=== PATIENT | male | born 1965 | race Caucasian/White ===

== ENCOUNTER 2018-01-08 02:26 | Emergency (ER) | payer BC, MEDICARE, MEDICAID, SELFPAY ==
[2018-01-08 02:27] VITALS: BP 124/69; PULSE 98; RESP 20; TEMP 36.4; O2SAT 95; BMI 31.3
--- NOTE | 2018-01-08 02:41 | NURSING ---
CALLED FOR EKG PER RN REQUEST, PULLED OLD EKG'S FOR
--- NOTE | 2018-01-08 02:45 | RAD_ITS ---
STUDY: X-RAY CHEST REASON FOR EXAM: Male, 52 years old. Chest pain. History of colon cancer with liver metastases. TECHNIQUE: AP portable chest. COMPARISON: January 21, 2017. FINDINGS: Left subclavian port with the tip in the lower superior vena cava unchanged. No pneumothorax. The lungs are clear and expanded. There is no demonstrated pleural abnormality. Normal size heart. Normal mediastinum and ruby. Normal visualized pulmonary arteries. Normal visualized aortic arch and descending thoracic aorta. Normal visualized thoracic spine. Normal visualized ribs, clavicles, and shoulders. There is no demonstrated abnormality of the visualized soft tissue structures of the upper abdomen. RAD/Chest 1 View (Portable) IMPRESSION: Stable chest, no acute cardiopulmonary disease. Electronically Signed: Jose Garay MD at 3:15 EST , Service support ,
--- NOTE | 2018-01-08 02:45 | EKG12_ITS ---
Test Reason : Blood Pressure : / mmHG Vent. Rate : 095 BPM Atrial Rate : 095 BPM P-R Int : 172 ms QRS Dur : 090 ms QT Int : 366 ms P-R-T Axes : 035 042 044 degrees QTc Int : 459 ms Normal sinus rhythm Normal ECG Confirmed by JAZMINE AGUILAR MD ([id number]), assistant production editor EVELYN DILL ([id number]) on 01/08/2018 1:47:28 PM Referred By: ENEDINA Confirmed By:JAZMINE AGUILAR MD
--- NOTE | 2018-01-08 02:49 | CT_ITS ---
STUDY: CTA CHEST REASON FOR EXAM: Male, 52 years old. Back, chest and right neck pain. History of colon cancer with metastases to the liver. RADIATION DOSAGE (If Supplied By Facility): CTDIvol = ( 13.53 ) mGy, DLP = ( 1372.58 ) mGycm TECHNIQUE: The examination was performed with the intravenous administration of 100ml ml of Isovue 370 contrast material. Post-processing of the angiographic images was performed, with multiplanar reformation and 3D reconstruction. Individualized dose optimization techniques were used for this CT. COMPARISON: None. FINDINGS: Left subclavian port with the tip in superior vena cava. Normal enhancement of the main pulmonary artery and right and left pulmonary arteries. Normal enhancement of the bilateral peripheral pulmonary arteries. There is no demonstrated pulmonary embolism. Normal thoracic aorta and visualized great vessels. There is no demonstrated aortic dissection. The heart is not enlarged. Coronary artery calcifications. No pericardial effusion. Normal mediastinum. Normal hilar regions. Normal visualized trachea and bronchi. The lungs are well expanded. Normal pulmonary parenchyma. Normal pleura. Normal chest wall structures. Mild multilevel degenerative changes of the thoracic spine. Postsurgical changes suggestive of biopsy right lobe of the liver. CT/CTA Chest W/WO Contrast IMPRESSION: No pulmonary embolus or thoracic aortic dissection. Coronary artery calcifications. Postsurgical changes of the liver. Electronically Signed: Jose Garay MD at 4:15 EST , Service support ,
--- NOTE | 2018-01-08 02:49 | CT_ITS ---
STUDY: CTA NECK WITH CONTRAST BILATERAL REASON FOR EXAM: Male, 52 years old. Chest, right back and neck pain. History of colon cancer with metastases to the liver. RADIATION DOSAGE (If Supplied By Facility): CTDIvol = ( 13.53 ) mGy, DLP = ( 1372.58 ) mGycm. Individualized dose optimization techniques were used for this CT.? FLUOROSCOPY TIME (if supplied): ( ) minutes/seconds TECHNIQUE: Axial images through the neck after administration of 100 mL Isovue-370 intravenous contrast with sagittal coronal reconstructions. COMPARISON: CT cervical spine December 28, 2016. FINDINGS: Normal aortic arch. Normal takeoff of the great vessels. Normal right common carotid, internal carotid and external carotid arteries. Normal left carotid bulb. Normal left common carotid, internal carotid and external carotid arteries. Very minimal atherosclerotic calcification left carotid bulb. Normal vertebral arteries. Vertebral arteries are codominant. Multilevel degenerative changes of the cervical spine along with prominent anterior osteophytes C4-5 and C5-6 unchanged since December 2016. C4-5 broad-based central disc bulge produces mild spinal stenosis. C5-6 posterior osteophyte and broad-based central disc bulge produces mild spinal stenosis. C6-7 posterior osteophyte broad-based central disc bulge produces mild spinal stenosis. CT/CTA Neck W/WO Contrast IMPRESSION: Normal carotid and vertebral arteries. Multilevel degenerative changes of the mid and lower cervical spine which have remained stable. Electronically Signed: Jose Garay MD at 4:35 EST , Service support ,
--- NOTE | 2018-01-08 02:54 | ED.VISSUMM ---
- ER Visit Summary Date of Service: 01/08/18 Chief Complaint: Near syncope History of Present Illness: The patient is a 52 M who presents about 1 hour after getting up in the middle of the night, he blew his nose and sneezed; he has felt runny nose and congestion just today. He suddenly felt near syncopal, with left-sided chest discomfort, mid back discomfort, right lateral/posterior neck discomfort, and discomfort down his left upper extremity. He has chronic pain in his upper extremities because of neuropathy but states this is significantly worse and more prominent. Chest discomfort is nonpleuritic. He states he does not feel as bad as he did when it occurred, but all the symptoms are still persistent. He denies losing consciousness. No headache. No trauma or falls/injury. His neck on the right hurts worse when he turns his head to the left. States he felt a little short of breath. He says that the nitroglycerin and aspirin a paramedics gave him seem to help his discomfort. He has a history of stage IV colon cancer, last year they found recurrence in his liver, he spent hours in the operating room at [facility] and about a week in the hospital afterwards, and he states he was just given a 6 month cancer-free notice by them. He is also a diet-controlled type II diabetic. Physical Examination: Vital signs are stable with no fever, pulse ox 95 on room air, blood pressure 150/72, heart rate 91, respirations 20. Heart is regular with no murmur. Lungs are clear to auscultation throughout with equal breath sounds present bilaterally. His right sternocleidomastoid is tender to palpation, and he has no carotid bruits bilaterally. He is tender in his back in the right rhomboid area, right thoracic paraspinal, without midline tenderness or signs of trauma or any rash. He states this tenderness is reproducing his pain. He has equal bilateral 2+/4 radial pulses. No calf tenderness or pedal edema. Test Results: EKG is normal, with a rate of 95, sinus rhythm, no acute injury pattern, normal axis, unchanged compared with prior. Other than a glucose of 250, his labs are unremarkable including a negative troponin. Portable chest x-ray unremarkable with no pneumothorax or significantly widened mediastinum/cardiomegaly. CT angiography of the neck and chest were obtained to rule out dissection, they are negative and also show no presence of pulmonary emboli. Emergency Department Course and Treatment: Initially nitroglycerin paste was placed on his chest, on reevaluation he is feeling much better. Paste was removed and he remained feeling well with no further chest discomfort. A 3 hour repeat troponin was obtained, it returned negative. I think this is enough to discharge him home safely. I suspect he had neck and back muscle strain and possibly a vasovagal near syncopal episode. He has chronic peripheral neuropathy in his arms, and with possibly straining his neck, it could have temporarily exacerbated his neuropathy. Treatment Plan: Supportive with close outpatient follow-up as needed or returning to the ER if worse Disposition: Discharge home Impression: Chest pain, unspecified Vasovagal near syncope Cervical and thoracic myofascial strain Upper extremity peripheral neuropathy This note was generated with [employer] dictation software. It may contain incorrect words, spelling, and punctuation that were not noted in review of the chart prior to signing ED Disposition - Plan for ED Patient: Disposition: Home or Assisted Living Chief Complaint: Chest Pain Instructions: ED Chest Pain NonCardiac, ED Sprain Thoracic Spine Referrals: Elizabeth Rodriguez MD [Primary Care Provider] - 3-5 Days if not improving
[2018-01-08 02:55] VITALS: BP 150/72; PULSE 91
[2018-01-08] MEDS: Nitroglycerin Oint 1 INCH PACKET TRANSDERM. (02:55)
[2018-01-08 02:56] LABS: Absolute Lymphocyte Count 1.16 X10^3/ul (0.83-4.51); Absolute Neutrophil Count 1.8 X10^3/uL (2.0-7.7); Basophil# 0.01 X10^3/uL; Basophil% 0.3 % (0-1); Eosinophil# 0.03 X10^3/uL; Eosinophils% 0.9 % (0-5); Hematocrit 37.1 % (40-54); Hemoglobin 13.1 g/dl (13.0-16.5); Lymphocyte # 1.16 X10^3/ul (4.0); Lymphocyte % 33.1 % (19-41); Mean Corp Hgb Conc 35.3 g/gl (32-36); Mean Corpuscular Hgb 30.4 pg (27.0-32.0); Mean Corpuscular Volume 86.1 fL (80-94); Mean Platelet Vol. 9.9 fl (6.2-12.0); Monocyte# 0.48 X10^3/uL; Monocyte% 13.7 % (0-10); Neutrophil # 1.81 X10^3/uL (2.7-7.7); Neutrophil % 51.7 % (47-70); Platelet Count 137 K/mm3 (150-450); RBC Distribution Width CV 11.7 % (11.6-14.6); RBC Distribution Width SD 35.7 fl (35.1-43.9); Red Blood Count 4.31 M/mm3 (4.6-6.2); White Blood Count 3.5 K/mm3 (4.4-11.0)
[2018-01-08 02:57] LABS: POSITIVE COUNT NO; POSITIVE DIFFERENTIAL NO; POSITIVE MORPHOLOGY NO
[2018-01-08 03:10] LABS: Anion Gap 8 (5-15); BUN 17 mg/dL (7-18); BUN/Creat Ratio 22.4 RATIO (10-20); Calcium,Total 8.1 mg/dL (8.5-10.1); Chloride 105 mmol/L (98-107); Creatinine, Serum 0.76 mg/dL (0.70-1.30); EST Glomerular Filtration Rate 113 mL/min (>60); Est Glom Filt Rate - Afr Amer 137 mL/min (>60); Estimated Creatinine Clearance 100.27 ml/min; Glucose 250 mg/dL (74-106); Potassium 3.9 mmol/L (3.5-5.1); Sodium Level 139 mmol/L (136-145)
[2018-01-08 04:26] VITALS: BP 122/72; PULSE 85; RESP 15; O2SAT 98
[2018-01-08 06:00] VITALS: BP 111/55; PULSE 89; RESP 19; O2SAT 99
[2018-01-08 06:23] VITALS: BP 110/52; PULSE 88; RESP 17; O2SAT 98
== END 2018-01-08 06:23 | disposition home or self-care (01) ==
PROVIDERS: Emergency Provider Emergency Medicine; Family Provider Internal Medicine; PCP Internal Medicine
DX: R55 Syncope and collapse (principal); R07.9 Chest pain, unspecified; S16.1XXA Strain of muscle, fascia and tendon at neck level, initial encounter; S29.012A Strain of muscle and tendon of back wall of thorax, initial encounter; X50.1XXA Overexertion from prolonged static or awkward postures, initial encounter; Y93.89 Activity, other specified; Y92.9 Unspecified place or not applicable; E11.42 Type 2 diabetes mellitus with diabetic polyneuropathy; Z79.4 Long term (current) use of insulin; Z85.038 Personal history of other malignant neoplasm of large intestine; Z85.05 Personal history of malignant neoplasm of liver; K21.9 Gastro-esophageal reflux disease without esophagitis; F31.9 Bipolar disorder, unspecified; Z79.82 Long term (current) use of aspirin; Z79.899 Other long term (current) drug therapy; Z87.891 Personal history of nicotine dependence
CPT/HCPCS: 70498; 71045; 71275; 80048; 84484; 85025; 93005; 96360; 96361; 99285; J7030; J7040; Q9967; A4216

== ENCOUNTER 2019-04-03 14:23 | Emergency (ER) | payer BC, MEDICARE, SELFPAY ==
[2019-04-03 14:24] VITALS: BP 111/87; PULSE 104; RESP 15; TEMP 36.6; O2SAT 97; BMI 28.9
--- NOTE | 2019-04-03 15:28 | ED.DCSUM_ITS ---
- ER Visit Summary Date of Service: 04/03/19 Chief Complaint: [Abdominal pain] History of Present Illness: The patient is a 54 M [presents the emergency department complaint of abdominal pain that started 5 days ago. Patient states that he started with vomiting and diarrhea that was frequent. Patient has not vomited since last evening. Patient has not had any watery stools today. Patient continues to describe diffuse abdominal discomfort and cramping. He denies any fevers. Patient states that he is noted some blood on the toilet paper when he wipes from all the irritation. There is no blood in the toilet bowl itself. Patient denies urinary symptoms. Patient denies any recent travel or recent antibiotic usage. Patient states that he has a history of colon cancer that was remote. Patient's had prior appendectomy, cholecystectomy, partial colectomy, and liver resection. Is a diabetic and has history of high cholesterol as well as bipolar disorder.] Physical Examination: [HEENT-PERRLA, EOMI. Cranial nerves II through XII grossly intact. TMs clear. Mucous membranes moist. No adenopathy. Cardiovascular-regular rate and rhythm without murmur or ectopy Lungs-clear to auscultation, chest wall stable without crepitus or subcu emphysema Abdomen-normoactive bowel sounds, soft. Patient has diffuse tenderness to palpation. There is no rebound, rigidity, or perineal signs. Extremities-intact ?4, normal range of motion, normal pulses, atraumatic] Test Results: [CBC with differential showing a 5.6, hemoglobin 14, hematocrit 41, placed 150. Chemistries unremarkable other than a slightly depressed potassium at 3.4. Lactate was 1.3. Patient was unable to produce a stool sample to send for enteric pathogens.] Emergency Department Course and Treatment: [Patient received a liter normal same fluid bolus. Patient received potassium chloride 40 mg once p.o. Patient initially given Bentyl. Patient continued complaint of pain and received 1 Madison for pain.] Treatment Plan: Patient given a prescription for Bentyl and a few Madison for severe pain. Patient advised to push fluids and follow-up with primary care physician in 3 to 5 days. Patient advised to return if persistent vomiting, diarrhea, dehydration, worsening abdominal pain, or conditions worsen anyway. [] Disposition: [Discharged home in stable condition] Impression: [Viral gastroenteritis] This note was generated with [employer] software. It may contain incorrect words, spelling, and punctuation that were not noted in review of the chart prio r to signing ED Disposition - Plan for ED Patient: Referrals: Elizabeth Rodriguez MD [Primary Care Provider] -
[2019-04-03 15:46] LABS: Absolute Lymphocyte Count 1.49 X10^3/ul (0.83-4.51); Absolute Neutrophil Count 3.4 X10^3/uL (2.0-7.7); Basophil# 0.01 X10^3/uL; Basophil% 0.2 % (0-1); Eosinophil# 0.06 X10^3/uL; Eosinophils% 1.1 % (0-5); Hematocrit 41.5 % (40-54); Hemoglobin 14.3 g/dl (13.0-16.5); Lymphocyte # 1.49 X10^3/ul (4.0); Lymphocyte % 26.8 % (19-41); Mean Corp Hgb Conc 34.5 g/gl (32-36); Mean Corpuscular Hgb 29.3 pg (27.0-32.0); Mean Platelet Vol. 9.6 fl (6.2-12.0); Monocyte% 10.8 % (0-10); Neutrophil % 60.9 % (47-70); Platelet Count 157 K/mm3 (150-450); RBC Distribution Width CV 12.5 % (11.6-14.6); RBC Distribution Width SD 38.2 fl (35.1-43.9); Red Blood Count 4.88 M/mm3 (4.6-6.2); White Blood Count 5.6 K/mm3 (4.4-11.0)
[2019-04-03 15:49] LABS: POSITIVE COUNT NO; POSITIVE DIFFERENTIAL NO; POSITIVE MORPHOLOGY NO
[2019-04-03] MEDS: 0.9% Normal Saline 1,000 ML 1000 ML IV (15:50)
[2019-04-03] MEDS: Dicyclomine 20 MG/2 ML Vial IM (15:51)
[2019-04-03 16:19] LABS: Lactic Acid 1.3 mmol/L (0.4-2.0)
[2019-04-03 16:20] LABS: ALB/GLOB Ratio 0.9 RATIO (0.9-2.4); AST(SGOT) 24 U/L (15-37); Alanine Aminotransfer ALT/SGPT 49 U/L (16-61); Albumin, Serum 3.6 g/dL (3.2-5.0); Alkaline Phosphatase 81 U/L (45-117); Anion Gap 8 (5-15); BUN 18 mg/dL (7-18); BUN/Creat Ratio 22.4 RATIO (10-20); Calcium,Total 8.7 mg/dL (8.5-10.1); Chloride 103 mmol/L (98-107); EST Glomerular Filtration Rate 106 mL/min (>60); Est Glom Filt Rate - Afr Amer 128 mL/min (>60); Estimated Creatinine Clearance 93.04 ml/min; Globulin 3.8 g/dL (2.2-4.2); Glucose 188 mg/dL (74-106); Potassium 3.4 mmol/L (3.5-5.1); Protein, Total 7.4 g/dL (6.4-8.2); Sodium Level 138 mmol/L (136-145)
[2019-04-03 16:23] VITALS: BP 131/79; PULSE 77; RESP 15; O2SAT 97
--- NOTE | 2019-04-03 17:02 | ED.DEP ---
ED Disposition - Plan for ED Patient: Instructions: ED Gastroenteritis Viral Prescriptions: Hydrocodone Bitart/Apap 5-325 [[place] 5MG-325MG] 1 tab PO Q4H PRN PRN 2 Days #10 tab PRN Reason: Pain Ondansetron [Zofran Odt] 4 mg PO Q8H PRN PRN #10 tab PRN Reason: Nausea Dicyclomine HCl [Bentyl] 20 mg PO TIDAC #20 cap Referrals: Elizabeth Rodriguez MD [Primary Care Provider] - 3-5 Days
[2019-04-03 17:11] VITALS: BP 124/70; PULSE 84; RESP 19; O2SAT 98
[2019-04-03] MEDS: HYDROcodone Bitartrate/Apap 5/325 Tablet PO (17:13)
== END 2019-04-03 17:21 | disposition home or self-care (01) ==
LOC: ED 15:20
PROVIDERS: Emergency Provider Emergency Medicine; Family Provider Internal Medicine; PCP Internal Medicine
DX: A08.4 Viral intestinal infection, unspecified (principal); E78.00 Pure hypercholesterolemia, unspecified; E11.9 Type 2 diabetes mellitus without complications; F31.9 Bipolar disorder, unspecified; Z79.82 Long term (current) use of aspirin; Z79.4 Long term (current) use of insulin; Z79.899 Other long term (current) drug therapy
CPT/HCPCS: 36591; 80053; 83605; 85025; 96372; 99283; J7030; A4216

== ENCOUNTER → 2019-06-18 07:48 | Outpatient (CLI) | payer BC, MEDICARE, SELFPAY ==
--- NOTE | 2019-06-18 07:58 | VDUE_ITS ---
Reason For Study: Occlusion of right jugular vein Right Proximal Right jugular vein is spontaneous, widely patent, phasic, with no intraluminal echogenicity noted. Right subclavian vein is spontaneous, widely patent, phasic, with no intraluminal echogenicity noted. Right Lower Arm Right radial vein is compressible. Right ulnar vein is compressible. Right Arm Right axillary vein is spontaneous, patent, phasic, competent, compressible and demonstrates augmentation. Right brachial vein is compressible. Right cephalic vein is compressible. Right basilic vein is compressible. Patient Safety Prelim to Laura. Interpretation Summary No evidence for acute deep venous thrombosis[right] upper extremity with patent and compressible cephalic and basilic veins. Ordering Physician: Farhan Sanchez Referring Physician: Elizabeth Rodriguez M.D. Performed By: Martha Craft RVT ?
== END ==
PROVIDERS: Family Provider Internal Medicine; PCP Internal Medicine; Referring Provider Internal Medicine Hematology & Oncology; Visit Provider Internal Medicine Hematology & Oncology
DX: I82.C11 Acute embolism and thrombosis of right internal jugular vein (principal); M79.89 Other specified soft tissue disorders
CPT/HCPCS: 93971

== ENCOUNTER 2020-01-17 17:56 | Emergency (ER) | payer BC, MEDICARE, SELFPAY ==
[2020-01-17 17:58] VITALS: BP 142/71; PULSE 108; RESP 15; TEMP 38.1; O2SAT 95; BMI 30.3
--- NOTE | 2020-01-17 18:36 | RAD_ITS ---
STUDY: X-RAY CHEST REASON FOR EXAM: Male, 54 years old. PT ARRIVES TO ED WITH FEVER, CONGESTION, AND COUGH. RECENTLY FINISH ORAL CHEMO FOR COLON CA THAT HAS TRAVELED TO HIS LIVER TECHNIQUE: AP COMPARISON: 02/19/2017 FINDINGS: Left subclavian chest port is stable. A Reveal insertable front desk monitor projects over the left chest. The lungs are clear and expanded. There is no demonstrated pleural abnormality. Normal size heart. Normal mediastinum and ruby. Normal visualized pulmonary arteries. Normal visualized aortic arch and descending thoracic aorta. Normal visualized thoracic spine. Normal visualized ribs, clavicles, and shoulders. There is no demonstrated abnormality of the visualized soft tissue structures of the upper abdomen. RAD/Chest 1 View (Portable) IMPRESSION: Stable, nonacute portable x-ray examination of the chest. Electronically Signed: Jean Will MD (Brooks) at 18:56 EST , Service support ,
--- NOTE | 2020-01-17 18:37 | ED.DCSUM_ITS ---
History of Present Illness Chief Complaint: Fever Detail of Chief Complaint: Cough and congestion Informant: Patient Onset: Days - 2 days Current Severity: Moderate Maximum Severity: Moderate - Past Medical History (1) Bipolar disorder Status: Chronic (2) Colon cancer Status: Chronic (3) DM type 2 (diabetes mellitus, type 2) Status: Chronic (4) Hyperlipidemia Status: Chronic (5) Neurogenic syncope Status: Chronic Past Medical History - Allergies and Home Meds Allergies/Adverse Reactions: Allergies amoxicillin trihydrate [From Augmentin] Allergy (Intermediate, Verified 04/03/19 14:27) Swelling eszopiclone [From Lunesta] Allergy (Mild, Verified 04/03/19 14:27) Rash tetracycline [Tetracycline] Allergy (Unknown, Verified 04/03/19 14:27) Unknown aspirin [From Fiorinal] Allergy (Verified 04/03/19 14:27) Unknown butalbital [From Fiorinal] Allergy (Verified 04/03/19 14:27) Unknown caffeine [From Fiorinal] Allergy (Verified 04/03/19 14:27) Unknown coconut Allergy (Verified 04/03/19 14:27) Anaphylaxis coconut oil Allergy (Verified 04/03/19 14:27) Anaphylaxis divalproex sodium [From Depakote] Allergy (Verified 04/03/19 14:27) Unknown fludrocortisone acetate [From Florinef] Allergy (Verified 04/03/19 14:27) Unknown ketorolac tromethamine [From Toradol] Allergy (Verified 04/03/19 14:27) Unknown meperidine HCl [From Demerol] Allergy (Verified 04/03/19 14:27) Swelling Penicillins Allergy (Verified 04/03/19 14:27) Swelling potassium clavulanate [From Augmentin] Allergy (Verified 04/03/19 14:27) Swelling sitagliptin phosphate [From Januvia] Allergy (Verified 04/03/19 14:27) Other zolpidem tartrate [From Ambien] Allergy (Verified 04/03/19 14:27) Unknown metformin Adverse Reaction (Mild, Verified 04/03/19 14:27) Nausea doxycycline Adverse Reaction (Verified 04/03/19 14:27) Unknown morphine Allergy (Severe, Uncoded 04/03/19 14:27) Swelling Primary Care Physician: Elizabeth Rodriguez MD [Primary Care Provider] - Surgical History: - - Bowel resection, appendectomy, port placement, right shoulder surgery ?3, right knee surgery ?1. Lives: Spouse/ Significant Other Smoking Status: Former smoker - Family History Paternal Family History: Reports: No pertinent history, - - No family history of colonic cancer in first-degree family relative. Maternal Family History: Reports: No pertinent history Review of Systems General: Reports: Fever Eyes: Denies: Visual changes - bilaterally ENT: Denies: Bilateral ear pain, Sore throat Cardiovascular: Denies: Chest pain Respiratory: Reports: Cough, Sputum Gastrointestinal: Denies: Nausea, Vomiting Genitourinary: Denies: Dysuria Musculoskeletal: Reports: Myalgias. Denies: Extremity Pain Skin: Denies: Rash Neurological: Denies: Headache Allergy: Denies: Uticaria Physical Exam Vital Signs/Narrative: Vital Signs Temp Pulse Resp BP Pulse Ox 01/17/20 17:58 100.6 F H 108 H 15 142/71 H 95 Inital Vital Signs reviewed: Yes General: Well nourished, Well developed Head: Normocephalic ENT: Moist mucous membranes Neck: Supple Cardiovascular: Regular rate, Regular rhythm Respiratory: No distress, CTA bilaterally Abdomen: Soft, Nontender Skin: Normal color Neurological: Alert, Oriented x3 Psychological: Normal affect Diagnostic/Tx/Re-eval Impressions Chest X-Ray 01/17/20 18:36 IMPRESSION: Stable, nonacute portable x-ray examination of the chest. Electronically Signed: Jean Will MD (Brooks) at 18:56 EST , Service support , 01/17/20 18:36 Chest 1 View (Portable) [RAD] Stat 01/17/20 18:55 Mucosa - Nose Influenza Types A,B Direct FA (SUNDAR) - Final Influenzae A Laboratory Results 01/17/20 01/17/20 18:56 18:56 WBC 4.7 RBC 4.35 L Hgb 13.3 Hct 39.6 L MCV 91.0 MCH 30.6 MCHC 33.6 RDW Std Deviation 44.9 H RDW Coeff of Roland 13.5 Plt Count 89 L MPV 9.5 Immature Gran % (Auto) 0.200 Neut % (Auto) 75.3 H Lymph % (Auto) 13.8 L Starr % (Auto) 10.3 H Eos % (Auto) 0.2 Baso % (Auto) 0.2 Absolute Neuts (auto) 3.5 Absolute Lymphs (auto) 0.64 L Nucleated RBC % 0 Differential Comment SCANNED Platelet Estimate MOD DEC RBC Morphology NORM C+C Sodium 138 Potassium 3.9 Chloride 106 Carbon Dioxide 28.0 Anion Gap 4 L BUN 12 Creatinine 0.87 Estim Creat Clear Calc 85.56 Est GFR (MDRD) Af Amer 116 Est GFR (MDRD) Non-Af 96 BUN/Creatinine Ratio 13.7 Glucose 173 H Calcium 8.2 L Total Bilirubin 0.40 Direct Bilirubin 0.21 AST 41 H ALT 60 Alkaline Phosphatase 74 Total Protein 7.3 Albumin 3.4 Globulin 3.9 - Medical Decision Making Patient's oral temperature here was 100.3. He was given Tylenol. Blood work does not reveal evidence of neutropenia. His influenza test is positive for flu A. He will be treated with a course of Tamiflu, first dose given here. He is given return instructions. ED Disposition - Plan for ED Patient: Disposition: Home or Assisted Living Diagnosis: Influenza Instructions: INFLUENZA (Adult) Prescriptions: Oseltamivir Phosphate [Tamiflu] 75 mg PO BID #10 cap Transmission Status: Pending to [id number] [place] Referrals: Elizabeth Rodriguez MD [Primary Care Provider] - Farhan Sanchez DO [STAFF PHYSICIAN] - 3-5 Days
[2020-01-17 19:02] VITALS: TEMP 38
[2020-01-17] MEDS: 0.9% Normal Saline 1,000 ML 150 ML IV (19:03)
[2020-01-17] MEDS: Acetaminophen 325 MG Tablet 650 MG PO (19:03)
[2020-01-17 19:08] VITALS: BP 133/68; PULSE 98; RESP 16; O2SAT 95
[2020-01-17 19:08] LABS: Absolute Lymphocyte Count 0.64 X10^3/uL (0.83-4.51); Absolute Neutrophil Count 3.5 X10^3/uL (2.0-7.7); Basophil# 0.01 X10^3/uL; Basophil% 0.2 % (0-1); Eosinophil# 0.01 X10^3/uL; Eosinophils% 0.2 % (0-5); Hematocrit 39.6 % (40-54); Hemoglobin 13.3 g/dL (13.0-16.5); Lymphocyte # 0.64 X10^3/ul (4.0); Lymphocyte % 13.8 % (19-41); Mean Corp Hgb Conc 33.6 g/dL (32-36); Mean Corpuscular Hgb 30.6 pg (27.0-32.0); Mean Platelet Vol. 9.5 fl (6.2-12.0); Monocyte# 0.48 X10^3/uL; Monocyte% 10.3 % (0-10); NRBC Flagged by Analyzer 0 % (0-5); Neutrophil % 75.3 % (47-70); POSITIVE COUNT YES; Platelet Count 89 K/mm3 (150-450); RBC Distribution Width CV 13.5 % (11.6-14.6); RBC Distribution Width SD 44.9 fl (35.1-43.9); Red Blood Count 4.35 M/mm3 (4.6-6.2); White Blood Count 4.7 K/mm3 (4.4-11.0)
[2020-01-17 19:15] LABS: Differential Indicated SCAN CRITERIA MET
[2020-01-17 19:30] LABS: Differential Comment SCANNED; Platelet Estimate MOD DEC (ADEQ); Red Cell Morphology NORM C+C NORMAL (NORM C&C)
[2020-01-17 19:32] LABS: AST(SGOT) 41 U/L (15-37); Alanine Aminotransfer ALT/SGPT 60 U/L (16-61); Albumin, Serum 3.4 g/dL (3.2-5.0); Alkaline Phosphatase 74 U/L (45-117); Anion Gap 4 (5-15); BUN 12 mg/dL (7-18); BUN/Creat Ratio 13.7 RATIO (10-20); Bilirubin, Direct 0.21 mg/dL (0.00-0.30); Calcium,Total 8.2 mg/dL (8.5-10.1); Chloride 106 mmol/L (98-107); Creatinine, Serum 0.87 mg/dL (0.70-1.30); EST Glomerular Filtration Rate 96 mL/min (>60); Est Glom Filt Rate - Afr Amer 116 mL/min (>60); Estimated Creatinine Clearance 85.56 ml/min; Globulin 3.9 g/dL (2.2-4.2); Glucose 173 mg/dL (74-106); Potassium 3.9 mmol/L (3.5-5.1); Protein, Total 7.3 g/dL (6.4-8.2); Sodium Level 138 mmol/L (136-145)
[2020-01-17] MEDS: Oseltamivir Phosphate 75 MG Capsule PO (20:23)
[2020-01-17 20:27] VITALS: BP 127/66; PULSE 96; RESP 18; TEMP 37.5; O2SAT 94
== END 2020-01-17 20:28 | disposition home or self-care (01) ==
PROVIDERS: Emergency Provider Emergency Medicine; PCP Internal Medicine
DX: J11.1 Influenza due to unidentified influenza virus with other respiratory manifestations (principal); F31.9 Bipolar disorder, unspecified; E11.9 Type 2 diabetes mellitus without complications; E78.5 Hyperlipidemia, unspecified; Z79.82 Long term (current) use of aspirin; Z79.4 Long term (current) use of insulin; Z87.891 Personal history of nicotine dependence
CPT/HCPCS: 36591; 71045; 80048; 80076; 85025; 87040; 87804; 96360; 99285; J7030; A4216

== ENCOUNTER 2020-07-28 18:08 | Emergency (ER) | payer BC, MEDICARE, SELFPAY ==
[2020-07-28 18:09] VITALS: BP 127/73; PULSE 89; RESP 16; TEMP 36.3; O2SAT 99; BMI 29.4
--- NOTE | 2020-07-28 18:38 | CT_ITS ---
STUDY: CT BRAIN WITHOUT CONTRAST REASON FOR EXAM: Male, 55 years old. Fall. RADIATION DOSAGE (If Supplied By Facility): CTDIvol = ( 44.99 ) mGy, DLP = ( 762.36 ) mGycm TECHNIQUE: Transaxial CT imaging of the brain was performed without administration of intravenous contrast material. Individualized dose optimization techniques were used for this CT. COMPARISON: 12/28/2016. FINDINGS: Normal soft tissue structures. Normal calvarium. Normal size ventricles and extra-axial spaces for the patient''s age. Normal white matter tracts of the cerebral hemispheres. Normal basal ganglia and thalami. Normal brainstem. Normal cerebellum. There is no intracranial hemorrhage. There are no findings of an acute ischemic infarction. Normal visualized paranasal sinuses. CT/Brain/Head without Contrast IMPRESSION: No acute intracranial or calvarial abnormality. There is no major interval change. Electronically Signed: Elijah Read DO at 20:12 EDT Tel [phone], Service support ,
[2020-07-28 18:59] VITALS: BP 129/71; PULSE 87; RESP 18
[2020-07-28 19:16] LABS: Absolute Lymphocyte Count 0.33 X10^3/uL (0.83-4.51); Absolute Neutrophil Count 1.2 X10^3/uL (2.0-7.7); Eosinophil# 0.03 X10^3/uL; Eosinophils% 1.7 % (0-5); Hematocrit 30.1 % (40-54); Lymphocyte # 0.33 X10^3/ul (4.0); Lymphocyte % 19.2 % (19-41); Mean Corp Hgb Conc 33.2 g/dL (32-36); Mean Corpuscular Hgb 30.7 pg (27.0-32.0); Mean Corpuscular Volume 92.3 fL (80-94); Mean Platelet Vol. 10.5 fl (6.2-12.0); Monocyte# 0.18 X10^3/uL; Monocyte% 10.5 % (0-10); NRBC Flagged by Analyzer 0 % (0-5); Neutrophil # 1.17 X10^3/uL (2.7-7.7); POSITIVE COUNT YES; POSITIVE DIFFERENTIAL YES; Platelet Count 63 K/mm3 (150-450); RBC Distribution Width CV 13.6 % (11.6-14.6); RBC Distribution Width SD 45.1 fl (35.1-43.9); Red Blood Count 3.26 M/mm3 (4.6-6.2); White Blood Count 1.7 K/mm3 (4.4-11.0)
[2020-07-28 19:19] LABS: Differential Indicated SCAN CRITERIA MET
[2020-07-28 19:23] LABS: International Normalized Ratio 1.2; Prothrombin Time (Protime)PT. 14.4 SECONDS (11.7-14.9)
[2020-07-28 19:24] LABS: Anion Gap 2 (5-15); BUN 9 mg/dL (7-18); BUN/Creat Ratio 12.7 RATIO (10-20); Calcium,Total 7.7 mg/dL (8.5-10.1); Chloride 109 mmol/L (98-107); Creatinine, Serum 0.71 mg/dL (0.70-1.30); EST Glomerular Filtration Rate 121 mL/min (>60); Est Glom Filt Rate - Afr Amer 147 mL/min (>60); Estimated Creatinine Clearance 103.59 ml/min; Glucose 292 mg/dL (74-106); Potassium 3.8 mmol/L (3.5-5.1); Sodium Level 141 mmol/L (136-145)
--- NOTE | 2020-07-28 19:45 | CT_ITS ---
STUDY: CT CERVICAL SPINE WITHOUT CONTRAST REASON FOR EXAM: Male, 55 years old. PT STATED FALL/acute traumatic neck injury RADIATION DOSAGE (If Supplied By Facility): CTDIvol = ( 25.84 ) mGy, DLP = ( 611.57 ) mGycm TECHNIQUE: High resolution transaxial imaging was performed without contrast material. Sagittal and coronal images were reconstructed. Individualized dose optimization techniques were used for this CT. COMPARISON: Prior cervical CT exam of 12/28/2016 FINDINGS: Normal craniovertebral junction. Normal anterior atlantoaxial articulation. Normal odontoid process. Straightening and slight reversal of cervical lordosis. Negative for acute fracture of the cervical spine. C2-3: Disc narrowing and posterior ligament calcification advanced facet set arthrosis with effusion on the left. Negative for central or foraminal narrowing. C3-4: Advanced disc narrowing and uncovertebral arthrosis. Advanced facet arthrosis on the left. Posterior disc osteophyte without central stenosis. Moderate foraminal narrowing on the left. C4-5: Disc narrowing and uncovertebral arthrosis with marked anterior spondylitic endplate changes. Anterior osteophyte of C4 now appears to be discontinuous since prior examination. Posterior disc osteophyte with moderate to severe central stenosis and bilateral mild foraminal narrowing. C5-6: Degenerative disc narrowing and uncovertebral arthrosis. Substantial anterior spondylitic endplate changes. Posterior disc osteophyte with severe central stenosis and mild bilateral foraminal narrowing. C6-7: Disc narrowing and uncovertebral arthrosis. Posterior disc osteophyte with moderate to severe spinal stenosis and mild bilateral foraminal narrowing. C7-T1: Degenerative disc narrowing and uncovertebral arthrosis. Posterior disc osteophyte with moderate central stenosis and bilateral moderate foraminal narrowing. Normal visualized soft tissue structures. CT/Spine Cervical without Contras IMPRESSION: Straightening with slight reversal of cervical lordosis with otherwise normal alignment. Negative for acute fracture of the cervical spine. Newly visualized discontinuous osteophyte at the base of C3 and discontinuous osteophyte of C4 with posterior ligament calcifications at C2-3 and C3-4 suggest an injury that has occurred since 2017. However, this does not appear to be an acute injury. Advanced degenerative disc and joint changes as stated above. Electronically Signed: Holly Anne MD at 20:20 EDT , Service support ,
--- NOTE | 2020-07-28 19:51 | ED.DCSUM_ITS ---
- ER Visit Summary Date of Service: 07/28/20 Chief Complaint: Fell backwards down a flight of steps History of Present Illness: The patient is a 55 M history of colon CA with liver mets on chemotherapy also diabetes and kidney stones. Patient states that the steps missed a step fell backwards and rolled down a flight of steps. He is had neck pain. Also complaining of right lower leg pain. This was unwitnessed fall no one else was around. He is unsure if he lost consciousness. He denies any nausea or vomiting. He does have a mild headache. He is on no blood thinners. Physical Examination: Middle-aged male vital signs stable afebrile. Accompanied by family. H EENT exam give dry reactive eyes motions are intact. No signs of trauma to his face or scalp. C-spine nontender. Trachea midline. Lungs clear to auscultation bilaterally. Heart regular rhythm no murmur rate about 90. Chest wall nontender. Abdomen soft nondistended normal bowel sounds no peritoneal signs. He has chronic discomfort in his right liver secondary to metastases. There is no bruising of his abdomen. There are no peritoneal signs. Pelvic girdle intact. Patient is moving all 4 extremities. Neurovascular intact. There is no bony deformities. He does have mild tenderness to his right lower tib-fib region. Dorsi plantarflexion intact bilaterally. Normal heater tender strength and range of motion both upper and lower extremities. Back nontender. No bruising. No spine tenderness. Neur ologically is awake and alert. He knows day, month and year. He is answering questions and following commands. His GCS is 15. Test Results: Nurses obtain screening labs white count 1.7 hemoglobin 10 hematocrit 30 platelets are 63,000 all consistent with him undergoing chemotherapy as his blood counts have been low. Electrolytes unremarkable normal creatinine and gap. Glucose 292 is diabetic his INR is 1.2 he is not on any blood thinners. Right tib-fib x-ray 2 views read by myself and the radiologist shows no acute injury. No fracture. CT brain shows no acute injury. No acute bleed read by the radiologist and myself. CT C-spine shows chronic arthritis with chronic changes but no acute fracture read by the radiologist and reviewed by me. Emergency Department Course and Treatment: Patient will require imaging due to his history of cancer chemotherapy screening labs are being obtained. Repeat exam patient is doing well at 21:45 PM. I went over all test results with both he and his family members are comfortable with him being discharged to home. I will have the nurses attempt to ambulate him as long as he is doing well he will be discharged to home. Treatment Plan: Follow-up with his primary care physician. Patient lives with family. Return if worse. Disposition: Discharge Impression: Acute fall down a flight of steps Closed head injury History of colon cancer with liver mets on chemotherapy Acute on chronic pancytopenia secondary to chemotherapy This note was generated with [employer] dictation software. It may contain incorrect words, spelling, and punctuation that were not noted in review of the chart prior to signing ED Disposition - Plan for ED Patient: Referrals: Elizabeth Rodriguez MD [Primary Care Provider] -
--- NOTE | 2020-07-28 19:55 | RAD_ITS ---
STUDY: X-RAY - RIGHT TIBIA AND FIBULA REASON FOR EXAM: Male, 55 years old. 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 UNSURE OF LOC, C/O WEAKNESS, OF CONSFUSION AND DIZZINESS.. PAIN IN LEG TECHNIQUE: 2 view(s) of the tibia and fibula were obtained. COMPARISON: None. FINDINGS: Normal visualized tibia. Normal visualized fibula. There is no demonstrated acute fracture. The soft tissue structures are unremarkable. RAD/Tibia & Fibula 2 Views IMPRESSION: Normal x-ray examination of the tibia and fibula. Electronically Signed: Holly Anne MD at 20:09 EDT , Service support ,
[2020-07-28 20:00] LABS: Differential Comment SCANNED
[2020-07-28 20:01] LABS: Platelet Estimate MOD DEC (ADEQ)
[2020-07-28 20:19] VITALS: BP 131/76; PULSE 82; RESP 16; O2SAT 96
--- NOTE | 2020-07-28 21:49 | ED.DEP ---
ED Disposition - Plan for ED Patient: Disposition: Home or Assisted Living Instructions: ED Mechanical Fall, ED Head Injury Adult Referrals: Elizabeth Rodriguez MD [Primary Care Provider] - 3-5 Days if not improving Additional Instructions: Ice all sore areas. Tylenol for pain. Follow-up with your doctor if not improving. Return to the emergency department if intractable vomiting or acting confused or not acting himself.
[2020-07-28 22:07] VITALS: BP 132/80; PULSE 80; RESP 16
[2020-07-29 12:11] LABS: Pathologist Review Reviewed
== END 2020-07-28 22:28 | disposition home or self-care (01) ==
PROVIDERS: Emergency Provider Emergency Medicine; PCP Internal Medicine
DX: S09.90XA Unspecified injury of head, initial encounter (principal); W10.9XXA Fall (on) (from) unspecified stairs and steps, initial encounter; Y93.9 Activity, unspecified; Y92.9 Unspecified place or not applicable; C18.9 Malignant neoplasm of colon, unspecified; C78.7 Secondary malignant neoplasm of liver and intrahepatic bile duct; D61.810 Antineoplastic chemotherapy induced pancytopenia; E11.9 Type 2 diabetes mellitus without complications; Z79.4 Long term (current) use of insulin; Z79.82 Long term (current) use of aspirin; Z79.899 Other long term (current) drug therapy
CPT/HCPCS: 70450; 72125; 73590; 80048; 85025; 85610; 99282; A4216

== ENCOUNTER 2020-10-12 08:58 | Inpatient (IN) | payer BC, MEDICARE, SELFPAY ==
[2020-10-12] VITALS (10 sets, daily range): BP systolic 120–141; BP diastolic 62–75; PULSE 89–103; RESP 16–18; TEMP 36.4–36.9; O2SAT 93–100; BMI 28.5; BMI 28.6; BMI 28.9
--- NOTE | 2020-10-12 09:14 | CT_ITS ---
STUDY: CT ABDOMEN AND PELVIS WITH CONTRAST REASON FOR EXAM: Male, 55 years old. DISTENDED ABDOMEN. HISTORY OF COLON CANCER , CURRENTLY ON CHEMO . PRIOR BOWEL RESECTION, RADIATION, METS TO LIVER AND LUNGS. 6 REOCCURRENCES. APPY RADIATION DOSAGE (If Supplied By Facility): CTDIvol = ( 11.81 ) mGy, DLP = ( 871.53 ) mGycm TECHNIQUE: Transaxial images were obtained from the dome of the diaphragm to the symphysis pubis without oral contrast. Oral and amp; IV GASTROGRAFIN and amp; 100ML ISOVUE 300 was administered. Sagittal and coronal images were reconstructed. Individualized dose optimization techniques were used for this CT. COMPARISON: CT abdomen and pelvis with intravenous contrast 02/20/2017. FINDINGS: Partial atelectases with air bronchograms in the right posterior lung base and small right pleural fluid. Superimposed pneumonia is worrisome. The visualized portions of the heart are within normal limits. Surgical defect with postop fluid in the right hepatic lobe with surgical clips. Suspicious hypodense area in the right lower hepatic lobe behind the surgical clips. Mass in this area is difficult to exclude. Postsurgical absence of the gallbladder. Normal spleen. Normal pancreas. Normal bilateral adrenal glands. Normal right kidney. Normal left kidney. Suspicious intramural thickening of the antropyloric region and the descending portion of the duodenum. Moderate dilatation of the small bowel loops worrisome for partial distal small bowel obstruction. Opinion, the zone of transition is in the right upper quadrant of the abdomen. There is a small ascites below the right hepatic lobe and along the right paracolic gutter. Small ascites along the left paracolic gutter. Postsurgical absence of the right colon. There are surgical clips in the residual left transverse colon. Postsurgical absence of the appendix. Normal abdominal aorta. Normal inferior vena cava. Normal retroperitoneum. Normal urinary bladder. The prostate gland is normal in size and configuration. Normal abdominal wall. Normal osseous structures. CT/Abdomen/Pelvis WITH Contrast IMPRESSION: 1. Suspicious partial distal small bowel obstruction with a zone of transition located in the right upper quadrant of the abdomen. This may be due to post operative adhesion. 2. Postoperative fluid in the right hepatic lobe surgical site and abnormal hypodense area behind the surgical clips in the right lower hepatic lobe. This hypodense area is uncertain for mass. 3. Small ascites along the paracolic gutters. 4. Partial atelectases with air bronchograms in the right posterior lung base and small right posterior pleural fluid. Superimposed pneumonia is worrisome. 5. No other additional findings or changes when compared to 02/12/2017. Electronically Signed: Rome Willson MD at 12:28 EST , Service support ,
--- NOTE | 2020-10-12 09:16 | ED.DCSUM_ITS ---
History of Present Illness Informant: Patient, Family Narrative: 55-year-old male presents with his for the evaluation of abdominal distention and vomiting. Symptoms began during the night. He has a history of colon cancer with metastasis to liver and lung. He states that he had a partial colectomy in about 2013 here at [facility]. He does not believe he is ever had a bowel obstruction. He states he had a normal bowel movement yesterday. He did not feel distended yesterday. No fevers. No urinary s ymptoms. Last chemotherapy treatment was 3 weeks ago. He is supposed to have chemo every 2 weeks but last week was canceled due to thrombocytopenia. On 14 September 2014 patient underwent a laparoscopic extended right hemicolectomy. He was found to have a near obstructing mid transverse colon cancer with inflammatory adhesions to the posterior aspect of the stomach and the mid transverse colon mesentery. 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 Patient ended up being readmitted to the hospital and 20 September 2014 for small bowel obstruction ve rsus ileus. On 12 June 2017 he underwent surgery for liver metastasis. On 23 May 2019 he underwent diagnostic laparoscopy and laparoscopic partial central hepatectomy. <Og Cardenas - Last Filed: 10/12/20 14:18> <Holden Navarro - Last Filed: 10/12/20 16:18> Chief Complaint: Abd Pain - Past Medical History (1) Neurogenic syncope Status: Chronic (2) DM type 2 (diabetes mellitus, type 2) Status: Chronic (3) Colon cancer Status: Chronic (4) Bipolar disorder Status: Chronic (5) Hyperlipidemia Status: Chronic <Og Cardenas - Last Filed: 10/12/20 14:18> Past Medical History Prior records reviewed: Yes Surgical History: - - Bowel resection, appendectomy, port placement, right shoulder surgery ?3, right knee surgery ?1. Lives: Spouse/ Significant Other Smoking Status: Current some day smoker Drugs: None - Family History Paternal Family History: Reports: No pertinent history, - - No family history of colonic cancer in first-degree family relative. Maternal Family History: Reports: No pertinent history <Og Cardenas - Last Filed: 10/12/20 14:18> <Holden Navarro - Last Filed: 10/12/20 16:18> - Allergies and Home Meds Allergies/Adverse Reactions: Allergies amoxicillin trihydrate [From Augmentin] Allergy (Intermediate, Verified 10/12/20 09:) Swelling eszopiclone [From Lunesta] Allergy (Mild, Verified 10/12/20 09:) Rash tetracycline [Tetracycline] Allergy (Unknown, Verified 10/12/20 09:) Unknown aspirin [From Fiorinal] Allergy (Verified 10/12/20 09:) Unknown butalbital [From Fiorinal] Allergy (Verified 10/12/20 09:) Unknown caffeine [From Fiorinal] Allergy (Verified 10/12/20 09:) Unknown coconut Allergy (Verified 10/12/20 09:) Anaphylaxis coconut oil Allergy (Verified 10/12/20:) Anaphylaxis divalproex sodium [From Depakote] Allergy (Verified 10/12/20 09:) Unknown fludrocortisone acetate [From Florinef] Allergy (Verified 10/12/20 09:) Unknown ketorolac tromethamine [From Toradol] Allergy (Verified 10/12/20 09:) Unknown meperidine HCl [From Demerol] Allergy (Verified 10/12/20 09:) Swelling Penicillins Allergy (Verified 10/12/20 09:) Swelling potassium clavulanate [From Augmentin] Allergy (Verified 10/12/20 09:) Swelling sitagliptin phosphate [From Januvia] Allergy (Verified 10/12/20 09:) Other zolpidem tartrate [From Ambien] Allergy (Verified 10/12/20 09:) Unknown metformin Adverse Reaction (Mild, Verified 10/12/20 09:) Nausea doxycycline Adverse Reaction (Verified 10/12/20 09:) Unknown morphine Allergy (Severe, Uncoded 10/12/20 09:01) Swelling Review of Systems General: Denies: Chills, Fever, Sweats Eyes: Denies: Visual changes - bilaterally, Diplopia ENT: Denies: Rhinorrhea, Sore throat Cardiovascular: Denies: Chest pain, Palpitations Respiratory: Denies: Dyspnea, Cough, Dyspnea on exertion Gastrointestinal: Reports: Abdominal pain, Nausea, Vomiting. Denies: Diarrhea, Constipation, Melena, Hematochezia Genitourinary: Denies: Dysuria, Hematuria, Frequency Musculoskeletal: Denies: Back pain, Extremity Pain Skin: Denies: Rash, Wounds Neurological: Denies: Headache, Weakness, Numbness <Og Cardenas - Last Filed: 10/12/20 14:18> Physical Exam Vital Signs/Narrative: Vital Signs Temp Pulse Resp BP Pulse Ox 10/12/20 08:59 97.6 F L 89 18 120/62 100 Inital Vital Signs reviewed: Yes General: Well nourished, Well developed, No Acute Distress Head: Normocephalic, Atraumatic Eyes: Perrl, EOMI ENT: Moist mucous membranes, No rhinorrhea Neck: Supple, Nontender Cardiovascular: Regular rate, Regular rhythm, No murmurs Respiratory: No distress, CTA bilaterally, Chest nontender Abdomen: Normal bowel sounds, Hypoactive bowel sounds, - - Abdominal distention with tympany. Back: Nontender, Normal Inspection Extremities: Nontender, No edema Skin: Normal color, No rash Neurological: Alert, Oriented x3, Cranial nerves II-XII grossly intact, Normal Strength, Normal Sensation Psychological: Normal affect, Normal Mood <Og Cardenas - Last Filed: 10/12/20 14:18> Vital Signs/Narrative: Vital Signs Temp Pulse Resp BP Pulse Ox 10/12/20 14:31 98.4 F 96 16 140/74 H 96 10/12/20 13:20 103 H 16 99 <Holden Navarro - Last Filed: 10/12/20 16:18> Diagnostic/Tx/Re-eval Clinical Impression(s) from Imaging Studies Abdomen/Pelvis CT 10/12/20 09:14 IMPRESSION: 1. Suspicious partial distal small bowel obstruction with a zone of transition located in the right upper quadrant of the abdomen. This may be due to post operative adhesion. 2. Postoperative fluid in the right hepatic lobe surgical site and abnormal hypodense area behind the surgical clips in the right lower hepatic lobe. This hypodense area is uncertain for mass. 3. Small ascites along the paracolic gutters. 4. Partial atelectases with air bronchograms in the right posterior lung base and small right posterior pleural fluid. Superimposed pneumonia is worrisome. 5. No other additional findings or changes when compared to 02/12/2017. Electronically Signed: Rome Willson MD at 12:28 EST , Service support , Chest X-Ray 10/12/20 12:37 IMPRESSION: The tip of the nasogastric tube is in the body of the stomach. Increased markings are seen at the right lung base and lingular segment of the left upper lobe suggestive of early infiltrates. Electronically Signed: Owen Mark, at 14:06 EST , Service support , Laboratory Last Values WBC 4.3 K/mm3 (4.4-11.0) L 10/12/20 09:35 RBC 3.67 M/mm3 (4.6-6.2) L 10/12/20 09:35 Hgb 10.8 g/dL (13.0-16.5) L 10/12/20 09:35 Hct 34.3 % (40-54) L 10/12/20 09:35 MCV 93.5 fL (80-94) 10/12/20 09:35 MCH 29.4 pg (27.0-32.0) 10/12/20 09:35 MCHC 31.5 g/dL (32-36) L 10/12/20 09:35 RDW Std Deviation 48.4 fl (35.1-43.9) H 10/12/20 09:35 RDW Coeff of Roland 14.4 % (11.6-14.6) 10/12/20 09:35 Plt Count 72 K/mm3 (150-450) L 10/12/20 09:35 MPV 11.8 fl (6.2-12.0) 10/12/20 09:35 Immature Gran % (Auto) 0.000 % (0.0-0.9) 10/12/20 09:35 Neut % (Auto) 84.9 % (47-70) H 10/12/20 09:35 Lymph % (Auto) 6.7 % (19-41) L 10/12/20 09:35 Stewart % (Auto) 7.0 % (0-10) 10/12/20 09:35 Eos % (Auto) 1.2 % (0-5) 10/12/20 09:35 Baso % (Auto) 0.2 % (0-1) 10/12/20 09:35 Absolute Neuts (auto) 3.7 X10^3/uL (2.0-7.7) 10/12/20 09:35 Absolute Lymphs (auto) 0.29 X10^3/uL (0.83-4.51) L 10/12/20 09:35 Nucleated RBC % 0 % (0-5) 10/12/20 09:35 Diff Path Review Reviewed 10/12/20 09:35 Sodium 140 mmol/L (136-145) 10/12/20 09:35 Potassium 3.8 mmol/L (3.5-5.1) 10/12/20 09:35 Chloride 106 mmol/L (98-107) 10/12/20 09:35 Carbon Dioxide 29.0 mmol/L (21.0-32.0) 10/12/20 09:35 Anion Gap 5 (5-15) 10/12/20 09:35 BUN 10 mg/dL (7-18) 10/12/20 09:35 Creatinine 0.62 mg/dL (0.70-1.30) L 10/12/20 09:35 Estim Creat Clear Calc 118.62 ml/min 10/12/20 09:35 Est GFR (MDRD) Af Amer 172 mL/min (>60) 10/12/20 09:35 Est GFR (MDRD) Non-Af 142 mL/min (>60) 10/12/20 09:35 BUN/Creatinine Ratio 16.2 RATIO (10-20) 10/12/20 09:35 Glucose 183 mg/dL (74-106) H 10/12/20 09:35 Lactic Acid 1.4 mmol/L (0.4-1.9) 10/12/20 09:35 Lactic Acid Cancelled 10/12/20 09:35 Calcium 8.4 mg/dL (8.5-10.1) L 10/12/20 09:35 Total Bilirubin 0.70 mg/dL (0.20-1.00) 10/12/20 09:35 AST 40 U/L (15-37) H 10/12/20 09:35 ALT 42 U/L (16-61) 10/12/20 09:35 Alkaline Phosphatase 116 U/L (45-117) 10/12/20 09:35 Total Protein 7.1 g/dL (6.4-8.2) 10/12/20 09:35 Albumin 3.1 g/dL (3.2-5.0) L 10/12/20 09:35 Globulin 4.0 g/dL (2.2-4.2) 10/12/20 09:35 Albumin/Globulin Ratio 0.8 RATIO (0.9-2.4) L 10/12/20 09:35 Lipase 67 U/L (73-393) L 10/12/20 09:35 Carbamazepine 11.7 ug/mL (4.0-12.0) 10/12/20 09:35 - Medical Decision Making An IV was established and the patient received pain and nausea medication. He also received supplemental IV fluids. Basic labs were obtained and a CT of the abdomen pelvis with oral and IV contrast ordered. This is worrisome for acute small bowel obstruction due to adhesions near the liver. CT was concerning for possible pneumonia at the base. Ever he does not have any shortness of breath or chest pain or cough or fever or hypoxia. Rapid Covid is negative. Patient received lidocaine aerosol NG tube was placed. I am awaiting surgery's call back. <Og Cardenas - Last Filed: 10/12/20 14:18> - Medical Decision Making Patient signed out to me at 1500 hrs. for follow-up on consult from general surgery (Dr. Harper). She did evaluate the patient in the ED and felt that the patient was comfortable with NG tube and did not require emergent surgery. Commended that patient be into internal medicine. She did have concern is could possibly be new cancer given the previous diagnosis. She will be on consult. Impression: 1. Small bowel obstruction 2. History of colon cancer <Holden Navarro - Last Filed: 10/12/20 16:18> ED Disposition <Og Cardenas - Last Filed: 10/12/20 14:18> <Holden Navarro - Last Filed: 10/12/20 16:18> - Plan for ED Patient: Diagnosis: Colon cancer, Small bowel obstruction
[2020-10-12] MEDS: 0.9% Normal Saline 1,000 ML 125 ML IV ×2 (09:42→17:03)
[2020-10-12] MEDS: HYDROmorphone 0.5 MG/0.5 ML SYRINGE IV ×2 (09:43→12:37)
[2020-10-12] MEDS: Ondansetron 4 MG/2 ML Vial IV ×2 (09:43→22:09)
[2020-10-12 09:51] LABS: Absolute Lymphocyte Count 0.29 X10^3/uL (0.83-4.51); Absolute Neutrophil Count 3.7 X10^3/uL (2.0-7.7); Basophil# 0.01 X10^3/uL; Basophil% 0.2 % (0-1); Eosinophil# 0.05 X10^3/uL; Eosinophils% 1.2 % (0-5); Hematocrit 34.3 % (40-54); Hemoglobin 10.8 g/dL (13.0-16.5); Lymphocyte # 0.29 X10^3/ul (4.0); Lymphocyte % 6.7 % (19-41); Mean Corp Hgb Conc 31.5 g/dL (32-36); Mean Corpuscular Hgb 29.4 pg (27.0-32.0); Mean Corpuscular Volume 93.5 fL (80-94); Mean Platelet Vol. 11.8 fl (6.2-12.0); NRBC Flagged by Analyzer 0 % (0-5); Neutrophil # 3.66 X10^3/uL (2.7-7.7); Neutrophil % 84.9 % (47-70); POSITIVE COUNT YES; POSITIVE DIFFERENTIAL YES; Platelet Count 72 K/mm3 (150-450); RBC Distribution Width CV 14.4 % (11.6-14.6); RBC Distribution Width SD 48.4 fl (35.1-43.9); Red Blood Count 3.67 M/mm3 (4.6-6.2); White Blood Count 4.3 K/mm3 (4.4-11.0)
[2020-10-12 09:52] LABS: Differential Indicated SCAN CRITERIA MET
[2020-10-12 09:59] LABS: ALB/GLOB Ratio 0.8 RATIO (0.9-2.4); AST(SGOT) 40 U/L (15-37); Alanine Aminotransfer ALT/SGPT 42 U/L (16-61); Albumin, Serum 3.1 g/dL (3.2-5.0); Alkaline Phosphatase 116 U/L (45-117); Anion Gap 5 (5-15); BUN 10 mg/dL (7-18); BUN/Creat Ratio 16.2 RATIO (10-20); Calcium,Total 8.4 mg/dL (8.5-10.1); Chloride 106 mmol/L (98-107); Creatinine, Serum 0.62 mg/dL (0.70-1.30); EST Glomerular Filtration Rate 142 mL/min (>60); Est Glom Filt Rate - Afr Amer 172 mL/min (>60); Estimated Creatinine Clearance 118.62 ml/min; Glucose 183 mg/dL (74-106); Lipase 67 U/L (73-393); Potassium 3.8 mmol/L (3.5-5.1); Protein, Total 7.1 g/dL (6.4-8.2); Sodium Level 140 mmol/L (136-145)
[2020-10-12 10:19] LABS: Carbamazepine (Tegretol) 11.7 ug/mL (4.0-12.0)
[2020-10-12 10:29] LABS: Lactic Acid 1.4 mmol/L (0.4-1.9)
--- NOTE | 2020-10-12 12:37 | RAD_ITS ---
STUDY: X-RAY CHEST REASON FOR EXAM: Male, 55 years old. COUGH, NG PLACEMENT TECHNIQUE: Single AP portable view of the chest. COMPARISON: Comparison is made with prior study dated 01/17/2020. FINDINGS: A nasogastric tube has been placed. The tip is in the midportion of the body of the stomach. A left-sided Port-A-Cath is seen with the tip at the junction of the superior vena cava and right atrium. There is evidence of a patchy atelectasis and/or infiltrate in the medial aspect of the right lung base as well as in the lingular segment of the left upper lobe. There is no demonstrated pleural abnormality. Normal size heart. Normal mediastinum and ruby. Normal visualized pulmonary arteries. There is atherosclerotic tortuosity of the aortic arch and descending thoracic aorta. There are diffuse degenerative changes of the visualized thoracic spine. Normal visualized ribs, clavicles, and shoulders. Surgical clips are seen in the right upper quadrant. RAD/Chest 1 View (Portable) IMPRESSION: The tip of the nasogastric tube is in the body of the stomach. Increased markings are seen at the right lung base and lingular segment of the left upper lobe suggestive of early infiltrates. Electronically Signed: Owen Mark, at 14:06 EST , Service support ,
[2020-10-12 13:07] LABS: Pathologist Review Reviewed
[2020-10-12] MEDS: Lidocaine 4% 5 ML Ampul 2 ML INHALATION (13:15)
[2020-10-12] MEDS: Oxymetazoline 0.05% 1 SPRAY SPRAY.BTL 2 SPRAY NASAL (13:19)
[2020-10-12] MEDS: HYDROmorphone 1 MG/ML Syringe IV ×3 (15:10→22:09)
--- NOTE | 2020-10-12 15:38 | HP.PCM_ITS ---
History of Present Illness Date of Admission: 10/12/20 Chief Complaint: nausea and vomiting The patient is a 55 year old M with a past medical history which includes metastatic colon cancer with mets to the liver and lung. This was diagnosed back in 2013 and he has had laparoscopic right hemicolectomy. He has been having chemotherapy every 2 weeks and his last session was 3 weeks ago but was canceled last week on account of thrombocytopenia. He was admitted with a complaint of abdominal distention and nausea as well as vomiting symptoms which began during the night prior to admission. He had a bowel movement on the day prior to admission. Review of symptoms otherwise negative. The ED, vitals show temperature of 98.4 Fahrenheit with blood pressure 140/74, pulse rate of 96 and respiratory of 16. Pulse ox was 96% on room air. Chemistry showed creatinine of 0.62 but was otherwise unremarkable. Lipase was 67. CBC showed WBC of 4.3 with hemoglobin of 10.8 and platelets of 72. Of the abdomen and pelvis show suspicious partial distal small bowel obstruction with zone of transition located in the right upper quadrant of the abdomen as well as partial atelectasis with air bronchograms in the right posterior lung base and small right posterior pleural fluid which was worrisome for superimposed pneumonia. He is being admitted to be managed for small bowel obstruction [] Past Medical History Past Medical History (Chronic Problems): Chronic Problems Neurogenic syncope (Chronic) DM type 2 (diabetes mellitus, type 2) (Chronic) Colon cancer (Chronic) Bipolar disorder (Chronic) Hyperlipidemia (Chronic) Allergies amoxicillin trihydrate [From Augmentin] Allergy (Intermediate, Verified 10/12/20 09:01) Swelling eszopiclone [From Lunesta] Allergy (Mild, Verified 10/12/20 09:01) Rash tetracycline [Tetracycline] Allergy (Unknown, Verified 10/12/20 09:01) Unknown aspirin [From Fiorinal] Allergy (Verified 10/12/20 09:01) Unknown butalbital [From Fiorinal] Allergy (Verified 10/12/20 09:) Unknown caffeine [From Fiorinal] Allergy (Verified 10/12/20 09:01) Unknown coconut Allergy (Verified 10/12/20 09:01) Anaphylaxis coconut oil Allergy (Verified 10/12/20 09:01) Anaphylaxis divalproex sodium [From Depakote] Allergy (Verified 10/12/20 09:01) Unknown fludrocortisone acetate [From Florinef] Allergy (Verified 10/12/20 09:01) Unknown ketorolac tromethamine [From Toradol] Allergy (Verified 10/12/20 09:) Unknown meperidine HCl [From Demerol] Allergy (Verified 10/12/20 09:01) Swelling Penicillins Allergy (Verified 10/12/20 09:01) Swelling potassium clavulanate [From Augmentin] Allergy (Verified 10/12/20 09:01) Swelling sitagliptin phosphate [From Januvia] Allergy (Verified 10/12/20 09:01) Other zolpidem tartrate [From Ambien] Allergy (Verified 10/12/20 09:) Unknown metformin Adverse Reaction (Mild, Verified 10/12/20 09:) Nausea doxycycline Adverse Reaction (Verified 10/12/20 09:) Unknown morphine Allergy (Severe, Uncoded 10/12/20 09:) Swelling Home Medications: Ambulatory Orders Medication Instructions Recorded Carbamazepine [Tegretol] 600 mg PO QHS 10/29/13 Carbamazepine [Tegretol] 400 mg PO BREAKFAST 09/10/14 Pregabalin [Lyrica] 150 mg PO BID 09/11/14 Insulin Aspart [Novolog Flexpen] 18 units SC TIDCM 01/27/15 Lorazepam [Ativan] 2 mg PO Q8H PRN PRN 05/08/15 Aspirin [Aspirin, Baby] 81 mg PO DAILY@0800 #30 tab.chew 05/09/15 Omeprazole [Prilosec] 40 mg PO DAILY 12/05/16 Ondansetron HCl [Zofran] 8 mg PO Q8H PRN PRN 12/05/16 Tamsulosin HCl [Flomax] 0.4 mg PO DAILY 12/05/16 Acetaminophen [Tylenol] 650 mg PO TID PRN 02/20/17 Cyclobenzaprine HCl 10 mg PO PRN PRN 01/08/18 Insulin Degludec [Tresiba 80 unit SQ QHS 01/08/18 Flextouch U-100] Metoclopramide [Reglan] 10 mg PO PRN PRN 01/08/18 Multivitamins,Therapeutic 1 tablet PO DAILY 01/08/18 [Multivitamin] Pyridoxine HCl (Vitamin B6) [B-6] 200 mg PO DAILY 01/08/18 Dicyclomine HCl [Bentyl] 20 mg PO TIDAC #20 cap 04/03/19 Ondansetron [Zofran Odt] 4 mg PO Q8H PRN PRN #10 tab 04/03/19 Surgical History: - - Bowel resection, appendectomy, port placement, right shoulder surgery ?3, right knee surgery ?1. Psychiatric History: Bipolar, Depression, Prior suicide attempt - 1 year ago suicide attempt, EtOH. Lives: Spouse/ Significant Other Smoking Status: Former smoker Drugs: None - *Family History Paternal History Items: No pertinent history, - - No family history of colonic cancer in first-degree family relative. Maternal History Items: No pertinent history Review of Systems Constitutional: Denies: Chills, Fever, Malaise, Weakness, Weight Change Eyes: Denies: Blurred vision HEENT: Denies: Head Aches, Sinus Congestion, Sinus Drainage Cardiovascular: Denies: Chest Pain, Palpitations Respiratory: Denies: Cough, Shortness of Breath, Shortness of breath at rest, Shortness of breath upon exertion, Sputum production Gastrointestinal: Reports: Abdominal Pain, Nausea, Vomiting Genitourinary: Denies: Dysuria Musculoskeletal: Denies: Joint Pain, Joint Tenderness Skin: Denies: Rash, Wounds Neurological: Denies: Numbness, Tingling, Focal weakness Psychiatric: Denies: Anxiety, Depression, Homicidal Ideations, Suicidal Ideations Hematologic/ Lymphatic: Denies: Easy Bruising, Easy Bleeding VTE Information - Inpt Only VTE Present on Admission: No VTE Pharm Prophylaxis ordered?: Yes Patient Problems: Active and Suspected Problems Small bowel obstruction (Acute) - Physical Exam Vitals/I&O's: Vital Signs Temp Pulse Resp BP Pulse Ox 98.4 F 96 16 140/74 H 96 10/12/20 14:31 10/12/20 14:31 10/12/20 14:31 10/12/20 14:31 10/12/20 14:31 Oxygen Delivery Method Room Air Weight: 177 lb Body Mass Index (BMI) 28.5 Finger Stick Blood Glucose 338 Intake and Output for Last 24 Hours 10/10/20 10/11/20 10/12/20 23:59 23:59 23:59 Intake Total 1000 / 1000 Balance 1000 / 1000 General: Alert, Oriented x3, Cooperative, No apparent distress HEENT: Atraumatic, PERRLA, EOMI, Normocephalic Oral: Moist Mucosa Neck: Supple, No JVD, Negative Carotid Bruits Lungs: Clear to auscultation, Normal air movement, No rhonchi, No wheeze, No rales Cardiovascular: Regular rate, Regular Rhythm, Normal S1, Normal S2, No murmurs Abdomen: Hypoactive Bowel Sounds, - - abdomen distended, tympanitic to percussion Extremities: No clubbing, No cyanosis, No edema, Capillary Refill Less than 3 Seconds Skin: No rashes, No breakdown Musculoskeletal: No Tenderness to Palpation of Joints or Extremities Lymphatic: No Cervical, Supraclavicular, or Inguinal Adenopathy Neurological: Cranial nerves II-XII grossly intact, Neuro grossly intact, Motor Exam 5/5 strength throughout Psych/Mental Status: Normal Affect, Appropriate, Alert and oriented to time, place, person, mood and affect Microbiology Past 72 Hours 10/12/20 13:15 Mucosa - Nose SARS-CoV-2 Antigen (Rapid) - Final Laboratory Results 10/12/20 09:35: WBC 4.3 L, RBC 3.67 L, Hgb 10.8 L, Hct 34.3 L, MCV 93.5, MCH 29.4, MCHC 31.5 L, RDW Std Deviation 48.4 H, RDW Coeff of Roland 14.4, Plt Count 72 L, MPV 11.8, Immature Gran % (Auto) 0.000, Neut % (Auto) 84.9 H, Lymph % (Auto) 6.7 L, Isabella % (Auto) 7.0, Eos % (Auto) 1.2, Baso % (Auto) 0.2, Absolute Neuts (auto) 3.7, Absolute Lymphs (auto) 0.29 L, Nucleated RBC % 0, Diff Path Review Reviewed 10/12/20 09:35: Sodium 140, Potassium 3.8, Chloride 106, Carbon Dioxide 29.0, Anion Gap 5, BUN 10, Creatinine 0.62 L, Estim Creat Clear Calc 118.62, Est GFR (MDRD) Af Amer 172, Est GFR (MDRD) Non-Af 142, BUN/Creatinine Ratio 16.2, Glucose 183 H, Calcium 8.4 L, Total Bilirubin 0.70, AST 40 H, ALT 42, Alkaline Phosphatase 116, Total Protein 7.1, Albumin 3.1 L, Globulin 4.0, Albumin/Globulin Ratio 0.8 L, Lipase 67 L 10/12/20 09:35: Lactic Acid Cancelled 10/12/20 09:35: Carbamazepine 11.7 10/12/20 09:35: Lactic Acid 1.4 Diagnostic Data Abdomen/Pelvis CT 10/12/20 09:14 IMPRESSION: 1. Suspicious partial distal small bowel obstruction with a zone of transition located in the right upper quadrant of the abdomen. This may be due to post operative adhesion. 2. Postoperative fluid in the right hepatic lobe surgical site and abnormal hypodense area behind the surgical clips in the right lower hepatic lobe. This hypodense area is uncertain for mass. 3. Small ascites along the paracolic gutters. 4. Partial atelectases with air bronchograms in the right posterior lung base and small right posterior pleural fluid. Superimposed pneumonia is worrisome. 5. No other additional findings or changes when compared to 02/12/2017. Electronically Signed: Rome Willson MD at 12:28 EST , Service support , Chest X-Ray 10/12/20 12:37 IMPRESSION: The tip of the nasogastric tube is in the body of the stomach. Increased markings are seen at the right lung base and lingular segment of the left upper lobe suggestive of early infiltrates. Electronically Signed: Owen Mark, at 14:06 EST , Service support , Current Medications Sodium Chloride () 1,000 mls @ 125 mls/hr IV .Q8H ROSA Last Infusion: 10/12/20 12:16 Dose: Infused Documented by: Assessment/Plan All Active Problems Small bowel obstruction (Acute) 68-year-old male admitted with a complaint of abdominal distention and nausea and vomiting. #Small bowel obstruction * Mid to MedSurg * CT of the abdomen showed suspicious partial small bowel bowel distal obstruction with area of transition occurring in the upper right quadrant which could be due to postoperative adhesions. * He does have a history of colon cancer s/p hemicolectomy. * consult general surgery * keep NPO * hydrate with IVF * NG tube inserted in ED * * #history of metastatic colon cancer * Metastasis to the liver and lung. Undergoing chemotherapy every 2 weeks but last chemotherapy was canceled last week on account of thrombocytopenia. * To follow-up with oncology on outpatient basis. * #Type 2 diabetes mellitus: Hold Tresiba. Insulin Sliding scale. Accuchecks q6hrly #Tach history of bipolar disorder: On Tegretol. #BPH: On Flomax Due to prophylaxis: Lovenox CODE STATUS: Full code Inpatient E&M: 27673 Init Hosp L3 Procedures: 93192 Advncd Care Plan 30 Min
--- NOTE | 2020-10-12 15:45 | PCM.CONS.GEN ---
Reason for Consult Date of Consultation: 10/12/20 History of Present Illness: The patient is a 55 year old M presented to the ER due to diffuse abdominal pain which started yesterday. Patient states he was having some abdominal pain on and off for last couple weeks. Patient complains of bloating since yesterday which has been worse patient states he has been having bowel movements as well as flatus even today. Patient did have some nausea and vomiting. NG was placed in the ER which got 400 cc out. Patient currently denies any nausea or vomiting with the NG placed, still has abdominal bloating and abdominal pain mostly on the right side. CT of the abdomen pelvis does show small bowel obstruction with a transition area in the right upper quadrant is also small amount of ascites in the pericolic gutters. Patient last had chemotherapy due to metastatic colon cancer to the liver, lungs, and enlarging retroperitoneal lymph nodes [address] Sanchez. 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 Patient also underwent liver resections due to liver mets. Patient's last abdominal surgery was in April 2019 at [facility] for recurrent liver metastasis and colorectal cancer. Patient had a laparoscopic central hepatectomy laparoscopic liver ultrasound and an extensive lap for scopic lysis of adhesions which per the patient and his took 3 hours. Patient's more recent CAT scans from July as well as September in [facility] does state that there is some enlarging retroperitoneal nodes and one actually questions carcinomatosis. Patient has been having an elevated CEA most recently is 24 but has ranged from 14-24 since July 2020. Patient would prefer to stay here not be transferred up to [facility]. Past Medical History Past Medical History (Chronic Problems): Chronic Problems Neurogenic syncope (Chronic) DM type 2 (diabetes mellitus, type 2) (Chronic) Colon cancer (Chronic) Bipolar disorder (Chronic) Hyperlipidemia (Chronic) Allergies amoxicillin trihydrate [From Augmentin] Allergy (Intermediate, Verified 10/12/20 09:01) Swelling eszopiclone [From Lunesta] Allergy (Mild, Verified 10/12/20 09:01) Rash tetracycline [Tetracycline] Allergy (Unknown, Verified 10/12/20 09:01) Unknown aspirin [From Fiorinal] Allergy (Verified 10/12/20 09:01) Unknown butalbital [From Fiorinal] Allergy (Verified 10/12/20 09:01) Unknown caffeine [From Fiorinal] Allergy (Verified 10/12/20 09:01) Unknown coconut Allergy (Verified 10/12/20 09:) Anaphylaxis coconut oil Allergy (Verified 10/12/20 09:) Anaphylaxis divalproex sodium [From Depakote] Allergy (Verified 10/12/20 09:01) Unknown fludrocortisone acetate [From Florinef] Allergy (Verified 10/12/20 09:) Unknown ketorolac tromethamine [From Toradol] Allergy (Verified 10/12/20 09:) Unknown meperidine HCl [From Demerol] Allergy (Verified 10/12/20 09:) Swelling Penicillins Allergy (Verified 10/12/20 09:) Swelling potassium clavulanate [From Augmentin] Allergy (Verified 10/12/20 09:) Swelling sitagliptin phosphate [From Januvia] Allergy (Verified 10/12/20 09:) Other zolpidem tartrate [From Ambien] Allergy (Verified 10/12/20 09:) Unknown metformin Adverse Reaction (Mild, Verified 10/12/20 09:) Nausea doxycycline Adverse Reaction (Verified 10/12/20 09:) Unknown morphine Allergy (Severe, Uncoded 10/12/20 09:) Swelling Home Medications: Ambulatory Orders Medication Instructions Recorded Carbamazepine [Tegretol] 600 mg PO QHS 10/29/13 Carbamazepine [Tegretol] 400 mg PO BREAKFAST 09/10/14 Pregabalin [Lyrica] 150 mg PO BID 09/11/14 Insulin Aspart [Novolog Flexpen] 18 units SC TIDCM 01/27/15 Lorazepam [Ativan] 2 mg PO Q8H PRN PRN 05/08/15 Omeprazole [Prilosec] 40 mg PO DAILY 12/05/16 Ondansetron HCl [Zofran] 8 mg PO Q8H PRN PRN 12/05/16 Tamsulosin HCl [Flomax] 0.4 mg PO QHS 12/05/16 Acetaminophen [Tylenol] 650 mg PO TID PRN 02/20/17 Cyclobenzaprine HCl 10 mg PO PRN PRN 01/08/18 Insulin Degludec [Tresiba 80 unit SQ QHS 01/08/18 Flextouch U-100] Metoclopramide [Reglan] 10 mg PO PRN PRN 01/08/18 Multivitamins,Therapeutic 1 tablet PO DAILY 01/08/18 [Multivitamin] Pyridoxine HCl (Vitamin B6) [B-6] 200 mg PO DAILY 01/08/18 Aspirin [Aspirin, Baby] 81 mg PO DAILY@0800 10/12/20 Dicyclomine HCl [Bentyl] 20 mg PO TIDAC 10/12/20 Furosemide 10 mg PO DAILY PRN PRN 10/12/20 Hydrocodone/Acetaminophen [[place] 1 - 2 ea PO Q6H PRN PRN 10/12/20 10-325 Tablet] Hydromorphone HCl [Dilaudid] 2 mg PO Q4H PRN PRN 10/12/20 Potassium Chloride 10 meq PO DAILY 10/12/20 Surgical History: - - right hemicolectomy for transverse colon cancer, Liver resections, appendectomy, port placement, right shoulder surgery ?3, right knee surgery ?1. Psychiatric History: Bipolar, Depression, Prior suicide attempt - 1 year ago suicide attempt, EtOH. Lives: Spouse/ Significant Other Smoking Status: Former smoker Drugs: None - *Family History Paternal History Items: No pertinent history, - - No family history of colonic cancer in first-degree family relative. Maternal History Items: No pertinent history Review of Systems Constitutional: Reports: Anorexia. Denies: Fever Eyes: Denies: Blurred vision HEENT: Denies: Difficulty Swallowing Cardiovascular: Denies: Chest Pain Respiratory: Denies: Cough Gastrointestinal: Reports: Abdominal Pain, Nausea, Vomiting. Denies: Constipation Genitourinary: Denies: Dysuria Neurological: Denies: Balance problems Psychiatric: Denies: Depression Hematologic/ Lymphatic: Reports: Easy Bleeding Patient Problems: Active and Suspected Problems Small bowel obstruction (Acute) - Physical Exam Vitals/I&O's: Vital Signs Temp Pulse Resp BP Pulse Ox 98.4 F 96 16 140/74 H 96 10/12/20 14:31 10/12/20 14:31 10/12/20 14:31 10/12/20 14:31 10/12/20 14:31 Oxygen Delivery Method Room Air Weight: 177 lb Body Mass Index (BMI) 28.5 Finger Stick Blood Glucose 338 Intake and Output for Last 24 Hours 10/10/20 10/11/20 10/12/20 23:59 23:59 23:59 Intake Total 1000 / 1000 Balance 1000 / 1000 General: Alert, Oriented x3, Cooperative, No apparent distress HEENT: - - NG in place Lungs: Normal air movement Cardiovascular: Regular rate Abdomen: Soft, Distended, Tender - Right upper abdomen, right lower abdomen, left lower abdomen?no guarding, rebound. Extremities: No clubbing, No cyanosis, No edema Neurological: Cranial nerves II-XII grossly intact Psych/Mental Status: Normal Affect Microbiology Past 72 Hours 10/12/20 13:15 Mucosa - Nose SARS-CoV-2 Antigen (Rapid) - Final Laboratory Results 10/12/20 09:35: WBC 4.3 L, RBC 3.67 L, Hgb 10.8 L, Hct 34.3 L, MCV 93.5, MCH 29.4, MCHC 31.5 L, RDW Std Deviation 48.4 H, RDW Coeff of Roland 14.4, Plt Count 72 L, MPV 11.8, Immature Gran % (Auto) 0.000, Neut % (Auto) 84.9 H, Lymph % (Auto) 6.7 L, [place] % (Auto) 7.0, Eos % (Auto) 1.2, Baso % (Auto) 0.2, Absolute Neuts (auto) 3.7, Absolute Lymphs (auto) 0.29 L, Nucleated RBC % 0, Diff Path Review Reviewed 10/12/20 09:35: Sodium 140, Potassium 3.8, Chloride 106, Carbon Dioxide 29.0, Anion Gap 5, BUN 10, Creatinine 0.62 L, Estim Creat Clear Calc 118.62, Est GFR (MDRD) Af Amer 172, Est GFR (MDRD) Non-Af 142, BUN/Creatinine Ratio 16.2, Glucose 183 H, Calcium 8.4 L, Total Bilirubin 0.70, AST 40 H, ALT 42, Alkaline Phosphatase 116, Total Protein 7.1, Albumin 3.1 L, Globulin 4.0, Albumin/Globulin Ratio 0.8 L, Lipase 67 L 10/12/20 09:35: Lactic Acid Cancelled 10/12/20 09:35: Carbamazepine 11.7 10/12/20 09:35: Lactic Acid 1.4 Current Medications Sodium Chloride () 1,000 mls @ 125 mls/hr IV .Q8H ROSA Last Infusion: 11/17/20 12:16 Dose: Infused Documented by: Assessment/Plan All Active Problems Small bowel obstruction (Acute) 55-year-old male with metastatic colon cancer to the liver, lungs, retroperitoneal lymph nodes status post colon resection and liver resections, history of thrombocytopenia current platelets are 72 Discussed with patient would not plan to do surgery here however patient did not want to be transferred to [facility] we will try to treat conservatively with NG and small bowel follow-through to see if the Gastrografin help resolve the small bowel obstruction. If the bowel obstruction does not resolve patient understands that if he would want possible surgery he would need to be transferred. Patient does state he is still passing gas and having bowel function. NG was placed in the ER we will continue and keep n.p.o. with IV fluids okay for meds. It could possibly be due to adhesions or there is a possibility of new disease causing this as well as CAT scans have mentioned enlarging nodes and patient has had an elevated/rising CEA. Patient states that his last surgery they had 3 hours of lysis of adhesions prior to doing the surgery and that was in April 2019 at [facility] for the liver resection. Razia Harper M.D. Pager: [phone] [facility] [address] [place] [address], Outpatient [place], [address] [place] [address] Office: [phone] Inpatient E&M: 93084 Init Hosp L2
--- NOTE | 2020-10-12 16:22 | ED.RN ---
approx 500 ml in NG canister
[2020-10-12] MEDS: 0.9% Saline Lock 10 ML Syringe IV (17:04)
[2020-10-12] MEDS: carBAMazepine 200 MG Tablet 600 MG PO (22:13)
[2020-10-13] VITALS (13 sets, daily range): BP systolic 121–146; BP diastolic 67–82; PULSE 85–95; RESP 16–18; TEMP 36.6–37; O2SAT 93–95
[2020-10-13] MEDS: 0.9% Normal Saline 1,000 ML 125 ML IV ×2 (01:03→08:50)
[2020-10-13] MEDS: HYDROmorphone 1 MG/ML Syringe IV ×5 (03:46→23:17)
[2020-10-13 06:05] LABS: Bedside Glucose 131 mg/dL (70-110)
[2020-10-13 06:40] LABS: Bedside Glucose 126 mg/dL (70-110)
--- NOTE | 2020-10-13 06:56 | PN.SURG_ITS ---
Patient Problems: Active and Suspected Problems Small bowel obstruction (Acute) Subjective: Patient still admits to a small amount of flatus, did have some nausea and vomiting x3 per patient with only a small amount of emesis, NG tube has about 400 in a container, patient states his abdominal pain is about the same. - Physical Exam Vitals/I&O's: Vital Signs Temp Pulse Resp BP Pulse Ox 98.6 F 95 16 137/74 H 94 10/13/20 03:20 10/13/20 05:57 10/13/20 03:20 10/13/20 03:20 10/13/20 03:20 Oxygen Delivery Method Room Air Weight: 179 lb 4.8 oz Body Mass Index (BMI) 28.9 Finger Stick Blood Glucose 338 Intake and Output for Last 24 Hours 10/11/20 10/12/20 10/13/20 23:59 23:59 23:59 Intake Total 1060 / 1060 1210 / 1210 Output Total 450 / 450 Balance 1060 / 1060 760 / 760 General: Alert, Oriented x3, Cooperative HEENT: Atraumatic Lungs: Normal air movement Cardiovascular: Regular rate Abdomen: Soft, Distended, Tender - Mostly on the right side, no peritoneal signs Extremities: No clubbing, No cyanosis, No edema Microbiology Past 72 Hours 10/12/20 13:15 Mucosa - Nose SARS-CoV-2 Antigen (Rapid) - Final Laboratory Results 10/12/20 09:35: WBC 4.3 L, RBC 3.67 L, Hgb 10.8 L, Hct 34.3 L, MCV 93.5, MCH 29.4, MCHC 31.5 L, RDW Std Deviation 48.4 H, RDW Coeff of Roland 14.4, Plt Count 72 L, MPV 11.8, Immature Gran % (Auto) 0.000, Neut % (Auto) 84.9 H, Lymph % (Auto) 6.7 L, [place] % (Auto) 7.0, Eos % (Auto) 1.2, Baso % (Auto) 0.2, Absolute Neuts (auto) 3.7, Absolute Lymphs (auto) 0.29 L, Nucleated RBC % 0, Diff Path Review Reviewed 10/12/20 09:35: Sodium 140, Potassium 3.8, Chloride 106, Carbon Dioxide 29.0, Anion Gap 5, BUN 10, Creatinine 0.62 L, Estim Creat Clear Calc 118.62, Est GFR (MDRD) Af Amer 172, Est GFR (MDRD) Non-Af 142, BUN/Creatinine Ratio 16.2, Glucose 183 H, Calcium 8.4 L, Total Bilirubin 0.70, AST 40 H, ALT 42, Alkaline Phosphatase 116, Total Protein 7.1, Albumin 3.1 L, Globulin 4.0, Albumin/Globulin Ratio 0.8 L, Lipase 67 L 10/12/20 09:35: Lactic Acid Cancelled 10/12/20 09:35: Carbamazepine 11.7 10/12/20 09:35: Lactic Acid 1.4 10/13/20 00:48: POC Glucose 126 H 10/13/20 05:49: POC Glucose 131 H Current Medications Carbamazepine (Carbamazepine 200 Mg Tablet) 400 mg PO BREAKFAST ROSA Carbamazepine (Carbamazepine 200 Mg Tablet) 600 mg PO QHS ROSA Last Admin: 10/12/20 22:13 Dose: 600 mg Documented by: Enoxaparin Sodium (Enoxaparin 40 Mg/0.4 Ml Syringe) 40 mg SC DAILY ROSA Hydromorphone HCl (Hydromorphone 1 Mg/Ml Syringe) 1 mg IV Q4H PRN PRN PRN Reason: Pain Score 6-10 Last Admin: 10/13/20 03:46 Dose: 1 mg Documented by: Sodium Chloride () 1,000 mls @ 125 mls/hr IV .Q8H ROSA Last Admin: 10/13/20 01:03 Dose: 125 mls/hr Documented by: Ondansetron HCl (Ondansetron 4 Mg/2 Ml Vial) 4 mg IV Q8H PRN PRN PRN Reason: NAUSEA/VOMITING Last Admin: 10/12/20 22:09 Dose: 4 mg Documented by: Sodium Chloride (0.9% Saline Lock 10 Ml Syringe) 10 - 40 ml IV UD PRN PRN Reason: SALINE FLUSH Last Admin: 10/12/20 17:04 Dose: 10 ml Documented by: Medical Necessity - Tobacco Use Smoking Status: Former smoker Tobacco Use: Cigarettes Assessment/Plan All Active Problems Small bowel obstruction (Acute) 55-year-old male with metastatic colon cancer to the liver, lungs, retroperitoneal lymph nodes status post colon resection and liver resections, history of thrombocytopenia KUB pending for this AM, may do a small bowel follow-through this morning w gastrograffin. Continue NG/IV fluids/n.p.o. Razia Harper M.D. Pager: [phone] [facility] [address] [place] [address], [facility], [address] [place] [address] Office: [phone] Inpatient E&M: 32250 Subs Hosp L1
[2020-10-13] MEDS: Ondansetron 4 MG/2 ML Vial IV ×2 (07:07→14:00)
[2020-10-13 07:48] LABS: Absolute Lymphocyte Count 0.29 X10^3/uL (0.83-4.51); Absolute Neutrophil Count 2.6 X10^3/uL (2.0-7.7); Basophil# 0.01 X10^3/uL; Basophil% 0.3 % (0-1); Differential Indicated SCAN CRITERIA MET; Eosinophil# 0.06 X10^3/uL; Eosinophils% 1.8 % (0-5); Hematocrit 35.7 % (40-54); Lymphocyte # 0.29 X10^3/ul (4.0); Lymphocyte % 8.8 % (19-41); Mean Corp Hgb Conc 30.8 g/dL (32-36); Mean Corpuscular Hgb 29.7 pg (27.0-32.0); Mean Corpuscular Volume 96.5 fL (80-94); Monocyte# 0.37 X10^3/uL; Monocyte% 11.2 % (0-10); NRBC Flagged by Analyzer 0 % (0-5); Neutrophil # 2.57 X10^3/uL (2.7-7.7); Neutrophil % 77.6 % (47-70); POSITIVE COUNT YES; POSITIVE DIFFERENTIAL YES; Platelet Count 67 K/mm3 (150-450); RBC Distribution Width CV 14.5 % (11.6-14.6); RBC Distribution Width SD 50.9 fl (35.1-43.9); White Blood Count 3.3 K/mm3 (4.4-11.0)
--- NOTE | 2020-10-13 08:11 | RAD_ITS ---
STUDY: X-RAY - ABDOMEN/PELVIS REASON FOR EXAM: Male, 55 years old. SBO TECHNIQUE: Single AP view of the abdomen / pelvis. COMPARISON: CT scan 10/12/2020. FINDINGS: Nasogastric tube terminates in the proximal stomach. Contrast is seen in the left upper quadrant bowel loops probably from previous CT scan. No definite dilated loops of bowel are seen. No specific evidence for obstruction. There is no demonstrated free abdominal air. The visualized liver, spleen and kidneys are grossly normal in size and morphology. Normal soft tissue structures. Normal visualized osseous structures. RAD/Abdomen Single View IMPRESSION: No definite acute abnormality. No definite evidence for obstruction. Electronically Signed: Ac Connor MD at 23:55 EST , Service support ,
[2020-10-13 08:23] LABS: Anion Gap 3 (5-15); BUN 13 mg/dL (7-18); BUN/Creat Ratio 25.9 RATIO (10-20); Calcium,Total 8.2 mg/dL (8.5-10.1); Chloride 111 mmol/L (98-107); EST Glomerular Filtration Rate 181 mL/min (>60); Est Glom Filt Rate - Afr Amer 219 mL/min (>60); Estimated Creatinine Clearance 147.09 ml/min; Glucose 124 mg/dL (74-106); Potassium 3.9 mmol/L (3.5-5.1); Sodium Level 141 mmol/L (136-145)
[2020-10-13 08:40] LABS: Differential Comment SCANNED
--- NOTE | 2020-10-13 09:45 | CASEMGMT ---
RN DANA Face to Face with patient for initial transition planning/care coordination assessment. RN CM introduced self and role at [facility]. Patient lying in bed, alert and oriented. Patient willing to participate in assessment and is able to answer all questions appropriately. Care providers, pharmacy, and demographics verified. Patient wishes to discharge home, denies need for home health at this time. Patient states he has no further needs or concerns at this time. CM to follow for discharge planning needs that may arise. PCP: Michael Specialists: Laura Guevara Pharmacy: [facility] Insurance: [employer] Prescription Benefit: yes Living Will/HPOA: yes, Jessika STEINBERG: Living Arrangements: Patient lives with in a 2 story home. Patient states he is independent and able to ambulate stairs. Transportation: self/ DME/HHC: patient states he has shower chair, raised toilet, cane, and walker at home. Disposition Plan: Patient to discharge home with family support and follow-up plans in place. Martha SEAMAN, RN, CM
[2020-10-13] MEDS: Enoxaparin 40 MG/0.4 ML Syringe SC (10:21)
[2020-10-13] MEDS: BENZOCAINE/MENTHOL 1 LOZENGE MUCOUS MEM (10:21)
--- NOTE | 2020-10-13 10:52 | CASEMGMT ---
Addendum entered by Martha Flannery 10/13/20 11:26: KIMBERLY faxed clinicals to Palliative Care Original Note: Social Work Note SW reviewed chart. Pt has history of colon cancer with mets to liver and lung. SW in to speak with pt. SW introduced self and role at [facility]. Pt is alert and orientated x3. Pt states that he is handling cancer diagnosis well. Pt states he was first diagnosed on July 13 2014. Pt then had surgery at [facility] the . Pt was cancer free for 15 months, was then diagnosed with liver mets and had liver surgery. Pt then states he was again cancer free for 15 months and then it came back. Pt states that he had to get a four hour surgery that turned into a ten hour surgery. Pt states that he feels he is handling things well but states it has been stressing out his big time. Pt states that he feels supportive by his family and friends. Pt states that he has a CM through his insurance that calls him about a once a week to check in with him. Pt states that he is also active with [facility]. SW provided support to pt. SW offered to provide pt with additional resources, support groups, information etc and pt denied. Pt denied additional needs or concerns at this time. KIBMERLY placed a call to [facility] and left message that pt has been admitted to [facility]. Martha Flannery FRONT OFFICE JAVA DEVELOPER, SOFTWARE APPLICATIONS SPECIALIST
--- NOTE | 2020-10-13 12:53 | PN_ITS ---
<Doyle Buchanan - Last Filed: 10/13/20 12:53> Patient Problems: Active and Suspected Problems Small bowel obstruction (Acute) Reason for Visit: SBO Subjective: no improvement in pain, distention. nausea improved with NG in place. no fever/chills. some flatus today. Last BM 6 am yesterday morning reported normal. Vitals/I&O's: Vital Signs Temp Pulse Resp BP Pulse Ox 97.8 F 85 18 121/75 H 95 10/13/20 08:10 10/13/20 08:19 10/13/20 08:10 10/13/20 08:10 10/13/20 08:10 Oxygen Delivery Method Room Air Weight: 179 lb 3.773 oz Body Mass Index (BMI) 28.9 Finger Stick Blood Glucose 338 Intake and Output for Last 24 Hours 10/11/20 10/12/20 10/13/20 23:59 23:59 23:59 Intake Total 1060 / 1060 2182.92 / 2182.92 Output Total 450 / 450 Balance 1060 / 1060 1732.92 / 1732.92 General: Alert, Oriented x3, Cooperative HEENT: Atraumatic, PERRLA, EOMI, Normocephalic Neck: Supple, No JVD, Negative Carotid Bruits Lungs: Clear to auscultation, Normal air movement Cardiovascular: Regular rate, No murmurs Abdomen: Soft, Hypoactive Bowel Sounds, Distended, Tender Extremities: No edema, Capillary Refill Less than 3 Seconds Skin: No rashes, No breakdown Musculoskeletal: No Tenderness to Palpation of Joints or Extremities Neurological: Cranial nerves II-XII grossly intact Psych/Mental Status: Normal Affect, Appropriate, Alert and oriented to time, place, person, mood and affect Microbiology Past 72 Hours 10/12/20 13:15 Mucosa - Nose SARS-CoV-2 Antigen (Rapid) - Final Laboratory Results 10/12/20 09:35: Diff Path Review Reviewed 10/13/20 00:48: POC Glucose 126 H 10/13/20 05:49: POC Glucose 131 H 10/13/20 07:34: WBC 3.3 L, RBC 3.70 L, Hgb 11.0 L, Hct 35.7 L, MCV 96.5 H, MCH 29.7, MCHC 30.8 L, RDW Std Deviation 50.9 H, RDW Coeff of Roland 14.5, Plt Count 67 L, MPV 11.0, Immature Gran % (Auto) 0.300, Neut % (Auto) 77.6 H, Lymph % (Auto) 8.8 L, [place] % (Auto) 11.2 H, Eos % (Auto) 1.8, Baso % (Auto) 0.3, Absolute Neuts (auto) 2.6, Absolute Lymphs (auto) 0.29 L, Nucleated RBC % 0, Differential Comment SCANNED, Diff Path Review [facility] 10/13/20 07:34: Sodium 141, Potassium 3.9, Chloride 111 H, Carbon Dioxide 27.0, Anion Gap 3 L, BUN 13, Creatinine 0.50 L, Estim Creat Clear Calc 147.09, Est GFR (MDRD) Af Amer 219, Est GFR (MDRD) Non-Af 181, BUN/Creatinine Ratio 25.9 H, Glucose 124 H, Calcium 8.2 L Current Medications Carbamazepine (Carbamazepine 200 Mg Tablet) 400 mg PO BREAKFAST [facility] Last Admin: 10/13/20 08:50 Dose: Not Given Documented by: Carbamazepine (Carbamazepine 200 Mg Tablet) 600 mg PO QHS [facility] Last Admin: 10/12/20 22:13 Dose: 600 mg Documented by: Enoxaparin Sodium (Enoxaparin 40 Mg/0.4 Ml Syringe) 40 mg SC DAILY [facility] Last Admin: 10/13/20 10:21 Dose: 40 mg Documented by: Hydromorphone HCl (Hydromorphone 1 Mg/Ml Syringe) 1 mg IV Q4H PRN PRN PRN Reason: Pain Score 6-10 Last Admin: 10/13/20 10:20 Dose: 1 mg Documented by: Sodium Chloride () 1,000 mls @ 125 mls/hr IV .Q8H ROSA Last Admin: 10/13/20 08:50 Dose: 125 mls/hr Documented by: Ondansetron HCl (Ondansetron 4 Mg/2 Ml Vial) 4 mg IV Q8H PRN PRN PRN Reason: NAUSEA/VOMITING Last Admin: 10/13/20 07:07 Dose: 4 mg Documented by: Sodium Chloride (0.9% Saline Lock 10 Ml Syringe) 10 - 40 ml IV UD PRN PRN Reason: SALINE FLUSH Last Admin: 10/12/20 17:04 Dose: 10 ml Documented by: Throat Lozenges (Benzocaine/Menthol 1 Lozenge) 1 - 2 lozenge MUCOUS MEM Q2H PRN PRN PRN Reason: SORE THROAT Last Admin: 10/13/20 10:21 Dose: 1 lozenge Documented by: Medical Necessity - Tobacco Use Smoking Status: Former smoker Tobacco Use: Cigarettes Assessment/Plan All Active Problems Small bowel obstruction (Acute) 1. SBO - hx colon cancer with resection, likely adhesions, recurrent cancer also a possibility. Continue NG tube. Dr. Harper following. Covid neg. 2. Colorectal cancer - hx hemicolectomy, also currently undergoing chemotherapy. Known mets to liver/lung. 3. Bipolar disorder - tegretol held. affect normal at this time. consider IM alternative if affect shifts. 4. HLD - orals held 5. DMt2 - Not requiring SSI at this point. NPO. 6. BPH - flomax held. 7. Pancytopenia 2/2 #2 - trend CBC. Avoid heparin products. DVT ppx: stop lovenox, start SCDs. This patient was seen by Doyle Buchanan PA-C under the supervision of Dr. Bernal. <Melo Bernal - Last Filed: 10/13/20 14:19> Reason for Visit: Follow-up for small bowel obstruction most probably from adhesions Objective: Patient has significant surgical history. He had right-sided hemicolectomy in 2013. Subsequently he had to liver tumor resection in 2018 and 2019 for metastatic deposits. Patient has elevated CEA most recently 24, range 14-24 since July 2020. Patient follows [facility] for this cancer colon and oncologist Dr. Sanchez. Patient is also on chemotherapy for metastatic colon cancer to liver, lungs and retroperitoneal lymph last one 3 weeks ago Patient admitted with diffuse abdominal pain for last few weeks but got more severe last 1 day prior to admission. NG was inserted and had about [address] scan shows no obstruction transition point in the right upper quadrant. Patient passed small amount of flatus. But no bowel movement. Feels his abdomen is softer than yesterday. Physical exam General: Alert, Oriented x3, Cooperative HEENT: Atraumatic, PERRLA, EOMI, Normocephalic Oral: No Gingival or Mucosal Lesions/ Ulcerations Neck: Supple, No JVD, Negative Carotid Bruits Lungs: Air entry diminished in bilateral lung bases. No crepitation/rhonchi Cardiovascular: Regular rate, Regular Rhythm, Normal S1, Normal S2, No murmurs Abdomen: Abdomen is slightly distended. Mild tenderness on the right side. Bowel sound very hypoactive, sounds gurgling liquid. NG aspirate dark bilious : No renal angle tenderness. No suprapubic tenderness. Extremities: No edema, Capillary Refill Less than 3 Seconds Skin: No rashes, No breakdown Musculoskeletal: No Tenderness to Palpation of Joints or Extremities Neurological: Cranial nerves II-XII grossly intact, Deep Tendon Reflexes 2+/4 and Symmetrical, Neuro grossly intact Psych/Mental Status: Normal Affect, Appropriate. Vitals/I&O's: Vital Signs Temp Pulse Resp BP Pulse Ox 97.8 F 85 18 121/75 H 95 10/13/20 08:10 10/13/20 08:19 10/13/20 08:10 10/13/20 08:10 10/13/20 08:10 Oxygen Delivery Method Room Air Weight: 179 lb 3.773 oz Body Mass Index (BMI) 28.9 Finger Stick Blood Glucose 338 Intake and Output for Last 24 Hours 10/11/20 10/12/20 10/13/20 23:59 23:59 23:59 Intake Total 1060 / 1060 2212.92 / 2212.92 Output Total 850 / 850 Balance 1060 / 1060 1362.92 / 1362.92 Microbiology Past 72 Hours 10/12/20 13:15 Mucosa - Nose SARS-CoV-2 Antigen (Rapid) - Final Laboratory Results 10/13/20 00:48: POC Glucose 126 H 10/13/20 05:49: POC Glucose 131 H 10/13/20 07:34: WBC 3.3 L, RBC 3.70 L, Hgb 11.0 L, Hct 35.7 L, MCV 96.5 H, MCH 29.7, MCHC 30.8 L, RDW Std Deviation 50.9 H, RDW Coeff of Roland 14.5, Plt Count 67 L, MPV 11.0, Immature Gran % (Auto) 0.300, Neut % (Auto) 77.6 H, Lymph % (Auto) 8.8 L, [place] % (Auto) 11.2 H, Eos % (Auto) 1.8, Baso % (Auto) 0.3, Absolute Neuts (auto) 2.6, Absolute Lymphs (auto) 0.29 L, Nucleated RBC % 0, Differential Comment SCANNED, Diff Path Review Reviewed 10/13/20 07:34: Sodium 141, Potassium 3.9, Chloride 111 H, Carbon Dioxide 27.0, Anion Gap 3 L, BUN 13, Creatinine 0.50 L, Estim Creat Clear Calc 147.09, Est GFR (MDRD) Af Amer 219, Est GFR (MDRD) Non-Af 181, BUN/Creatinine Ratio 25.9 H, Glu cose 124 H, Calcium 8.2 L Current Medications Carbamazepine (Carbamazepine 200 Mg Tablet) 400 mg PO BREAKFAST [facility] Last Admin: 10/13/20 08:50 Dose: Not Given Documented by: Carbamazepine (Carbamazepine 200 Mg Tablet) 600 mg PO QHS [facility] Last Admin: 10/12/20 22:13 Dose: 600 mg Documented by: Hydromorphone HCl (Hydromorphone 1 Mg/Ml Syringe) 1 mg IV Q4H PRN PRN PRN Reason: Pain Score 6-10 Last Admin: 10/13/20 10:20 Dose: 1 mg Documented by: Dextrose/Lactated Ringer's () 1,000 mls @ 125 mls/hr IV .Q8H ROSA Ondansetron HCl (Ondansetron 4 Mg/2 Ml Vial) 4 mg IV Q8H PRN PRN PRN Reason: NAUSEA/VOMITING Last Admin: 10/13/20 07:07 Dose: 4 mg Documented by: Sodium Chloride (0.9% Saline Lock 10 Ml Syringe) 10 - 40 ml IV UD PRN PRN Reason: SALINE FLUSH Last Admin: 10/12/20 17:04 Dose: 10 ml Documented by: Throat Lozenges (Benzocaine/Menthol 1 Lozenge) 1 - 2 lozenge MUCOUS MEM Q2H PRN PRN PRN Reason: SORE THROAT Last Admin: 10/13/20 10:21 Dose: 1 lozenge Documented by: Assessment/Plan This patient was seen in conjunction with Doyle SWANSON. I have independently interviewed and examined the patient and reviewed pertinent history, examination findings, laboratory and plan of management. I have reviewed the note and agree with the documented findings with the few additional points. In brief, patient is a 55-year-old gentleman with significant past surgical history of colon cancer status post right hemicolectomy with mets to liver status post 2 tumor resections, lungs and retroperitoneal lymph nodes is being admitted for small bowel obstruction with transition point in right upper quadrant. Currently on conservative management with NG tube aspirate, IV fluid. Small bowel obstruction seems adhesions from previous surgery. Discussed with the surgeon. If he needs surgery will need to be transferred to tertiary care center. Patient last surgery for liver tumor resection took more than 3 hours in [facility] and is high risk for bowel complication, perforation, fistula or repeat surgery. KUB was done since feces in the large bowel. CT abdomen done with IV contrast without oral contrast reported partial distal small bowel obstruction with zone of transition in the right upper quadrant. Postop fluid in the right hepatic lobe surgical site and small ascites along paracolic catheter. Partial atelectasis of right posterior lung. Patient had mild nausea and vomiting last night but it is controlled on Zofran and Compazine. Pancytopenia secondary to chemotherapy and colon cancer: WBC count 3.3 thousand. Mild anemia of chronic disease secondary to neoplastic disease and chemotherapy, H&H .7. Moderate thrombocytopenia, platelet count 67,000: Currently will follow CBC daily. Does not need any blood product transfusion He has other comorbidities bipolar disorder, diabetes mellitus type 2, dyslipidemia, BPH. Multiple comorbidities puts high risk for surgical intervention and complicates the present care and expect difficult and delay recovery I have discussed my assessment with Doyle SWANSON and orders have been reviewed. Total time of the visit including total time spent in counseling or coordination of care, (more than 50% of the total time, spent in obtaining medical information from nurses and other ancillary care providers), discussion with customer support consultant, review of labs and imaging is 30 minutes. Clinical Impression(s) from Imaging Studies Abdomen/Pelvis CT 10/12/20 09:14 IMPRESSION: 1. Suspicious partial distal small bowel obstruction with a zone of transition located in the right upper quadrant of the abdomen. This may be due to post operative adhesion. 2. Postoperative fluid in the right hepatic lobe surgical site and abnormal hypodense area behind the surgical clips in the right lower hepatic lobe. This hypodense area is uncertain for mass. 3. Small ascites along the paracolic gutters. 4. Partial atelectases with air bronchograms in the right posterior lung base and small right posterior pleural fluid. Superimposed pneumonia is worrisome. 5. No other additional findings or changes when compared to 02/12/2017. Chest X-Ray 10/12/20 12:37 IMPRESSION: The tip of the nasogastric tube is in the body of the stomach. Increased markings are seen at the right lung base and lingular segment of the left upper lobe suggestive of early infiltrates. Electronically Signed: Owen Mark, at 14:06 EST , Service support , Inpatient E&M: [id number] Subs Hosp L3
[2020-10-13 13:20] LABS: Pathologist Review Reviewed
[2020-10-13] MEDS: Dextrose 5%-Lactated Ringers 1,000 ML 125 ML IV ×2 (14:01→21:09)
[2020-10-13 15:45] LABS: Bedside Glucose 136 mg/dL (70-110)
[2020-10-13] MEDS: proMETHazine 25 MG/ML Syringe 12.5 MG IV (18:51)
[2020-10-13 19:01] LABS: Bedside Glucose 132 mg/dL (70-110)
--- NOTE | 2020-10-13 19:34 | NURSING ---
pt n/g has been irrigated w/ 30 ml sns, as ordered, it appears more red/dark brown flecks
[2020-10-13] MEDS: Famotidine 200 MG/20 ML MDV 20 MG in 0.9% Normal Saline (Pres. free 8 ML 300 MG IV (23:15)
[2020-10-13] MEDS: 0.9% Saline Lock 10 ML Syringe IV ×3 (23:17→23:21)
[2020-10-14] VITALS (8 sets, daily range): BP systolic 108–140; BP diastolic 57–70; PULSE 78–89; RESP 16–18; TEMP 36.8–37; O2SAT 95–96
[2020-10-14 00:55] LABS: Bedside Glucose 159 mg/dL (70-110)
[2020-10-14] MEDS: Dextrose 5%-Lactated Ringers 1,000 ML 125 ML IV ×3 (03:11→17:58)
[2020-10-14] MEDS: 0.9% Saline Lock 10 ML Syringe IV ×4 (03:18→21:33)
[2020-10-14] MEDS: HYDROmorphone 1 MG/ML Syringe IV ×5 (03:18→21:33)
--- NOTE | 2020-10-14 05:55 | RAD_ITS ---
HISTORY: SBO ADDITIONAL HISTORY: None. COMPARISON: 10/13/2020 EXAMINATION/TECHNIQUE: XR Abdomen W/ Decub and/or Erect Views Number of images including paperwork: 3 FINDINGS: FREE AIR: None detected. BOWEL GAS PATTERN: No dilated loops of bowel are apparent radiographically. Contrast noted in the mid to distal transverse and descending colon. CALCIFICATIONS: No definite urinary tract calculi. ORGANS: No evidence of organomegaly. Right upper quadrant surgical clips. SOFT TISSUES: Unremarkable. BONES: No acute skeletal findings. DEVICES: Gastric tube tip and side-port in the stomach. Loop recorder partially visible. RAD/Abd Decub and/or Erect(Portabl IMPRESSION: No acute abdominal abnormality is radiographically apparent. Gastric tube in place. at 0522 Reported and signed by: Rhonda Nascimento MD Electronically Signed: Rhonda Nascimento MD at 5:22 EST Tel , Service support ,
[2020-10-14 06:06] LABS: Absolute Lymphocyte Count 0.42 X10^3/uL (0.83-4.51); Absolute Neutrophil Count 2.2 X10^3/uL (2.0-7.7); Eosinophil# 0.08 X10^3/uL; Eosinophils% 2.6 % (0-5); Hematocrit 32.2 % (40-54); Lymphocyte # 0.42 X10^3/ul (4.0); Lymphocyte % 13.5 % (19-41); Mean Corp Hgb Conc 31.1 g/dL (32-36); Mean Corpuscular Hgb 29.4 pg (27.0-32.0); Mean Corpuscular Volume 94.7 fL (80-94); Mean Platelet Vol. 10.2 fl (6.2-12.0); Monocyte# 0.37 X10^3/uL; Monocyte% 11.9 % (0-10); NRBC Flagged by Analyzer 0 % (0-5); Neutrophil # 2.24 X10^3/uL (2.7-7.7); POSITIVE COUNT YES; POSITIVE DIFFERENTIAL YES; Platelet Count 66 K/mm3 (150-450); RBC Distribution Width CV 14.2 % (11.6-14.6); RBC Distribution Width SD 49.2 fl (35.1-43.9); White Blood Count 3.1 K/mm3 (4.4-11.0)
[2020-10-14 06:24] LABS: Differential Indicated SCAN CRITERIA MET
[2020-10-14 06:28] LABS: ALB/GLOB Ratio 0.8 RATIO (0.9-2.4); AST(SGOT) 35 U/L (15-37); Alanine Aminotransfer ALT/SGPT 34 U/L (16-61); Albumin, Serum 2.6 g/dL (3.2-5.0); Alkaline Phosphatase 99 U/L (45-117); Anion Gap 5 (5-15); BUN 12 mg/dL (7-18); BUN/Creat Ratio 23.9 RATIO (10-20); Calcium,Total 7.9 mg/dL (8.5-10.1); Chloride 109 mmol/L (98-107); EST Glomerular Filtration Rate 181 mL/min (>60); Est Glom Filt Rate - Afr Amer 218 mL/min (>60); Estimated Creatinine Clearance 147.09 ml/min; Globulin 3.2 g/dL (2.2-4.2); Glucose 159 mg/dL (74-106); Potassium 3.6 mmol/L (3.5-5.1); Protein, Total 5.8 g/dL (6.4-8.2); Sodium Level 142 mmol/L (136-145)
[2020-10-14 06:50] LABS: Bedside Glucose 153 mg/dL (70-110)
[2020-10-14 06:58] LABS: Differential Comment SCANNED
--- NOTE | 2020-10-14 08:41 | PCM.PN.SRG ---
Patient Problems: Active and Suspected Problems Small bowel obstruction (Acute) Subjective: Patient states he had a lot of flatus this morning no bowel movement and NG output total of 850 yesterday, clearish in color.Patient states his pain and still about the same 06/04 but has abdomen feels softer. - Physical Exam Vitals/I&O's: Vital Signs Temp Pulse Resp BP Pulse Ox 98.6 F 78 18 139/67 H 95 10/14/20 08:14 10/14/20 08:14 10/14/20 08:14 10/14/20 08:14 10/14/20 08:14 Oxygen Delivery Method Room Air Weight: 179 lb 3.773 oz Body Mass Index (BMI) 28.9 Finger Stick Blood Glucose 338 Intake and Output for Last 24 Hours 10/12/20 10/13/20 10/14/20 23:59 23:59 23:59 Intake Total 1060 / 1060 4084.59 / 4084.59 844.17 / 844.17 Output Total 1950 / 1950 200 / 200 Balance 1060 / 1060 2134.59 / 2134.59 644.17 / 644.17 General: Alert, Cooperative, No apparent distress Lungs: Normal air movement Cardiovascular: Regular rate Abdomen: Soft, Distended - Mild, Tender - Periumbilical no guarding Microbiology Past 72 Hours 10/12/20 13:15 Mucosa - Nose SARS-CoV-2 Antigen (Rapid) - Final Laboratory Results 10/13/20 07:34: Diff Path Review Reviewed 10/13/20 15:38: POC Glucose 136 H 10/13/20 18:50: POC Glucose 132 H 10/14/20 00:51: POC Glucose 159 H 10/14/20 05:20: WBC 3.1 L, RBC 3.40 L, Hgb 10.0 L, Hct 32.2 L, MCV 94.7 H, MCH 29.4, MCHC 31.1 L, RDW Std Deviation 49.2 H, RDW Coeff of Roland 14.2, Plt Count 66 L, MPV 10.2, Immature Gran % (Auto) 0.000, Neut % (Auto) 72.0 H, Lymph % (Auto) 13.5 L, [place] % (Auto) 11.9 H, Eos % (Auto) 2.6, Baso % (Auto) 0.0, Absolute Neuts (auto) 2.2, Absolute Lymphs (auto) 0.42 L, Nucleated RBC % 0, Differential Comment SCANNED, Diff Path Review March10/14/20 05:20: Sodium 142, Potassium 3.6, Chloride 109 H, Carbon Dioxide 28.0, Anion Gap 5, BUN 12, Creatinine 0.50 L, Estim Creat Clear Calc 147.09, Est GFR (MDRD) Af Amer 218, Est GFR (MDRD) Non-Af 181, BUN/Creatinine Ratio 23.9 H, Glucose 159 H, Calcium 7.9 L, Total Bilirubin 0.80, AST 35, ALT 34, Alkaline Phosphatase 99, Total Protein 5.8 L, Albumin 2.6 L, Globulin 3.2, Albumin/Globulin Ratio 0.8 L 10/14/20 06:41: POC Glucose 153 H Current Medications Albuterol Sulfate (Albuterol 2.5 Mg/3 Ml Vial.Neb.) 2.5 mg INHALATION Q2H PRN PRN PRN Reason: Dyspnea, wheezing Carbamazepine (Carbamazepine 200 Mg Tablet) 400 mg PO BREAKFAST [facility] Last Admin: 10/14/20 08:13 Dose: Not Given Documented by: Carbamazepine (Carbamazepine 200 Mg Tablet) 600 mg PO QHS [facility] Last Admin: 10/13/20 21:33 Dose: Not Given Documented by: Hydralazine HCl (Hydralazine 20 Mg/Ml Vial) 10 mg IV Q4H PRN PRN PRN Reason: SBP > 160 Hydromorphone HCl (Hydromorphone 1 Mg/Ml Syringe) 1 mg IV Q3H PRN PRN PRN Reason: Pain Score 6-10 Last Admin: 10/14/20 06:51 Dose: 1 mg Documented by: Dextrose/Lactated Ringer's () 1,000 mls @ 125 mls/hr IV .Q8H [facility] Last Admin: 10/14/20 03:11 Dose: 125 mls/hr Documented by: Famotidine 20 mg/ Sodium (Chloride) 10 mls @ 300 mls/hr IV Q12 [facility] Last Infusion: 10/13/20 23:17 Dose: Infused Documented by: Ondansetron HCl (Ondansetron 4 Mg/2 Ml Vial) 4 mg IV Q8H PRN PRN PRN Reason: NAUSEA/VOMITING Last Admin: 10/13/20 14:00 Dose: 4 mg Documented by: Promethazine HCl (Promethazine 25 Mg/Ml Syringe) 12.5 mg IV Q6H PRN PRN PRN Reason: NAUSEA/VOMITING Last Admin: 10/13/20 18:51 Dose: 12.5 mg Documented by: Sodium Chloride (0.9% Saline Lock 10 Ml Syringe) 10 - 40 ml IV UD PRN PRN Reason: SALINE FLUSH Last Admin: 10/14/20 06:51 Dose: 10 ml Documented by: Throat Lozenges (Benzocaine/Menthol 1 Lozenge) 1 - 2 lozenge MUCOUS MEM Q2H PRN PRN PRN Reason: SORE THROAT Last Admin: 10/13/20 10:21 Dose: 1 lozenge Documented by: Medical Necessity - Tobacco Use Smoking Status: Former smoker Tobacco Use: Cigarettes Assessment/Plan All Active Problems Small bowel obstruction (Acute) 55-year-old male with metastatic colon cancer to the liver, lungs, retroperitoneal lymph nodes status post colon resection and liver resections, history of thrombocytopenia We will continue n.p.o./IV fluids/NG. Would not plan to do a small bowel follow-through today and I am concerned it could cause more of a setback than help as patient states he is having flatus and looks on like his KUB showed more stool in the colon. Did offer patient Dulcolax suppository however he did not want 1. Razia Harper M.D. Pager: [phone] [facility] [address] [place] [address], Outpatient [place], [address] [place] [address] Office: [phone] Inpatient E&M: [id number] [facility] L[facility]
[2020-10-14] MEDS: Famotidine 200 MG/20 ML MDV 20 MG in 0.9% Normal Saline (Pres. free 8 ML 300 MG IV ×2 (10:03→21:21)
--- NOTE | 2020-10-14 11:14 | PCM.PROGNOTE ---
<Farzana Carmona BUTCHER SCULLION - Last Filed: 10/14/20 11:23> Patient Problems: Active and Suspected Problems Small bowel obstruction (Acute) Subjective: Patient seen and examined. Continues to have abdominal tenderness. Reports passing flatus. No bowel movement. Denies nausea, vomiting. Refused Dulcolax suppository. Patient states he is hoping to ambulate in the hallway. - Physical Exam Vitals/I&O's: Vital Signs Temp Pulse Resp BP Pulse Ox 98.6 F 81 18 139/67 H 95 10/14/20 08:14 10/14/20 10:48 10/14/20 08:14 10/14/20 08:14 10/14/20 08:14 Oxygen Delivery Method Room Air Weight: 179 lb 3.773 oz Body Mass Index (BMI) 28.9 Finger Stick Blood Glucose 338 Intake and Output for Last 24 Hours 10/12/20 10/13/20 10/14/20 23:59 23:59 23:59 Intake Total 1060 / 1060 4084.59 / 4084.59 1764.59 / 1764.59 Output Total 1950 / 1950 200 / 200 Balance 1060 / 1060 2134.59 / 2134.59 1564.59 / 1564.59 General: Alert, Oriented x3, Cooperative HEENT: Atraumatic, PERRLA, EOMI, Normocephalic Oral: Dry Mucosa Neck: Supple, No JVD, Negative Carotid Bruits Lungs: Clear to auscultation, Normal air movement Cardiovascular: Regular rate, No murmurs Abdomen: Hypoactive Bowel Sounds, Distended, Tender Extremities: No clubbing, No cyanosis, No edema, Capillary Refill Less than 3 Seconds Skin: No rashes, No breakdown Musculoskeletal: No Tenderness to Palpation of Joints or Extremities Neurological: Cranial nerves II-XII grossly intact, Neuro grossly intact Psych/Mental Status: Normal Affect, Appropriate Microbiology Past 72 Hours 10/12/20 13:15 Mucosa - Nose SARS-CoV-2 Antigen (Rapid) - Final Laboratory Results 10/13/20 07:34: Diff Path Review Reviewed 10/13/20 15:38: POC Glucose 136 H 10/13/20 18:50: POC Glucose 132 H 10/14/20 00:51: POC Glucose 159 H 10/14/20 05:20: WBC 3.1 L, RBC 3.40 L, Hgb 10.0 L, Hct 32.2 L, MCV 94.7 H, MCH 29.4, MCHC 31.1 L, RDW Std Deviation 49.2 H, RDW Coeff of Roland 14.2, Plt Count 66 L, MPV 10.2, Immature Gran % (Auto) 0.000, Neut % (Auto) 72.0 H, Lymph % (Auto) 13.5 L, [place] % (Auto) 11.9 H, Eos % (Auto) 2.6, Baso % (Auto) 0.0, Absolute Neuts (auto) 2.2, Absolute Lymphs (auto) 0.42 L, Nucleated RBC % 0, Differential Comment SCANNED, Diff Path Review March10/14/20 05:20: Sodium 142, Potassium 3.6, Chloride 109 H, Carbon Dioxide 28.0, Anion Gap 5, BUN 12, Creatinine 0.50 L, Estim Creat Clear Calc 147.09, Est GFR (MDRD) Af Amer 218, Est GFR (MDRD) Non-Af 181, BUN/Creatinine Ratio 23.9 H, Glucose 159 H, Calcium 7.9 L, Total Bilirubin 0.80, AST 35, ALT 34, Alkaline Phosphatase 99, Total Protein 5.8 L, Albumin 2.6 L, Globulin 3.2, Albumin/Globulin Ratio 0.8 L 10/14/20 06:41: POC Glucose 153 H Current Medications Albuterol Sulfate (Albuterol 2.5 Mg/3 Ml Vial.Neb.) 2.5 mg INHALATION Q2H PRN PRN PRN Reason: Dyspnea, wheezing Carbamazepine (Carbamazepine 200 Mg Tablet) 400 mg PO BREAKFAST [facility] Last Admin: 10/14/20 08:13 Dose: Not Given Documented by: Carbamazepine (Carbamazepine 200 Mg Tablet) 600 mg PO QHS [facility] Last Admin: 10/13/20 21:33 Dose: Not Given Documented by: Hydralazine HCl (Hydralazine 20 Mg/Ml Vial) 10 mg IV Q4H PRN PRN PRN Reason: SBP > 160 Hydromorphone HCl (Hydromorphone 1 Mg/Ml Syringe) 1 mg IV Q3H PRN PRN PRN Reason: Pain Score 6-10 Last Admin: 10/14/20 06:51 Dose: 1 mg Documented by: Dextrose/Lactated Ringer's () 1,000 mls @ 125 mls/hr IV .Q8H [facility] Last Admin: 10/14/20 10:28 Dose: 125 mls/hr Documented by: Famotidine 20 mg/ Sodium (Chloride) 10 mls @ 300 mls/hr IV Q12 [facility] Last Infusion: 10/14/20 10:21 Dose: Infused Documented by: Ondansetron HCl (Ondansetron 4 Mg/2 Ml Vial) 4 mg IV Q8H PRN PRN PRN Reason: NAUSEA/VOMITING Last Admin: 10/13/20 14:00 Dose: 4 mg Documented by: Promethazine HCl (Promethazine 25 Mg/Ml Syringe) 12.5 mg IV Q6H PRN PRN PRN Reason: NAUSEA/VOMITING Last Admin: 10/13/20 18:51 Dose: 12.5 mg Documented by: Sodium Chloride (0.9% Saline Lock 10 Ml Syringe) 10 - 40 ml IV UD PRN PRN Reason: SALINE FLUSH Last Admin: 10/14/20 06:51 Dose: 10 ml Documented by: Throat Lozenges (Benzocaine/Menthol 1 Lozenge) 1 - 2 lozenge MUCOUS MEM Q2H PRN PRN PRN Reason: SORE THROAT Last Admin: 10/13/20 10:21 Dose: 1 lozenge Documented by: Medical Necessity - Tobacco Use Smoking Status: Former smoker Tobacco Use: Cigarettes Assessment/Plan All Active Problems Small bowel obstruction (Acute) 1. Small bowel obstruction, history of colon cancer status post resection- general surgery following. NG in place. N.p.o., IV fluids. Possible small bowel follow-through tomorrow if patient shows improvement. Encourage ambulation. Patient declines Dulcolax suppository. 2. Metastatic colon cancer-mets to liver, lungs, retroperitoneal lymph nodes status post colon resection and liver resection-following with oncology. 3. Type 2 diabetes [id number] with sliding scale insulin. 4. Hyperlipidemia- statin on hold. 5. BPH-on Flomax, resume when able to tolerate oral intake. 6. Pancytopenia-secondary to #2. 7. Bipolar disorder-resume home regimen when able to tolerate oral intake. DVT prophylaxis-SCDs This patient was seen by AMY Noland under the supervision of Dr. Beranl. <Melo Bernal - Last Filed: 10/14/20 15:49> Objective: Patient feels less distention. Is passing flatus but not bowel movement yet. Denies abdominal pain. No fever or chills. Blood pressure and heart rate are controlled. Physical exam General: Alert, Oriented x3, Cooperative HEENT: Atraumatic, PERRLA, EOMI, Normocephalic Oral: No Gingival or Mucosal Lesions/ Ulcerations Neck: Supple, No JVD, Negative Carotid Bruits Lungs: Air entry diminished in bilateral lung bases. No crepitation/rhonchi Cardiovascular: Regular rate, Regular Rhythm, Normal S1, Normal S2, No murmurs Abdomen: Distention is less. No tenderness. Bowel sound very hypoactive. NG aspirate dark bilious, 850 mL last 24 hours and 350 mils since morning. : No renal angle tenderness. No suprapubic tenderness. Extremities: No edema, Capillary Refill Less than 3 Seconds Skin: No rashes, No breakdown Musculoskeletal: No Tenderness to Palpation of Joints or Extremities Neurological: Cranial nerves II-XII grossly intact, Deep Tendon Reflexes 2+/4 and Symmetrical, Neuro grossly intact Psych/Mental Status: Normal Affect, Appropriate. - Physical Exam Vitals/I&O's: Vital Signs Temp Pulse Resp BP Pulse Ox 98.2 F 86 16 136/70 H 96 10/14/20 15:09 10/14/20 15:09 10/14/20 15:09 10/14/20 15:09 10/14/20 15:09 Oxygen Delivery Method Room Air Weight: 179 lb 3.773 oz Body Mass Index (BMI) 28.9 Finger Stick Blood Glucose 338 Intake and Output for Last 24 Hours 10/12/20 10/13/20 10/14/20 23:59 23:59 23:59 Intake Total 1060 / 1060 4084.59 / 4084.59 1854.59 / 1854.59 Output Total 1950 / 1950 950 / 950 Balance 1060 / 1060 2134.59 / 2134.59 904.59 / 904.59 Microbiology Past 72 Hours 10/12/20 13:15 Mucosa - Nose SARS-CoV-2 Antigen (Rapid) - Final Laboratory Results 10/13/20 15:38: POC Glucose 136 H 10/13/20 18:50: POC Glucose 132 H 10/14/20 00:51: POC Glucose 159 H 10/14/20 05:20: WBC 3.1 L, RBC 3.40 L, Hgb 10.0 L, Hct 32.2 L, MCV 94.7 H, MCH 29.4, MCHC 31.1 L, RDW Std Deviation 49.2 H, RDW Coeff of Roland 14.2, Plt Count 66 L, MPV 10.2, Immature Gran % (Auto) 0.000, Neut % (Auto) 72.0 H, Lymph % (Auto) 13.5 L, [place] % (Auto) 11.9 H, Eos % (Auto) 2.6, Baso % (Auto) 0.0, Absolute Neuts (auto) 2.2, Absolute Lymphs (auto) 0.42 L, Nucleated RBC % 0, Differential Comment SCANNED, Diff Path Review Reviewed 10/14/20 05:20: Sodium 142, Potassium 3.6, Chloride 109 H, Carbon Dioxide 28.0, Anion Gap 5, BUN 12, Creatinine 0.50 L, Estim Creat Clear Calc 147.09, Est GFR (MDRD) Af Amer 218, Est GFR (MDRD) Non-Af 181, BUN/Creatinine Ratio 23.9 H, Glucose 159 H, Calcium 7.9 L, Total Bilirubin 0.80, AST 35, ALT 34, Alkaline Phosphatase 99, Total Protein 5.8 L, Albumin 2.6 L, Globulin 3.2, Albumin/Globulin Ratio 0.8 L 10/14/20 06:41: POC Glucose 153 H 10/14/20 11:41: POC Glucose 141 H Current Medications Albuterol Sulfate (Albuterol 2.5 Mg/3 Ml Vial.Neb.) 2.5 mg INHALATION Q2H PRN PRN PRN Reason: Dyspnea, wheezing Carbamazepine (Carbamazepine 200 Mg Tablet) 400 mg PO BREAKFAST [facility] Last Admin: 10/14/20 08:13 Dose: Not Given Documented by: Carbamazepine (Carbamazepine 200 Mg Tablet) 600 mg PO QHS [facility] Last Admin: 10/13/20 21:33 Dose: Not Given Documented by: Hydralazine HCl (Hydralazine 20 Mg/Ml Vial) 10 mg IV Q4H PRN PRN PRN Reason: SBP > 160 Hydromorphone HCl (Hydromorphone 1 Mg/Ml Syringe) 1 mg IV Q3H PRN PRN PRN Reason: Pain Score 6-10 Last Admin: 10/14/20 11:49 Dose: 1 mg Documented by: Dextrose/Lactated Ringer's () 1,000 mls @ 125 mls/hr IV .Q8H [facility] Last Admin: 10/14/20 10:28 Dose: 125 mls/hr Documented by: Famotidine 20 mg/ Sodium (Chloride) 10 mls @ 300 mls/hr IV Q12 [facility] Last Infusion: 10/14/20 10:21 Dose: Infused Documented by: Insulin Human Lispro (Insulin Lispro 100 Unit/Ml Insuln.Pen) 0 unit SC Q6H [facility]; Protocol Last Admin: 10/14/20 11:46 Dose: Not Given Documented by: Ondansetron HCl (Ondansetron 4 Mg/2 Ml Vial) 4 mg IV Q8H PRN PRN PRN Reason: NAUSEA/VOMITING Last Admin: 10/13/20 14:00 Dose: 4 mg Documented by: Promethazine HCl (Promethazine 25 Mg/Ml Syringe) 12.5 mg IV Q6H PRN PRN PRN Reason: NAUSEA/VOMITING Last Admin: 10/13/20 18:51 Dose: 12.5 mg Documented by: Sodium Chloride (0.9% Saline Lock 10 Ml Syringe) 10 - 40 ml IV UD PRN PRN Reason: SALINE FLUSH Last Admin: 10/14/20 06:51 Dose: 10 ml Documented by: Throat Lozenges (Benzocaine/Menthol 1 Lozenge) 1 - 2 lozenge MUCOUS MEM Q2H PRN PRN PRN Reason: SORE THROAT Last Admin: 10/13/20 10:21 Dose: 1 lozenge Documented by: Assessment/Plan This patient was seen in conjunction with BUTCHER SCULLIONFarzana. I have independently interviewed and examined the patient and reviewed pertinent history, examination findings, laboratory and plan of management. I have reviewed the note and agree with the documented findings with the few additional points. In brief, patient is a 55-year-old gentleman with significant past surgical history of colon cancer status post right hemicolectomy with mets to liver status post 2 tumor resections, lungs and retroperitoneal lymph nodes is being admitted for small bowel obstruction with transition point in right upper quadrant. Currently on conservative management with NG tube aspirate, IV fluid. Small bowel obstruction seems adhesions from previous surgery. The patient is passing flatus although not good bowel movement. Abdominal distention is less. Repeat KUB shows colon Feces. CT abdomen done with IV contrast without oral contrast reported partial distal small bowel obstruction with zone of transition in the right upper quadrant. Postop fluid in the right hepatic lobe surgical site and small ascites along paracolic catheter. Partial atelectasis of right posterior lung. It seems patient is improving on conservative management. Discussed with the surgeon. Pancytopenia secondary to chemotherapy and colon cancer: Repeat labs did not show much change. Platelet count is stable in 60,000s. Does not need blood transfusion product. He has other comorbidities bipolar disorder, diabetes mellitus type 2, dyslipidemia, BPH. Multiple comorbidities puts high risk for surgical intervention and complicates the present care and expect difficult and delay recovery I have discussed my assessment with Farzana MONTAÑO and orders have been reviewed. Clinical Impression(s) from Imaging Studies Abdomen/Pelvis CT 10/12/20 09:14 IMPRESSION: 1. Suspicious partial distal small bowel obstruction with a zone of transition located in the right upper quadrant of the abdomen. This may be due to post operative adhesion. 2. Postoperative fluid in the right hepatic lobe surgical site and abnormal hypodense area behind the surgical clips in the right lower hepatic lobe. This hypodense area is uncertain for mass. 3. Small ascites along the paracolic gutters. 4. Partial atelectases with air bronchograms in the right posterior lung base and small right posterior pleural fluid. Superimposed pneumonia is worrisome. 5. No other additional findings or changes when compared to 02/12/2017. Electronically Signed: Rome Willson MD at 12:28 EST , Service support , Chest X-Ray 10/12/20 12:37 IMPRESSION: The tip of the nasogastric tube is in the body of the stomach. Increased markings are seen at the right lung base and lingular segment of the left upper lobe suggestive of early infiltrates. KUB X-Ray 10/13/20 08:11 IMPRESSION: No definite acute abnormality. No definite evidence for obstruction. Abdomen X-Ray 10/14/20 05:55 IMPRESSION: No acute abdominal abnormality is radiographically apparent. Gastric tube in place. Inpatient E&M: 55438 Subs Hosp L2
[2020-10-14 11:51] LABS: Bedside Glucose 141 mg/dL (70-110)
[2020-10-14 12:54] LABS: Pathologist Review Reviewed
[2020-10-14] MEDS: BENZOCAINE/MENTHOL 1 LOZENGE MUCOUS MEM ×2 (15:45→21:32)
[2020-10-14 16:55] LABS: Bedside Glucose 150 mg/dL (70-110)
[2020-10-14] MEDS: carBAMazepine 200 MG/10 ML UDC PO (21:25)
[2020-10-14] MEDS: carBAMazepine 200 MG/10 ML UDC 400 MG PO (21:26)
[2020-10-15] VITALS (8 sets, daily range): BP systolic 132–135; BP diastolic 68–73; PULSE 77–106; RESP 16–18; TEMP 36.7–37.2; O2SAT 95–98
[2020-10-15] MEDS: HYDROmorphone 1 MG/ML Syringe IV ×5 (00:34→21:20)
[2020-10-15] MEDS: 0.9% Saline Lock 10 ML Syringe IV ×4 (00:35→21:20)
[2020-10-15] MEDS: Insulin Lispro 100 UNIT/ML INSULN.PEN SC ×5 (00:35→23:29)
[2020-10-15 00:36] LABS: Bedside Glucose 193 mg/dL (70-110)
[2020-10-15] MEDS: Dextrose 5%-Lactated Ringers 1,000 ML 125 ML IV ×4 (00:40→23:31)
[2020-10-15] MEDS: carBAMazepine 200 MG/10 ML UDC PO ×2 (06:06→14:11)
[2020-10-15 06:16] LABS: Hematocrit 30.8 % (40-54); Mean Corp Hgb Conc 32.5 g/dL (32-36); Mean Corpuscular Hgb 30.4 pg (27.0-32.0); Mean Corpuscular Volume 93.6 fL (80-94); Mean Platelet Vol. 10.4 fl (6.2-12.0); POSITIVE COUNT YES; Platelet Count 62 K/mm3 (150-450); RBC Distribution Width CV 14.1 % (11.6-14.6); RBC Distribution Width SD 48.3 fl (35.1-43.9); Red Blood Count 3.29 M/mm3 (4.6-6.2); White Blood Count 3.1 K/mm3 (4.4-11.0)
[2020-10-15 06:20] LABS: Bedside Glucose 198 mg/dL (70-110)
[2020-10-15 06:37] LABS: Anion Gap 3 (5-15); BUN 8 mg/dL (7-18); BUN/Creat Ratio 15.6 RATIO (10-20); Calcium,Total 7.7 mg/dL (8.5-10.1); Chloride 110 mmol/L (98-107); Creatinine, Serum 0.51 mg/dL (0.70-1.30); EST Glomerular Filtration Rate 177 mL/min (>60); Est Glom Filt Rate - Afr Amer 214 mL/min (>60); Estimated Creatinine Clearance 144.21 ml/min; Glucose 193 mg/dL (74-106); Potassium 3.3 mmol/L (3.5-5.1); Sodium Level 140 mmol/L (136-145)
[2020-10-15] MEDS: BENZOCAINE/MENTHOL 1 LOZENGE MUCOUS MEM ×4 (07:17→23:46)
--- NOTE | 2020-10-15 08:31 | PCM.PN.SRG ---
Patient Problems: Active and Suspected Problems Small bowel obstruction (Acute) Subjective: abd pain improved, still +flatus, no BM, pt now agreeable to suppository - Physical Exam Vitals/I&O's: Vital Signs Temp Pulse Resp BP Pulse Ox 98.1 F 79 18 134/68 H 95 10/15/20 03:39 10/15/20 07:21 10/15/20 03:39 10/15/20 03:39 10/15/20 03:39 Oxygen Delivery Method Room Air Weight: 179 lb 3.773 oz Body Mass Index (BMI) 28.9 Finger Stick Blood Glucose 338 Intake and Output for Last 24 Hours 10/13/20 10/14/20 10/15/20 23:59 23:59 23:59 Intake Total 4084.59 / 4084.59 3092.09 / 3092.09 1843.33 / 1843.33 Output Total 1950 / 1950 2350 / 2350 800 / 800 Balance 2134.59 / 2134.59 742.09 / 742.09 1043.33 / 1043.33 General: Alert, Oriented x3, Cooperative, No apparent distress HEENT: Atraumatic Cardiovascular: Regular rate Abdomen: Soft, Non Tender, Non-Distended Extremities: No clubbing, No cyanosis, No edema Microbiology Past 72 Hours 10/12/20 13:15 Mucosa - Nose SARS-CoV-2 Antigen (Rapid) - Final Laboratory Results 10/14/20 05:20: Diff Path Review Reviewed 10/14/20 11:41: POC Glucose 141 H 10/14/20 16:51: POC Glucose 150 H 10/15/20 00:29: POC Glucose 193 H 10/15/20 05:44: WBC 3.1 L, RBC 3.29 L, Hgb 10.0 L, Hct 30.8 L, MCV 93.6, MCH 30.4, MCHC 32.5, RDW Std Deviation 48.3 H, RDW Coeff of Roland 14.1, Plt Count 62 L, MPV 10.4 10/15/20 05:44: Sodium 140, Potassium 3.3 L, Chloride 110 H, Carbon Dioxide 27.0, Anion Gap 3 L, BUN 8, Creatinine 0.51 L, Estim Creat Clear Calc 144.21, Est GFR (MDRD) Af Amer 214, Est GFR (MDRD) Non-Af 177, BUN/Creatinine Ratio 15.6, Glucose 193 H, Calcium 7.7 L 10/15/20 05:44: Phosphorus Pending, Magnesium Pending 10/15/20 06:03: POC Glucose 198 H Current Medications Albuterol Sulfate (Albuterol 2.5 Mg/3 Ml Vial.Neb.) 2.5 mg INHALATION Q2H PRN PRN PRN Reason: Dyspnea, wheezing Carbamazepine (Carbamazepine 200 Mg/10 Ml Udc) 200 mg PO TID [facility] Last Admin: 10/15/20 06:06 Dose: 200 mg Documented by: Carbamazepine (Carbamazepine 200 Mg/10 Ml Udc) 400 mg PO QHS [facility] Last Admin: 10/14/20 21:26 Dose: 400 mg Documented by: Hydralazine HCl (Hydralazine 20 Mg/Ml Vial) 10 mg IV Q4H PRN PRN PRN Reason: SBP > 160 Hydromorphone HCl (Hydromorphone 1 Mg/Ml Syringe) 1 mg IV Q4H PRN PRN PRN Reason: Pain Score 6-10 Dextrose/Lactated Ringer's () 1,000 mls @ 125 mls/hr IV .Q8H [facility] Last Admin: 10/15/20 07:26 Dose: 125 mls/hr Documented by: Famotidine 20 mg/ Sodium (Chloride) 10 mls @ 300 mls/hr IV Q12 [facility] Last Infusion: 10/14/20 21:23 Dose: Infused Documented by: Potassium Chloride () 10 meq in 100 mls @ 100 mls/hr IV BOLUS Q1H [facility] Stop: 10/15/20 12:14 Insulin Human Lispro (Insulin Lispro 100 Unit/Ml Insuln.Pen) 0 unit SC Q6H [facility]; Protocol Last Admin: 10/15/20 06:04 Dose: 1 u Documented by: Ondansetron HCl (Ondansetron 4 Mg/2 Ml Vial) 4 mg IV Q8H PRN PRN PRN Reason: NAUSEA/VOMITING Last Admin: 10/13/20 14:00 Dose: 4 mg Documented by: Promethazine HCl (Promethazine 25 Mg/Ml Syringe) 12.5 mg IV Q6H PRN PRN PRN Reason: NAUSEA/VOMITING Last Admin: 10/13/20 18:51 Dose: 12.5 mg Documented by: Sodium Chloride (0.9% Saline Lock 10 Ml Syringe) 10 - 40 ml IV UD PRN PRN Reason: SALINE FLUSH Last Admin: 10/15/20 07:17 Dose: 10 ml Documented by: Throat Lozenges (Benzocaine/Menthol 1 Lozenge) 1 - 2 lozenge MUCOUS MEM Q2H PRN PRN PRN Reason: SORE THROAT Last Admin: 10/15/20 07:17 Dose: 1 lozenge Documented by: Medical Necessity - Tobacco Use Smoking Status: Former smoker Tobacco Use: Cigarettes Assessment/Plan All Active Problems Small bowel obstruction (Acute) 55-year-old male with metastatic colon cancer to the liver, lungs, retroperitoneal lymph nodes status post colon resection and liver resections, history of thrombocytopenia We will continue n.p.o./IV fluids/NG. Pt now agreeable to suppository; hopefully that will help move the stool in the colon as pt abdomen is soft and not really tender on exam. KUB ordered. Dr. Navarrete will be covering this Weekend. Razia Harper M.D. Pager: [phone] [facility] [address] [place] [address], [facility], [address] [place] [address] Office: [phone] Inpatient E&M: 53958 [facility] Hosp L1
[2020-10-15 08:38] LABS: Magnesium 1.9 mg/dL (1.6-2.6); Phosphorus 2.6 mg/dL (2.5-4.9)
[2020-10-15] MEDS: Famotidine 200 MG/20 ML MDV 20 MG in 0.9% Normal Saline (Pres. free 8 ML 300 MG IV ×2 (08:57→21:29)
[2020-10-15] MEDS: Bisacodyl 10 MG Suppository RECTAL ×2 (10:24→15:30)
--- NOTE | 2020-10-15 10:47 | PN_ITS ---
<MathewFarzana DIRECTOR BUSINESS DEVELOPMENT - Last Filed: 10/15/20 10:52> Patient Problems: Active and Suspected Problems Small bowel obstruction (Acute) Subjective: Patient seen and examined. States his abdomen feels softer and less distended. Abdominal tenderness improved as well. Continues to pass flatus. No bowel movement. Agreeable to suppository. Encouraged continued ambulation. - Physical Exam Vitals/I&O's: Vital Signs Temp Pulse Resp BP Pulse Ox 98.3 F 83 18 132/73 H 98 10/15/20 08:50 10/15/20 08:50 10/15/20 08:50 10/15/20 08:50 10/15/20 08:50 Oxygen Delivery Method Room Air Weight: 179 lb 3.773 oz Body Mass Index (BMI) 28.9 Finger Stick Blood Glucose 338 Intake and Output for Last 24 Hours 10/13/20 10/14/20 10/15/20 23:59 23:59 23:59 Intake Total 4084.59 / 4084.59 3092.09 / 3092.09 1883.33 / 1883.33 Output Total 1950 / 1950 2350 / 2350 800 / 800 Balance 2134.59 / 2134.59 742.09 / 742.09 1083.33 / 1083.33 General: Alert, Oriented x3, Cooperative HEENT: Atraumatic, PERRLA, EOMI, Normocephalic Oral: Dry Mucosa Neck: Supple, No JVD, Negative Carotid Bruits Lungs: Clear to auscultation, Normal air movement Cardiovascular: Regular rate, No murmurs Abdomen: Soft, Hypoactive Bowel Sounds, Distended, Tender Extremities: No clubbing, No cyanosis, No edema, Capillary Refill Less than 3 Seconds Skin: No rashes, No breakdown Musculoskeletal: No Tenderness to Palpation of Joints or Extremities Neurological: Cranial nerves II-XII grossly intact, Neuro grossly intact Psych/Mental Status: Normal Affect, Appropriate Microbiology Past 72 Hours 10/12/20 13:15 Mucosa - Nose SARS-CoV-2 Antigen (Rapid) - Final Laboratory Results 10/14/20 05:20: Diff Path Review Reviewed 10/14/20 11:41: POC Glucose 141 H 10/14/20 16:51: POC Glucose 150 H 10/15/20 00:29: POC Glucose 193 H 10/15/20 05:44: WBC 3.1 L, RBC 3.29 L, Hgb 10.0 L, Hct 30.8 L, MCV 93.6, MCH 30.4, MCHC 32.5, RDW Std Deviation 48.3 H, RDW Coeff of Roland 14.1, Plt Count 62 L , MPV 10.4 10/15/20 05:44: Sodium 140, Potassium 3.3 L, Chloride 110 H, Carbon Dioxide 27.0, Anion Gap 3 L, BUN 8, Creatinine 0.51 L, Estim Creat Clear Calc 144.21, Est GFR (MDRD) Af Amer 214, Est GFR (MDRD) Non-Af 177, BUN/Creatinine Ratio 15.6, Glucose 193 H, Calcium 7.7 L 10/15/20 05:44: Phosphorus 2.6, Magnesium 1.9 10/15/20 06:03: POC Glucose 198 H Current Medications Albuterol Sulfate (Albuterol 2.5 Mg/3 Ml Vial.Neb.) 2.5 mg INHALATION Q2H PRN PRN PRN Reason: Dyspnea, wheezing Carbamazepine (Carbamazepine 200 Mg/10 Ml Udc) 200 mg PO TID [facility] Last Admin: 10/15/20 06:06 Dose: 200 mg Documented by: Carbamazepine (Carbamazepine 200 Mg/10 Ml Udc) 400 mg PO QHS [facility] Last Admin: 10/14/20 21:26 Dose: 400 mg Documented by: Hydralazine HCl (Hydralazine 20 Mg/Ml Vial) 10 mg IV Q4H PRN PRN PRN Reason: SBP > 160 Hydromorphone HCl (Hydromorphone 1 Mg/Ml Syringe) 1 mg IV Q4H PRN PRN PRN Reason: Pain Score 6-10 Dextrose/Lactated Ringer's () 1,000 mls @ 125 mls/hr IV .Q8H [facility] Last Admin: 10/15/20 07:26 Dose: 125 mls/hr Documented by: Famotidine 20 mg/ Sodium (Chloride) 10 mls @ 300 mls/hr IV Q12 [facility] Last Infusion: 10/15/20 09:04 Dose: Infused Documented by: Potassium Chloride 40 meq/ (Sodium Chloride) 120 mls @ 100 mls/hr IV BOLUS X1 ONE Stop: 10/15/20 11:11 Last Admin: 10/15/20 10:24 Dose: 100 mls/hr Documented by: Insulin Human Lispro (Insulin Lispro 100 Unit/Ml Insuln.Pen) 0 unit SC Q6H [facility]; Protocol Last Admin: 10/15/20 06:04 Dose: 1 u Documented by: Ondansetron HCl (Ondansetron 4 Mg/2 Ml Vial) 4 mg IV Q8H PRN PRN PRN Reason: NAUSEA/VOMITING Last Admin: 10/13/20 14:00 Dose: 4 mg Documented by: Promethazine HCl (Promethazine 25 Mg/Ml Syringe) 12.5 mg IV Q6H PRN PRN PRN Reason: NAUSEA/VOMITING Last Admin: 10/13/20 18:51 Dose: 12.5 mg Documented by: Sodium Chloride (0.9% Saline Lock 10 Ml Syringe) 10 - 40 ml IV UD PRN PRN Reason: SALINE FLUSH Last Admin: 10/15/20 07:17 Dose: 10 ml Documented by: Throat Lozenges (Benzocaine/Menthol 1 Lozenge) 1 - 2 lozenge MUCOUS MEM Q2H PRN PRN PRN Reason: SORE THROAT Last Admin: 10/15/20 07:17 Dose: 1 lozenge Documented by: Medical Necessity - Tobacco Use Smoking Status: Former smoker Tobacco Use: Cigarettes Assessment/Plan All Active Problems Small bowel obstruction (Acute) 1. Small bowel obstruction, history of colon cancer status post resection- general surgery following. NG in place. N.p.o., IV fluids. Possible small bowel follow-through if patient shows improvement. Encourage continued ambulation. Patient agreeable to Dulcolax suppository. 2. Metastatic colon cancer-mets to liver, lungs, retroperitoneal lymph nodes status post colon resection and liver resection-following with oncology. 3. Type 2 diabetes [id number]-[id number] with sliding scale insulin. 4. Hyperlipidemia- statin on hold. 5. BPH-on Flomax, resume when able to tolerate oral intake. 6. Pancytopenia-secondary to #2. 7. Bipolar disorder-resume home regimen when able to tolerate oral intake. DVT prophylaxis-SCDs This patient was seen by AMY Noland under the supervision of Dr. Bernal. <Melo Bernal - Last Filed: 10/15/20 15:09> Objective: Patient moved bowels after Dulcolax suppository. He had large bowel movement, formed. Patient passing flatus and voiding urine. Physical exam General: Alert, Oriented x3, Cooperative HEENT: Atraumatic, PERRLA, EOMI, Normocephalic Oral: No Gingival or Mucosal Lesions/ Ulcerations Neck: Supple, No JVD, Negative Carotid Bruits Lungs: Air entry diminished in bilateral lung bases. No crepitation/rhonchi Cardiovascular: Regular rate, Regular Rhythm, Normal S1, Normal S2, No murmurs Abdomen: Soft, bowel sounds hypoactive. Mild distention but no tenderness. : No renal angle tenderness. No suprapubic tenderness. Extremities: No edema, Capillary Refill Less than 3 Seconds Skin: No rashes, No breakdown Musculoskeletal: No Tenderness to Palpation of Joints or Extremities Neurological: Cranial nerves II-XII grossly intact, Deep Tendon Reflexes 2+/4 and Symmetrical, Neuro grossly intact Psych/Mental Status: Normal Affect, Appropriate. - Physical Exam Vitals/I&O's: Vital Signs Temp Pulse Resp BP Pulse Ox 98.4 F 80 16 135/69 H 98 10/15/20 14:14 10/15/20 14:14 10/15/20 14:14 10/15/20 14:14 10/15/20 14:14 Oxygen Delivery Method Room Air Weight: 179 lb 3.773 oz Body Mass Index (BMI) 28.9 Finger Stick Blood Glucose 338 Intake and Output for Last 24 Hours 10/13/20 10/14/20 10/15/20 23:59 23:59 23:59 Intake Total 4084.59 / 4084.59 3092.09 / 3092.09 2033.33 / 2033.33 Output Total 1950 / 1950 2350 / 2350 1400 / 1400 Balance 2134.59 / 2134.59 742.09 / 742.09 633.33 / 633.33 Microbiology Past 72 Hours 10/12/20 13:15 Mucosa - Nose SARS-CoV-2 Antigen (Rapid) - Final Laboratory Results 10/14/20 16:51: POC Glucose 150 H 10/15/20 00:29: POC Glucose 193 H 10/15/20 05:44: WBC 3.1 L, RBC 3.29 L, Hgb 10.0 L, Hct 30.8 L, MCV 93.6, MCH 30.4, MCHC 32.5, RDW Std Deviation 48.3 H, RDW Coeff of Roland 14.1, Plt Count 62 L , MPV 10.4 10/15/20 05:44: Sodium 140, Potassium 3.3 L, Chloride 110 H, Carbon Dioxide 27.0, Anion Gap 3 L, BUN 8, Creatinine 0.51 L, Estim Creat Clear Calc 144.21, Est GFR (MDRD) Af Amer 214, Est GFR (MDRD) Non-Af 177, BUN/Creatinine Ratio 15.6, Glucose 193 H, Calcium 7.7 L 10/15/20 05:44: Phosphorus 2.6, Magnesium 1.9 10/15/20 06:03: POC Glucose 198 H Current Medications Albuterol Sulfate (Albuterol 2.5 Mg/3 Ml Vial.Neb.) 2.5 mg INHALATION Q2H PRN PRN PRN Reason: Dyspnea, wheezing Carbamazepine (Carbamazepine 200 Mg/10 Ml Udc) 200 mg PO TID [facility] Last Admin: 10/15/20 14:11 Dose: 200 mg Documented by: Carbamazepine (Carbamazepine 200 Mg/10 Ml Udc) 400 mg PO QHS [facility] Last Admin: 10/14/20 21:26 Dose: 400 mg Documented by: Hydralazine HCl (Hydralazine 20 Mg/Ml Vial) 10 mg IV Q4H PRN PRN PRN Reason: SBP > 160 Hydromorphone HCl (Hydromorphone 1 Mg/Ml Syringe) 1 mg IV Q4H PRN PRN PRN Reason: Pain Score 6-10 Last Admin: 10/15/20 13:04 Dose: 1 mg Documented by: Dextrose/Lactated Ringer's () 1,000 mls @ 125 mls/hr IV .Q8H [facility] Last Admin: 10/15/20 07:26 Dose: 125 mls/hr Documented by: Famotidine 20 mg/ Sodium (Chloride) 10 mls @ 300 mls/hr IV Q12 [facility] Last Infusion: 10/15/20 09:04 Dose: Infused Documented by: Insulin Human Lispro (Insulin Lispro 100 Unit/Ml Insuln.Pen) 0 unit SC Q6H [facility]; Protocol Last Admin: 10/15/20 11:52 Dose: 1 u Documented by: Ondansetron HCl (Ondansetron 4 Mg/2 Ml Vial) 4 mg IV Q8H PRN PRN PRN Reason: NAUSEA/VOMITING Last Admin: 10/13/20 14:00 Dose: 4 mg Documented by: Promethazine HCl (Promethazine 25 Mg/Ml Syringe) 12.5 mg IV Q6H PRN PRN PRN Reason: NAUSEA/VOMITING Last Admin: 10/13/20 18:51 Dose: 12.5 mg Documented by: Sodium Chloride (0.9% Saline Lock 10 Ml Syringe) 10 - 40 ml IV UD PRN PRN Reason: SALINE FLUSH Last Admin: 10/15/20 07:17 Dose: 10 ml Documented by: Throat Lozenges (Benzocaine/Menthol 1 Lozenge) 1 - 2 lozenge MUCOUS MEM Q2H PRN PRN PRN Reason: SORE THROAT Last Admin: 10/15/20 13:09 Dose: 1 lozenge Documented by: Assessment/Plan This patient was seen in conjunction with DIRECTOR BUSINESS DEVELOPMENT, Farzana. I have independently interviewed and examined the patient and reviewed pertinent history, examination findings, laboratory and plan of management. I have reviewed the note and agree with the documented findings with the few additional points. In brief, patient is a 55-year-old gentleman with significant past surgical history of colon cancer status post right hemicolectomy with mets to liver status post 2 tumor resections, lungs and retroperitoneal lymph nodes is being admitted for small bowel obstruction with transition point in right upper quadrant. Currently on conservative management with NG tube aspirate, IV fluid. Small bowel obstruction seems adhesions from previous surgery.The patient is passing flatus although not good bowel movement. Abdominal distention is less. Repeat KUB shows colon Feces. CT abdomen done with IV contrast without oral contrast reported partial distal small bowel obstruction with zone of transition in the right upper quadrant. Postop fluid in the right hepatic lobe surgical site and small ascites along paracolic catheter. Partial atelectasis of right posterior lung. 10/15: Patient had bowel movement after abdominal suppository. Abdominal distention is less. KUB ordered. Discussed with the surgeon. K3.3. Potassium is getting replaced. Magnesium 1.9 Pancytopenia secondary to chemotherapy and colon cancer: Repeat labs did not show much change. Platelet count is stable in 60,000s. Does not need blood transfusion product. 10/15: WBC count, H&H and platelet count, all 3 cell lines are stable. He has other comorbidities bipolar disorder, diabetes mellitus type 2, dyslipidemia, BPH. Multiple comorbidities puts high risk for surgical intervention and complicates the present care and expect difficult and delay recovery I have discussed my assessment with Farzana MONTAÑO and orders have been reviewed. Clinical Impression(s) from Imaging Studies Abdomen/Pelvis CT 10/12/20 09:14 IMPRESSION: 1. Suspicious partial distal small bowel obstruction with a zone of transition located in the right upper quadrant of the abdomen. This may be due to post operative adhesion. 2. Postoperative fluid in the right hepatic lobe surgical site and abnormal hypodense area behind the surgical clips in the right lower hepatic lobe. This hypodense area is uncertain for mass. 3. Small ascites along the paracolic gutters. 4. Partial atelectases with air bronchograms in the right posterior lung base and small right posterior pleural fluid. Superimposed pneumonia is worrisome. 5. No other additional findings or changes when compared to 02/12/2017. Chest X-Ray 10/12/20 12:37 IMPRESSION: The tip of the nasogastric tube is in the body of the stomach. Increased markings are seen at the right lung base and lingular segment of the left upper lobe suggestive of early infiltrates. KUB X-Ray 10/13/20 08:11 IMPRESSION: No definite acute abnormality. No definite evidence for obstruction. Abdomen X-Ray 10/14/20 05:55 IMPRESSION: No acute abdominal abnormality is radiographically apparent. Gastric tube in place. Inpatient E&M: 48446 [facility] Hosp L2
--- NOTE | 2020-10-15 11:23 | RAD_ITS ---
STUDY: X-RAY - ABDOMEN/PELVIS REASON FOR EXAM: Male, 55 years old. Small bowel obstruction. TECHNIQUE: Two AP supine views of the abdomen and pelvis. COMPARISON: Abdomen, 10/14/2020. FINDINGS: The lung bases are suboptimally visualized. There is an NG tube extending downward into the body of the stomach. There is an unremarkable bowel gas pattern. Oral contrast is seen in the transverse and descending colon This has decreased from the previous study. There is no small bowel dilatation or evidence of obstruction. There is no demonstrated free abdominal air. The visualized liver, spleen and kidneys are grossly normal in size and morphology. Multiple surgical clips in the right upper quadrant. Normal soft tissue structures. Stable osseous findings. RAD/Abdomen Single View (Portable) IMPRESSION: No acute intra-abdominal process or major interval change. Electronically Signed: Elijah Read DO at 18:03 EST Tel [phone], Service support ,
--- NOTE | 2020-10-15 11:39 | CASEMGMT ---
Social Work Note SW placed green sheet on chart for Palliative Care in the event pt is able to discharge home over the weekend. [facility] will need to be called and faxed discharge paperwork once pt is discharged. Martha Flannery RAMP MANAGER, MANAGER INPATIENT
[2020-10-15 17:45] LABS: Bedside Glucose 164 mg/dL (70-110)
[2020-10-15] MEDS: carBAMazepine 200 MG/10 ML UDC 400 MG NG (21:29)
[2020-10-15] MEDS: carBAMazepine 200 MG/10 ML UDC NG (21:29)
[2020-10-15 22:21] LABS: Bedside Glucose 173 mg/dL (70-110)
[2020-10-15 23:45] LABS: Bedside Glucose 198 mg/dL (70-110)
[2020-10-16] VITALS (9 sets, daily range): BP systolic 129–153; BP diastolic 69–72; PULSE 68–104; RESP 16–18; TEMP 36.6–36.8; O2SAT 97–98
[2020-10-16] MEDS: Dextrose 5%-Lactated Ringers 1,000 ML 125 ML IV ×3 (05:15→19:23)
[2020-10-16] MEDS: carBAMazepine 200 MG/10 ML UDC NG ×3 (05:17→21:35)
[2020-10-16] MEDS: Insulin Lispro 100 UNIT/ML INSULN.PEN SC ×4 (06:10→21:38)
[2020-10-16 06:21] LABS: Bedside Glucose 199 mg/dL (70-110)
[2020-10-16 06:23] LABS: Basophil# 0.01 X10^3/uL; Basophil% 0.4 % (0-1); Eosinophil# 0.12 X10^3/uL; Eosinophils% 4.3 % (0-5); Hematocrit 32.3 % (40-54); Lymphocyte % 14.4 % (19-41); Mean Corpuscular Hgb 29.1 pg (27.0-32.0); Mean Corpuscular Volume 93.9 fL (80-94); Mean Platelet Vol. 10.1 fl (6.2-12.0); Monocyte# 0.27 X10^3/uL; Monocyte% 9.7 % (0-10); NRBC Flagged by Analyzer 0 % (0-5); Neutrophil # 1.95 X10^3/uL (2.7-7.7); Neutrophil % 70.1 % (47-70); POSITIVE COUNT YES; POSITIVE DIFFERENTIAL YES; Platelet Count 69 K/mm3 (150-450); RBC Distribution Width CV 14.1 % (11.6-14.6); RBC Distribution Width SD 47.4 fl (35.1-43.9); Red Blood Count 3.44 M/mm3 (4.6-6.2); White Blood Count 2.8 K/mm3 (4.4-11.0)
[2020-10-16 06:42] LABS: Differential Indicated SCAN CRITERIA MET
[2020-10-16 06:44] LABS: Anion Gap 3 (5-15); BUN 6 mg/dL (7-18); BUN/Creat Ratio 10.8 RATIO (10-20); Chloride 111 mmol/L (98-107); Creatinine, Serum 0.56 mg/dL (0.70-1.30); EST Glomerular Filtration Rate 160 mL/min (>60); Est Glom Filt Rate - Afr Amer 194 mL/min (>60); Estimated Creatinine Clearance 131.33 ml/min; Glucose 192 mg/dL (74-106); Potassium 3.7 mmol/L (3.5-5.1); Sodium Level 141 mmol/L (136-145)
--- NOTE | 2020-10-16 08:28 | PN.SURG_ITS ---
Patient Problems: Active and Suspected Problems Small bowel obstruction (Acute) Subjective: Patient sleeping comfortably. Patient reports no real flatus today or last night. Objective: Abdomen is soft no rebound guarding or peritoneal signs. - Physical Exam Vitals/I&O's: Vital Signs Temp Pulse Resp BP Pulse Ox 98.2 F 82 18 153/69 H 97 10/16/20 02:09 10/16/20 04:03 10/16/20 02:09 10/16/20 02:09 10/16/20 02:09 Oxygen Delivery Method Room Air Weight: 179 lb 3.773 oz Body Mass Index (BMI) 28.9 Finger Stick Blood Glucose 338 Intake and Output for Last 24 Hours 10/14/20 10/15/20 10/16/20 23:59 23:59 23:59 Intake Total 3092.09 / 3092.09 4103.33 / 4103.33 746.67 / 746.67 Output Total 2350 / 2350 2150 / 2150 750 / 750 Balance 742.09 / 742.09 1953.33 / 1953.33 -3.33 / -3.33 Laboratory Results 10/15/20 05:44: Phosphorus 2.6, Magnesium 1.9 10/15/20 11:51: POC Glucose 164 H 10/15/20 17:36: POC Glucose 173 H 10/15/20 23:28: POC Glucose 198 H 10/16/20 05:29: WBC 2.8 L, RBC 3.44 L, Hgb 10.0 L, Hct 32.3 L, MCV 93.9, MCH 29.1, MCHC 31.0 L, RDW Std Deviation 47.4 H, RDW Coeff of Roland 14.1, Plt Count 69 L, MPV 10.1, Immature Gran % (Auto) 1.100 H, Neut % (Auto) 70.1 H, Lymph % (Auto) 14.4 L, Daniels % (Auto) 9.7, Eos % (Auto) 4.3, Baso % (Auto) 0.4, Absolute Neuts (auto) 2.0, Absolute Lymphs (auto) 0.40 L, Nucleated RBC % 0 10/16/20 05:29: Sodium 141, Potassium 3.7, Chloride 111 H, Carbon Dioxide 27.0, Anion Gap 3 L, BUN 6 L, Creatinine 0.56 L, Estim Creat Clear Calc 131.33, Est GFR (MDRD) Af Amer 194, Est GFR (MDRD) Non-Af 160, BUN/Creatinine Ratio 10.8, Glucose 192 H, Calcium 8.0 L 10/16/20 06:09: POC Glucose 199 H Current Medications Albuterol Sulfate (Albuterol 2.5 Mg/3 Ml Vial.Neb.) 2.5 mg INHALATION Q2H PRN PRN PRN Reason: Dyspnea, wheezing Carbamazepine (Carbamazepine 200 Mg/10 Ml Udc) 200 mg NG TID [facility] Last Admin: 10/16/20 05:17 Dose: 200 mg Documented by: Carbamazepine (Carbamazepine 200 Mg/10 Ml Udc) 400 mg NG QHS [facility] Last Admin: 10/15/20 21:29 Dose: 400 mg Documented by: Hydralazine HCl (Hydralazine 20 Mg/Ml Vial) 10 mg IV Q4H PRN PRN PRN Reason: SBP > 160 Hydromorphone HCl (Hydromorphone 1 Mg/Ml Syringe) 1 mg IV Q4H PRN PRN PRN Reason: Pain Score 6-10 Last Admin: 10/15/20 21:20 Dose: 1 mg Documented by: Dextrose/Lactated Ringer's () 1,000 mls @ 125 mls/hr IV .Q8H [facility] Last Admin: 10/16/20 05:15 Dose: 125 mls/hr Documented by: Famotidine 20 mg/ Sodium (Chloride) 10 mls @ 300 mls/hr IV Q12 [facility] Last Infusion: 10/15/20 21:32 Dose: Infused Documented by: Insulin Human Lispro (Insulin Lispro 100 Unit/Ml Insuln.Pen) 0 unit SC Q6H [facility]; Protocol Last Admin: 10/16/20 06:10 Dose: 1 u Documented by: Ondansetron HCl (Ondansetron 4 Mg/2 Ml Vial) 4 mg IV Q8H PRN PRN PRN Reason: NAUSEA/VOMITING Last Admin: 10/13/20 14:00 Dose: 4 mg Documented by: Promethazine HCl (Promethazine 25 Mg/Ml Syringe) 12.5 mg IV Q6H PRN PRN PRN Reason: NAUSEA/VOMITING Last Admin: 10/13/20 18:51 Dose: 12.5 mg Documented by: Sodium Chloride (0.9% Saline Lock 10 Ml Syringe) 10 - 40 ml IV UD PRN PRN Reason: SALINE FLUSH Last Admin: 10/15/20 21:20 Dose: 10 ml Documented by: Throat Lozenges (Benzocaine/Menthol 1 Lozenge) 1 - 2 lozenge MUCOUS MEM Q2H PRN PRN PRN Reason: SORE THROAT Last Admin: 10/15/20 23:46 Dose: 1 lozenge Documented by: Medical Necessity - Tobacco Use Smoking Status: Former smoker Tobacco Use: Cigarettes Assessment/Plan All Active Problems Small bowel obstruction (Acute) Slowly resolving partial small bowel obstruction. NG tube output has decreased. Await real bowel function to return. Inpatient E&M: 65260 [facility] Hosp L2
[2020-10-16 09:12] LABS: Differential Comment SCANNED; Platelet Estimate MOD DEC (ADEQ)
--- NOTE | 2020-10-16 09:39 | PCM.PROGNOTE ---
<Farzana Carmona DEPARTMENT CLINICIAN - Last Filed: 10/16/20 09:58> Patient Problems: Active and Suspected Problems Small bowel obstruction (Acute) Subjective: Patient seen and examined. Reports he had bowel movement yesterday following suppository. Patient did not tolerate clamping of NG last night. No flatus today. Denies abdominal pain. - Physical Exam Vitals/I&O's: Vital Signs Temp Pulse Resp BP Pulse Ox 98.2 F 82 18 153/69 H 97 10/16/20 02:09 10/16/20 04:03 10/16/20 02:09 10/16/20 02:09 10/16/20 02:09 Oxygen Delivery Method Room Air Weight: 179 lb 3.773 oz Body Mass Index (BMI) 28.9 Finger Stick Blood Glucose 338 Intake and Output for Last 24 Hours 10/14/20 10/15/20 10/16/20 23:59 23:59 23:59 Intake Total 3092.09 / 3092.09 4103.33 / 4103.33 746.67 / 746.67 Output Total 2350 / 2350 2150 / 2150 750 / 750 Balance 742.09 / 742.09 1953.33 / 1953.33 -3.33 / -3.33 General: Alert, Oriented x3, Cooperative HEENT: Atraumatic, PERRLA, EOMI, Normocephalic Neck: Supple, No JVD, Negative Carotid Bruits Lungs: Clear to auscultation, Normal air movement Cardiovascular: Regular rate, No murmurs Abdomen: Bowel Sounds Present, Soft, Non Tender, Distended Extremities: No clubbing, No cyanosis, No edema, Capillary Refill Less than 3 Seconds Skin: No rashes, No breakdown Musculoskeletal: No Tenderness to Palpation of Joints or Extremities Neurological: Cranial nerves II-XII grossly intact, Neuro grossly intact Psych/Mental Status: Normal Affect, Appropriate Laboratory Results 10/15/20 11:51: POC Glucose 164 H 10/15/20 17:36: POC Glucose 173 H 10/15/20 23:28: POC Glucose 198 H 10/16/20 05:29: WBC 2.8 L, RBC 3.44 L, Hgb 10.0 L, Hct 32.3 L, MCV 93.9, MCH 29.1, MCHC 31.0 L, RDW Std Deviation 47.4 H, RDW Coeff of Roland 14.1, Plt Count 69 L, MPV 10.1, Immature Gran % (Auto) 1.100 H, Neut % (Auto) 70.1 H, Lymph % (Auto) 14.4 L, [place] % (Auto) 9.7, Eos % (Auto) 4.3, Baso % (Auto) 0.4, Absolute Neuts (auto) 2.0, Absolute Lymphs (auto) 0.40 L, Nucleated RBC % 0, Differential Comment SCANNED, Diff Path Review March foll, Platelet Estimate MOD 10/16/20 05:29: Sodium 141, Potassium 3.7, Chloride 111 H, Carbon Dioxide 27.0, Anion Gap 3 L, BUN 6 L, Creatinine 0.56 L, Estim Creat Clear Calc 131.33, Est GFR (MDRD) Af Amer 194, Est GFR (MDRD) Non-Af 160, BUN/Creatinine Ratio 10.8, Glucose 192 H, Calcium 8.0 L 10/16/20 06:09: POC Glucose 199 H Current Medications Albuterol Sulfate (Albuterol 2.5 Mg/3 Ml Vial.Neb.) 2.5 mg INHALATION Q2H PRN PRN PRN Reason: Dyspnea, wheezing Carbamazepine (Carbamazepine 200 Mg/10 Ml Udc) 200 mg NG TID [facility] Last Admin: 10/16/20 05:17 Dose: 200 mg Documented by: Carbamazepine (Carbamazepine 200 Mg/10 Ml Udc) 400 mg NG QHS [facility] Last Admin: 10/15/20 21:29 Dose: 400 mg Documented by: Hydralazine HCl (Hydralazine 20 Mg/Ml Vial) 10 mg IV Q4H PRN PRN PRN Reason: SBP > 160 Hydromorphone HCl (Hydromorphone 1 Mg/Ml Syringe) 1 mg IV Q4H PRN PRN PRN Reason: Pain Score 6-10 Last Admin: 10/15/20 21:20 Dose: 1 mg Documented by: Dextrose/Lactated Ringer's () 1,000 mls @ 125 mls/hr IV .Q8H [facility] Last Admin: 10/16/20 05:15 Dose: 125 mls/hr Documented by: Famotidine 20 mg/ Sodium (Chloride) 10 mls @ 300 mls/hr IV Q12 [facility] Last Infusion: 10/15/20 21:32 Dose: Infused Documented by: Insulin Human Lispro (Insulin Lispro 100 Unit/Ml Insuln.Pen) 0 unit SC Q6H [facility]; Protocol Last Admin: 10/16/20 06:10 Dose: 1 u Documented by: Ondansetron HCl (Ondansetron 4 Mg/2 Ml Vial) 4 mg IV Q8H PRN PRN PRN Reason: NAUSEA/VOMITING Last Admin: 10/13/20 14:00 Dose: 4 mg Documented by: Promethazine HCl (Promethazine 25 Mg/Ml Syringe) 12.5 mg IV Q6H PRN PRN PRN Reason: NAUSEA/VOMITING Last Admin: 10/13/20 18:51 Dose: 12.5 mg Documented by: Sodium Chloride (0.9% Saline Lock 10 Ml Syringe) 10 - 40 ml IV UD PRN PRN Reason: SALINE FLUSH Last Admin: 10/15/20 21:20 Dose: 10 ml Documented by: Throat Lozenges (Benzocaine/Menthol 1 Lozenge) 1 - 2 lozenge MUCOUS MEM Q2H PRN PRN PRN Reason: SORE THROAT Last Admin: 10/15/20 23:46 Dose: 1 lozenge Documented by: Medical Necessity - Tobacco Use Smoking Status: Former smoker Tobacco Use: Cigarettes Assessment/Plan All Active Problems Small bowel obstruction (Acute) 1. Small bowel obstruction, history of colon cancer status post resection- general surgery following. NG in place. N.p.o., IV fluids. Patient had bowel movement following Dulcolax suppository. However, he did not tolerate clamping of NG as he developed nausea/vomiting. Continue NG to intermittent suction. 2. Metastatic colon cancer-mets to liver, lungs, retroperitoneal lymph nodes status post colon resection and liver resection-following with oncology. 3. Type 2 diabetes [id number] with sliding scale insulin. 4. Hyperlipidemia- statin on hold. 5. BPH-on Flomax, resume when able to tolerate oral intake. 6. Pancytopenia-secondary to #2. 7. Bipolar disorder-resume home regimen when able to tolerate oral intake. DVT prophylaxis-SCDs This patient was seen by AMY Noland under the supervision of Dr. Bernal. <Melo Bernal - Last Filed: 10/16/20 15:02> Objective: Patient moved bowels after Dulcolax suppository yesterday. Patient had 4 times bowel movement today. Initial 2 were small and and then later 2 were large, adequate and well formed. No blood or brown stool. Yesterday, patient could not tolerate clamping of NG tube and felt then NG tube connected to suction. Nasogastric suction source about 500 mL bilious aspirate. Physical exam General: Alert, Oriented x3, Cooperative HEENT: Atraumatic, PERRLA, EOMI, Normocephalic Oral: No Gingival or Mucosal Lesions/ Ulcerations Neck: Supple, No JVD, Negative Carotid Bruits Lungs: Air entry diminished in bilateral lung bases. No crepitation/rhonchi Cardiovascular: Regular rate, Regular Rhythm, Normal S1, Normal S2, No murmurs Abdomen: Soft, bowel sounds present. No tenderness or distention. No palpable mass : No renal angle tenderness. No suprapubic tenderness. Extremities: No edema, Capillary Refill Less than 3 Seconds Skin: No rashes, No breakdown Musculoskeletal: No Tenderness to Palpation of Joints or Extremities Neurological: Cranial nerves II-XII grossly intact, Deep Tendon Reflexes 2+/4 and Symmetrical, Neuro grossly intact Psych/Mental Status: Normal Affect, Appropriate. - Physical Exam Vitals/I&O's: Vital Signs Temp Pulse Resp BP Pulse Ox 97.8 F 80 18 129/70 H 98 10/16/20 08:10 10/16/20 08:10 10/16/20 09:00 10/16/20 08:10 10/16/20 08:10 Oxygen Delivery Method Room Air Weight: 179 lb 3.773 oz Body Mass Index (BMI) 28.9 Finger Stick Blood Glucose 338 Intake and Output for Last 24 Hours 10/14/20 10/15/20 10/16/20 23:59 23:59 23:59 Intake Total 3092.09 / 3092.09 4103.33 / 4103.33 1778.34 / 1778.34 Output Total 2350 / 2350 2150 / 2150 750 / 750 Balance 742.09 / 742.09 1953.33 / 1953.33 1028.34 / 1028.34 Laboratory Results 10/15/20 11:51: POC Glucose 164 H 10/15/20 17:36: POC Glucose 173 H 10/15/20 23:28: POC Glucose 198 H 10/16/20 05:29: WBC 2.8 L, RBC 3.44 L, Hgb 10.0 L, Hct 32.3 L, MCV 93.9, MCH 29.1, MCHC 31.0 L, RDW Std Deviation 47.4 H, RDW Coeff of Roland 14.1, Plt Count 69 L, MPV 10.1, Immature Gran % (Auto) 1.100 H, Neut % (Auto) 70.1 H, Lymph % (Auto) 14.4 L, [place] % (Auto) 9.7, Eos % (Auto) 4.3, Baso % (Auto) 0.4, Absolute Neuts (auto) 2.0, Absolute Lymphs (auto) 0.40 L, Nucleated RBC % 0, Differential Comment SCANNED, Diff Path Review March, Platelet Estimate MOD 10/16/20 05:29: Sodium 141, Potassium 3.7, Chloride 111 H, Carbon Dioxide 27.0, Anion Gap 3 L, BUN 6 L, Creatinine 0.56 L, Estim Creat Clear Calc 131.33, Est GFR (MDRD) Af Amer 194, Est GFR (MDRD) Non-Af 160, BUN/Creatinine Ratio 10.8, Glucose 192 H, Calcium 8.0 L 10/16/20 06:09: POC Glucose 199 H Current Medications Albuterol Sulfate (Albuterol 2.5 Mg/3 Ml Vial.Neb.) 2.5 mg INHALATION Q2H PRN PRN PRN Reason: Dyspnea, wheezing Carbamazepine (Carbamazepine 200 Mg/10 Ml Udc) 200 mg NG TID [facility] Last Admin: 10/16/20 13:11 Dose: 200 mg Documented by: Carbamazepine (Carbamazepine 200 Mg/10 Ml Udc) 400 mg NG QHS [facility] Last Admin: 10/15/20 21:29 Dose: 400 mg Documented by: Hydralazine HCl (Hydralazine 20 Mg/Ml Vial) 10 mg IV Q4H PRN PRN PRN Reason: SBP > 160 Hydromorphone HCl (Hydromorphone 1 Mg/Ml Syringe) 1 mg IV Q4H PRN PRN PRN Reason: Pain Score 6-10 Last Admin: 10/15/20 21:20 Dose: 1 mg Documented by: Dextrose/Lactated Ringer's () 1,000 mls @ 125 mls/hr IV .Q8H [facility] Last Admin: 10/16/20 13:11 Dose: 125 mls/hr Documented by: Famotidine 20 mg/ Sodium (Chloride) 10 mls @ 300 mls/hr IV Q12 [facility] Last Infusion: 10/16/20 10:54 Dose: Infused Documented by: Insulin Human Lispro (Insulin Lispro 100 Unit/Ml Insuln.Pen) 0 unit SC Q6H [facility]; Protocol Last Admin: 10/16/20 12:03 Dose: 1 u Documented by: Ondansetron HCl (Ondansetron 4 Mg/2 Ml Vial) 4 mg IV Q8H PRN PRN PRN Reason: NAUSEA/VOMITING Last Admin: 10/13/20 14:00 Dose: 4 mg Documented by: Promethazine HCl (Promethazine 25 Mg/Ml Syringe) 12.5 mg IV Q6H PRN PRN PRN Reason: NAUSEA/VOMITING Last Admin: 10/13/20 18:51 Dose: 12.5 mg Documented by: Sodium Chloride (0.9% Saline Lock 10 Ml Syringe) 10 - 40 ml IV UD PRN PRN Reason: SALINE FLUSH Last Admin: 10/15/20 21:20 Dose: 10 ml Documented by: Throat Lozenges (Benzocaine/Menthol 1 Lozenge) 1 - 2 lozenge MUCOUS MEM Q2H PRN PRN PRN Reason: SORE THROAT Last Admin: 10/16/20 12:02 Dose: 2 lozenge Documented by: Assessment/Plan This patient was seen in conjunction with DEPARTMENT CLINICIANFarzana. I have independently interviewed and examined the patient and reviewed pertinent history, examination findings, laboratory and plan of management. I have reviewed the note and agree with the documented findings with the few additional points. In brief, patient is a 55-year-old gentleman with significant past surgical history of colon cancer status post right hemicolectomy with mets to liver status post 2 tumor resections, lungs and retroperitoneal lymph nodes is being admitted for small bowel obstruction with transition point in right upper quadrant. Currently on conservative management with NG tube aspirate, IV fluid. Small bowel obstruction seems adhesions from previous surgery.The patient is passing flatus although not good bowel movement. Abdominal distention is less. Repeat KUB shows colon Feces. CT abdomen done with IV contrast without oral contrast reported partial distal small bowel obstruction with zone of transition in the right upper quadrant. Postop fluid in the right hepatic lobe surgical site and small ascites along paracolic catheter. Partial atelectasis of right posterior lung. 10/15: Patient had bowel movement after abdominal suppository. Abdominal distention is less. KUB ordered. Discussed with the surgeon. K3.3. Potassium is getting replaced. Magnesium 1.9 10/16: NG tube suction is decreased. Seen by Dr. Navarrete. After bowel movement, he ordered to discontinue NG tube and start clear liquid. Discussed with the nursing staff. Pancytopenia secondary to chemotherapy and colon cancer: Repeat labs did not show much change. Platelet count is stable in 60,000s. Does not need blood transfusion product. 10/15: WBC count, H&H and platelet count, all 3 cell lines are stable. 09/15: Not significant change in blood counts. He has other comorbidities bipolar disorder, diabetes mellitus type 2, dyslipidemia, BPH. Multiple comorbidities puts high risk for surgical intervention and complicates the present care and expect difficult and delay recovery I have discussed my assessment with DEPARTMENT CLINICIANFarzana and orders have been reviewed. Clinical Impression(s) from Imaging Studies Abdomen/Pelvis CT 10/12/20 09:14 IMPRESSION: 1. Suspicious partial distal small bowel obstruction with a zone of transition located in the right upper quadrant of the abdomen. This may be due to post operative adhesion. 2. Postoperative fluid in the right hepatic lobe surgical site and abnormal hypodense area behind the surgical clips in the right lower hepatic lobe. This hypodense area is uncertain for mass. 3. Small ascites along the paracolic gutters. 4. Partial atelectases with air bronchograms in the right posterior lung base and small right posterior pleural fluid. Superimposed pneumonia is worrisome. 5. No other additional findings or changes when compared to 02/12/2017. Chest X-Ray 10/12/20 12:37 IMPRESSION: The tip of the nasogastric tube is in the body of the stomach. Increased markings are seen at the right lung base and lingular segment of the left upper lobe suggestive of early infiltrates. KUB X-Ray 10/13/20 08:11 IMPRESSION: No definite acute abnormality. No definite evidence for obstruction. Abdomen X-Ray 10/14/20 05:55 IMPRESSION: No acute abdominal abnormality is radiographically apparent. Gastric tube in place. Inpatient E&M: 75310 Subs Hosp L2
[2020-10-16] MEDS: Famotidine 200 MG/20 ML MDV 20 MG in 0.9% Normal Saline (Pres. free 8 ML 300 MG IV ×2 (10:52→21:35)
[2020-10-16] MEDS: BENZOCAINE/MENTHOL 1 LOZENGE MUCOUS MEM (12:02)
[2020-10-16 16:26] LABS: Bedside Glucose 195 mg/dL (70-110)
[2020-10-16 18:46] LABS: Bedside Glucose 179 mg/dL (70-110)
[2020-10-16 21:35] LABS: Bedside Glucose 223 mg/dL (70-110)
[2020-10-16] MEDS: carBAMazepine 200 MG/10 ML UDC 400 MG NG (21:36)
--- NOTE | 2020-10-16 22:11 | NURSING ---
Pt called out and said he made a mess in the bathroom. When I opened the door to the bathroom he had liquid stool on the floor and all over the toilet. EVS called for mop up.
[2020-10-17 02:09] VITALS: BP 127/73; PULSE 82; RESP 18; TEMP 37.1; O2SAT 96
[2020-10-17] MEDS: Dextrose 5%-Lactated Ringers 1,000 ML 125 ML IV (02:12)
[2020-10-17 02:14] VITALS: PULSE 82
[2020-10-17] MEDS: Insulin Lispro 100 UNIT/ML INSULN.PEN SC (05:26)
[2020-10-17] MEDS: carBAMazepine 200 MG Tablet PO (05:26)
[2020-10-17 07:21] LABS: Bedside Glucose 259 mg/dL (70-110)
[2020-10-17 07:33] VITALS: PULSE 81
[2020-10-17 07:40] LABS: Absolute Lymphocyte Count 0.48 X10^3/uL (0.83-4.51); Absolute Neutrophil Count 1.7 X10^3/uL (2.0-7.7); Basophil# 0.01 X10^3/uL; Basophil% 0.4 % (0-1); Eosinophils% 3.9 % (0-5); Hematocrit 31.6 % (40-54); Hemoglobin 10.1 g/dL (13.0-16.5); Lymphocyte # 0.48 X10^3/ul (4.0); Lymphocyte % 18.8 % (19-41); Mean Corpuscular Hgb 29.6 pg (27.0-32.0); Mean Corpuscular Volume 92.7 fL (80-94); Mean Platelet Vol. 10.8 fl (6.2-12.0); Monocyte# 0.24 X10^3/uL; Monocyte% 9.4 % (0-10); NRBC Flagged by Analyzer 0 % (0-5); Neutrophil # 1.72 X10^3/uL (2.7-7.7); Neutrophil % 67.5 % (47-70); POSITIVE COUNT YES; POSITIVE DIFFERENTIAL YES; Platelet Count 75 K/mm3 (150-450); RBC Distribution Width CV 14.3 % (11.6-14.6); RBC Distribution Width SD 48.3 fl (35.1-43.9); Red Blood Count 3.41 M/mm3 (4.6-6.2); White Blood Count 2.6 K/mm3 (4.4-11.0)
[2020-10-17 07:54] LABS: Differential Indicated SCAN CRITERIA MET
[2020-10-17 08:11] LABS: Anion Gap 7 (5-15); BUN 5 mg/dL (7-18); BUN/Creat Ratio 8.8 RATIO (10-20); Chloride 108 mmol/L (98-107); Creatinine, Serum 0.57 mg/dL (0.70-1.30); EST Glomerular Filtration Rate 157 mL/min (>60); Est Glom Filt Rate - Afr Amer 190 mL/min (>60); Estimated Creatinine Clearance 129.03 ml/min; Glucose 211 mg/dL (74-106); Potassium 3.4 mmol/L (3.5-5.1); Sodium Level 141 mmol/L (136-145)
[2020-10-17 08:18] LABS: Differential Comment SCANNED
[2020-10-17 08:19] LABS: Platelet Estimate MOD DEC (ADEQ)
--- NOTE | 2020-10-17 09:57 | DCINST_ITS ---
- Discharge Diagnoses Current Active Problems: Current Active and Chronic Problems Small bowel obstruction (Acute) Neurogenic syncope (Chronic) DM type 2 (diabetes mellitus, type 2) (Chronic) Colon cancer (Chronic) Bipolar disorder (Chronic) Hyperlipidemia (Chronic) You will use the following diet at home:: Other - Diet as tolerated. Discharge Activity: Return to Normal Activity Call your doctor if you observe: Shortness of breath, Dizziness, Fainting spells, Chest pain Allergies/Adverse Reactions: Allergies amoxicillin trihydrate [From Augmentin] Allergy (Intermediate, Verified 10/12/20 09:) Swelling eszopiclone [From Lunesta] Allergy (Mild, Verified 10/12/20 09:) Rash tetracycline [Tetracycline] Allergy (Unknown, Verified 10/12/20 09:) Unknown aspirin [From Fiorinal] Allergy (Verified 10/12/20:) Unknown butalbital [From Fiorinal] Allergy (Verified 10/12/20:) Unknown caffeine [From Fiorinal] Allergy (Verified 10/12/20:) Unknown coconut Allergy (Verified 10/12/20:) Anaphylaxis coconut oil Allergy (Verified 10/12/20:) Anaphylaxis divalproex sodium [From Depakote] Allergy (Verified 10/12/20 09:) Unknown fludrocortisone acetate [From Florinef] Allergy (Verified 10/12/20 09:) Unknown ketorolac tromethamine [From Toradol] Allergy (Verified 10/12/20 09:) Unknown meperidine HCl [From Demerol] Allergy (Verified 10/12/20:) Swelling Penicillins Allergy (Verified 10/12/20:) Swelling potassium clavulanate [From Augmentin] Allergy (Verified 10/12/20 09:) Swelling sitagliptin phosphate [From Januvia] Allergy (Verified 10/12/20 09:) Other zolpidem tartrate [From Ambien] Allergy (Verified 10/12/20 09:) Unknown metformin Adverse Reaction (Mild, Verified 10/12/20 09:) Nausea doxycycline Adverse Reaction (Verified 10/12/20 09:) Unknown morphine Allergy (Severe, Uncoded 10/12/20 09:) Swelling Medications to take at Discharge Carbamazepine [Tegretol] 600 mg PO QHS 10/29/13 Carbamazepine [Tegretol] 400 mg PO BREAKFAST 09/10/14 Pregabalin [Lyrica] 150 mg PO BID 09/11/14 Insulin Aspart [Novolog Flexpen] 18 units SC TIDCM 01/27/15 Lorazepam [Ativan] 2 mg PO Q8H PRN PRN 05/08/15 Omeprazole [Prilosec] 40 mg PO DAILY 12/05/16 Ondansetron HCl [Zofran] 8 mg PO Q8H PRN PRN 12/05/16 Tamsulosin HCl [Flomax] 0.4 mg PO QHS 12/05/16 Acetaminophen [Tylenol] 650 mg PO TID PRN 02/20/17 Cyclobenzaprine HCl 10 mg PO PRN PRN 01/08/18 Insulin Degludec [Tresiba Flextouch U-100] 80 unit SQ QHS 01/08/18 Metoclopramide [Reglan] 10 mg PO PRN PRN 01/08/18 Multivitamins,Therapeutic [Multivitamin] 1 tablet PO DAILY 01/08/18 Pyridoxine HCl (Vitamin B6) [B-6] 200 mg PO DAILY 01/08/18 Aspirin [Aspirin, Baby] 81 mg PO DAILY@0800 10/12/20 Dicyclomine HCl [Bentyl] 20 mg PO TIDAC 10/12/20 Furosemide 10 mg PO DAILY PRN PRN 10/12/20 Hydrocodone/Acetaminophen [[place] 10-325 Tablet] 1 - 2 ea PO Q6H PRN PRN 10/12/20 Hydromorphone HCl [Dilaudid] 2 mg PO Q4H PRN PRN 10/12/20 Potassium Chloride 10 meq PO DAILY 10/12/20 Primary Care Physician: Elizabeth Rodriguez MD [Primary Care Provider] - Please follow up with your Primary Care Physician in: 1 Week Test Results: Test results from this visit will be discussed in further detail at your follow- up appointment, if applicable. Please Follow Up With: Follow up with oncology as scheduled Proposed Discharge Date: 10/17/20
--- NOTE | 2020-10-17 10:10 | DS.PCM_ITS ---
<Farzana Carmona COMPLIANCE AND CONTROL ANALYST - Last Filed: 10/17/20 10:19> Discharge Date and Diagnosis - Problem List Patient Problems: Active and Suspected Problems Small bowel obstruction (Acute) Date of Admission: 10/12/20 Date of Discharge: 10/17/20 - Primary Discharge Diagnosis Acute Problems: Active Problems 1. Small bowel obstruction, history of colon cancer status post resection 2. Metastatic colon cancer-mets to liver, lungs, retroperitoneal lymph nodes status post colon resection and liver resection 3. Type 2 diabetes mellitus 4. Hyperlipidemia 5. BPH 6. Pancytopenia-secondary to #2. 7. Bipolar disorder - Secondary Discharge Diagnosis Chronic Problems: Chronic Problems Neurogenic syncope (Chronic) DM type 2 (diabetes mellitus, type 2) (Chronic) Colon cancer (Chronic) Bipolar disorder (Chronic) Hyperlipidemia (Chronic) Hospital Course and Treatment Imaging Results: Diagnostic Data Abdomen/Pelvis CT 10/12/20 09:14 IMPRESSION: 1. Suspicious partial distal small bowel obstruction with a zone of transition located in the right upper quadrant of the abdomen. This may be due to post operative adhesion. 2. Postoperative fluid in the right hepatic lobe surgical site and abnormal hypodense area behind the surgical clips in the right lower hepatic lobe. This hypodense area is uncertain for mass. 3. Small ascites along the paracolic gutters. 4. Partial atelectases with air bronchograms in the right posterior lung base and small right posterior pleural fluid. Superimposed pneumonia is worrisome. 5. No other additional findings or changes when compared to 02/12/2017. Electronically Signed: Rome Willson MD at 12:28 EST , Service support , Chest X-Ray 10/12/20 12:37 IMPRESSION: The tip of the nasogastric tube is in the body of the stomach. Increased markings are seen at the right lung base and lingular segment of the left upper lobe suggestive of early infiltrates. Electronically Signed: Owen Mark, at 14:06 EST , Service support , Abdomen X-Ray 10/14/20 05:55 IMPRESSION: No acute abdominal abnormality is radiographically apparent. Gastric tube in place. at 0522 Reported and signed by: Rhonda Nascimento MD Electronically Signed: Rhonda Nascimento MD at 5:22 EST Tel , Service support , KUB X-Ray 10/15/20 11:23 IMPRESSION: No acute intra-abdominal process or major interval change. Electronically Signed: Elijah RoroDO at 18:03 EST Tel [phone], Service support , Dr. Harper- General surgery Operations: None Procedures: None Summary of Care Provided: The patient is a 55 year old M admitted 10/12/2020 due to nausea and vomiting. 1. Small bowel obstruction, history of colon cancer status post resection- general surgery consulted during admission. NG removed 10/16/2020. Patient tolerating diet. Multiple bowel movements. Patient follows with [facility], c ontinue outpatient follow-up. 2. Metastatic colon cancer-mets to liver, lungs, retroperitoneal lymph nodes status post colon resection and liver resection-following with oncology. 3. Type 2 diabetes mellitus-continue home insulin regimen. 4. Hyperlipidemia-continue statin. 5. BPH-on Flomax. 6. Pancytopenia-secondary to #2. 7. Bipolar disorder-continue home Tegretol. General: Alert, Oriented x3, Cooperative HEENT: Atraumatic, PERRLA, EOMI, Normocephalic Neck: Supple, No JVD, Negative Carotid Bruits Lungs: Clear to auscultation, Normal air movement Cardiovascular: Regular rate, No murmurs Abdomen: Bowel Sounds Present, Soft, Non Tender, non-Distended Extremities: No clubbing, No cyanosis, No edema, Capillary Refill Less than 3 Seconds Skin: No rashes, No breakdown Musculoskeletal: No Tenderness to Palpation of Joints or Extremities Neurological: Cranial nerves II-XII grossly intact, Neuro grossly intact Psych/Mental Status: Normal Affect, Appropriate Patient seen and examined prior to discharge. Physical assessment as noted above. Patient is stable for discharge with follow up recommendations as noted above. This patient was seen by AMY Noland under the supervision of Dr. Bernal. Patient Problems: Active and Suspected Problems Small bowel obstruction (Acute) - Physical Exam Vitals/I&O's: Vital Signs Temp Pulse Resp BP Pulse Ox 98.7 F 81 18 127/73 H 96 10/17/20 02:09 10/17/20 07:33 10/17/20 02:09 10/17/20 02:09 10/17/20 02:09 Oxygen Delivery Method Room Air Weight: 179 lb 3.773 oz Body Mass Index (BMI) 28.9 Finger Stick Blood Glucose 338 Intake and Output for Last 24 Hours 10/15/20 10/16/20 10/17/20 23:59 23:59 23:59 Intake Total 4103.33 / 4103.33 3163.34 / 3163.34 1000 / 1000 Output Total 2150 / 2150 750 / 750 200 / 200 Balance 1953.33 / 1953.33 2413.34 / 2413.34 800 / 800 Laboratory Results 10/16/20 12:02: POC Glucose 179 H 10/16/20 16:08: POC Glucose 195 H 10/16/20 21:31: POC Glucose 223 H 10/17/20 05:18: POC Glucose 259 H 10/17/20 06:10: WBC 2.6 L, RBC 3.41 L, Hgb 10.1 L, Hct 31.6 L, MCV 92.7, MCH 29.6, MCHC 32.0, RDW Std Deviation 48.3 H, RDW Coeff of Roland 14.3, Plt Count 75 L , MPV 10.8, Immature Gran % (Auto) 0.000, Neut % (Auto) 67.5, Lymph % (Auto) 18.8 L, Steele % (Auto) 9.4, Eos % (Auto) 3.9, Baso % (Auto) 0.4, Absolute Neuts (auto) 1.7 L, Absolute Lymphs (auto) 0.48 L, Nucleated RBC % 0, Differential Comment SCANNED, Diff Path Review March, Platelet Estimate MOD DEC 10/17/20 06:10: Sodium 141, Potassium 3.4 L, Chloride 108 H, Carbon Dioxide 26.0, Anion Gap 7, BUN 5 L, Creatinine 0.57 L, Estim Creat Clear Calc 129.03, Est GFR (MDRD) Af Amer 190, Est GFR (MDRD) Non-Af 157, BUN/Creatinine Ratio 8.8 L, Glucose 211 H, Calcium 8.0 L Current Medications Albuterol Sulfate (Albuterol 2.5 Mg/3 Ml Vial.Neb.) 2.5 mg INHALATION Q2H PRN PRN PRN Reason: Dyspnea, wheezing Carbamazepine (Carbamazepine 200 Mg Tablet) 200 mg PO TID [facility] Last Admin: 10/17/20 05:26 Dose: 200 mg Documented by: Carbamazepine (Carbamazepine 200 Mg Tablet) 400 mg PO QHS [facility] Hydralazine HCl (Hydralazine 20 Mg/Ml Vial) 10 mg IV Q4H PRN PRN PRN Reason: SBP > 160 Hydromorphone HCl (Hydromorphone 1 Mg/Ml Syringe) 1 mg IV Q4H PRN PRN PRN Reason: Pain Score 6-10 Last Admin: 10/15/20 21:20 Dose: 1 mg Documented by: Famotidine 20 mg/ Sodium (Chloride) 10 mls @ 300 mls/hr IV Q12 [facility] Last Infusion: 10/16/20 21:45 Dose: Infused Documented by: Insulin Human Lispro (Insulin Lispro 100 Unit/Ml Insuln.Pen) 0 unit SC Q6H [facility]; Protocol Last Admin: 10/17/20 05:26 Dose: 2 u Documented by: Ondansetron HCl (Ondansetron 4 Mg/2 Ml Vial) 4 mg IV Q8H PRN PRN PRN Reason: NAUSEA/VOMITING Last Admin: 10/13/20 14:00 Dose: 4 mg Documented by: Promethazine HCl (Promethazine 25 Mg/Ml Syringe) 12.5 mg IV Q6H PRN PRN PRN Reason: NAUSEA/VOMITING Last Admin: 10/13/20 18:51 Dose: 12.5 mg Documented by: Sodium Chloride (0.9% Saline Lock 10 Ml Syringe) 10 - 40 ml IV UD PRN PRN Reason: SALINE FLUSH Last Admin: 10/15/20 21:20 Dose: 10 ml Documented by: Throat Lozenges (Benzocaine/Menthol 1 Lozenge) 1 - 2 lozenge MUCOUS MEM Q2H PRN PRN PRN Reason: SORE THROAT Last Admin: 10/16/20 12:02 Dose: 2 lozenge Documented by: Discharge Diet: Light diet - advance as tolerated Discharge Activity: Return to Normal Activity Call your doctor if you observe: Shortness of breath, Dizziness, Fainting spells, Chest pain Home Medications: Medications to take at Discharge Carbamazepine [Tegretol] 600 mg PO QHS 10/29/13 Carbamazepine [Tegretol] 400 mg PO BREAKFAST 09/10/14 Pregabalin [Lyrica] 150 mg PO BID 09/11/14 Insulin Aspart [Novolog Flexpen] 18 units SC TIDCM 01/27/15 Lorazepam [Ativan] 2 mg PO Q8H PRN PRN 05/08/15 Omeprazole [Prilosec] 40 mg PO DAILY 12/05/16 Ondansetron HCl [Zofran] 8 mg PO Q8H PRN PRN 12/05/16 Tamsulosin HCl [Flomax] 0.4 mg PO QHS 12/05/16 Acetaminophen [Tylenol] 650 mg PO TID PRN 02/20/17 Cyclobenzaprine HCl 10 mg PO PRN PRN 01/08/18 Insulin Degludec [Tresiba Flextouch U-100] 80 unit SQ QHS 01/08/18 Metoclopramide [Reglan] 10 mg PO PRN PRN 01/08/18 Multivitamins,Therapeutic [Multivitamin] 1 tablet PO DAILY 01/08/18 Pyridoxine HCl (Vitamin B6) [B-6] 200 mg PO DAILY 01/08/18 Aspirin [Aspirin, Baby] 81 mg PO DAILY@0800 10/12/20 Dicyclomine HCl [Bentyl] 20 mg PO TIDAC 10/12/20 Furosemide 10 mg PO DAILY PRN PRN 10/12/20 Hydrocodone/Acetaminophen [Yolo 10-325 Tablet] 1 - 2 ea PO Q6H PRN PRN 10/12/20 Hydromorphone HCl [Dilaudid] 2 mg PO Q4H PRN PRN 10/12/20 Potassium Chloride 10 meq PO DAILY 10/12/20 Primary Care Physician: Elizabeth Rodriguez MD [Primary Care Provider] - Please follow up with your Primary Care Physician in: 1 Week Please Follow Up With: Follow up with oncology as scheduled Disposition: Home Minutes spent on discharge:: 35 Patient Condition:: Stable Medical Necessity - Tobacco Use Smoking Status: Former smoker Tobacco Use: Cigarettes Meaningful Use Info Meaningful Use Diagnoses (Choose all that apply): None applicable <Melo Bernal - Last Filed: 10/17/20 12:18> Discharge Date and Diagnosis - Primary Discharge Diagnosis Acute Problems: Active Problems Small bowel obstruction (Acute) - Secondary Discharge Diagnosis Chronic Problems: Chronic Problems Neurogenic syncope (Chronic) DM type 2 (diabetes mellitus, type 2) (Chronic) Colon cancer (Chronic) Bipolar disorder (Chronic) Hyperlipidemia (Chronic) Hospital Course and Treatment Summary of Care Provided: This patient was seen in conjunction with COMPLIANCE AND CONTROL ANALYST, Farzana. I have independently interviewed and examined the patient and reviewed pertinent history, examination findings, laboratory and plan of management. I have reviewed the note and agree with the documented findings with the few additional points. In brief, patient is a 55-year-old gentleman with significant past surgical history of colon cancer status post right hemicolectomy with mets to liver status post 2 tumor resections, lungs and retroperitoneal lymph nodes is being admitted for small bowel obstruction with transition point in right upper quadrant. Currently on conservative management with NG tube aspirate, IV fluid. Small bowel obstruction seems adhesions from previous surgery.The patient is passing flatus although not good bowel movement. Abdominal distention is less. Repeat KUB shows colon Feces. CT abdomen done with IV contrast without oral contrast reported partial distal small bowel obstruction with zone of transition in the right upper quadrant. Postop fluid in the right hepatic lobe surgical site and small ascites along paracolic catheter. Patient had bowel movement. NG tube was removed on 10/16 and clear liquid diet was allowed. Patient tolerated well subsequently diet advanced to full liquid advised to keep it same today. Advance to soft diet for 3 days. Follow-up with Dr. Sanchez and surgeon in [facility]. Patient also available if he can follow Dr. Mattson. Colon cancer with pancytopenia: All 3 cell lines have been stable for last 3 days. He has other comorbidities bipolar disorder, diabetes mellitus type 2, dyslipidemia, BPH. Multiple comorbidities puts high risk for surgical intervention and complicates the present care and expect difficult and delay recovery Discharge medication reconciliation done. Discharge follow-up instructions completed. Discharge process discussed with the patient and all questions were answered to patient's satisfaction. Total time spent, exact 35 minutes on discharge meds reconciliation, examination, coordination of care with nurses and ancillary staff, review of imaging and blood test and discussion with the patient on follow-up instructions I have discussed my assessment with COMPLIANCE AND CONTROL ANALYSTFarzana and orders have been reviewed. [] Objective: Seen and examined. Patient had bowel movement and tolerated clear liquid diet. Advance to full liquid diet. Advised to keep full liquid today Physical exam General: Alert, Oriented x3, Cooperative HEENT: Atraumatic, PERRLA, EOMI, Normocephalic Oral: No Gingival or Mucosal Lesions/ Ulcerations Neck: Supple, No JVD, Negative Carotid Bruits Lungs: Air entry equal in bilateral lung bases. No crepitation/rhonchi Cardiovascular: Regular rate, Regular Rhythm, Normal S1, Normal S2, No murmurs Abdomen: Bowel Sounds Present, Soft, Non Tender, Non-Distended. No palpable mass : No renal angle tenderness. No suprapubic tenderness. Extremities: No edema, Capillary Refill Less than 3 Seconds Skin: No rashes, No breakdown Musculoskeletal: No Tenderness to Palpation of Joints or Extremities Neurological: Cranial nerves II-XII grossly intact, Deep Tendon Reflexes 2+/4 and Symmetrical, Neuro grossly intact Psych/Mental Status: Normal Affect, Appropriate. - Physical Exam Vitals/I&O's: Vital Signs Temp Pulse Resp BP Pulse Ox 97.9 F 95 18 137/81 H 98 10/17/20 11:24 10/17/20 11:24 10/17/20 11:24 10/17/20 11:24 10/17/20 11:24 Oxygen Delivery Method Room Air Weight: 179 lb 3.773 oz Body Mass Index (BMI) 28.9 Finger Stick Blood Glucose 338 Intake and Output for Last 24 Hours 10/15/20 10/16/20 10/17/20 23:59 23:59 23:59 Intake Total 4103.33 / 4103.33 3163.34 / 3163.34 1766.25 / 1766.25 Output Total 2150 / 2150 750 / 750 200 / 200 Balance 1953.33 / 1953.33 2413.34 / 2413.34 1566.25 / 1566.25 Laboratory Results 10/16/20 12:02: POC Glucose 179 H 10/16/20 16:08: POC Glucose 195 H 10/16/20 21:31: POC Glucose 223 H 10/17/20 05:18: POC Glucose 259 H 10/17/20 06:10: WBC 2.6 L, RBC 3.41 L, Hgb 10.1 L, Hct 31.6 L, MCV 92.7, MCH 29.6, MCHC 32.0, RDW Std Deviation 48.3 H, RDW Coeff of Roland 14.3, Plt Count 75 L , MPV 10.8, Immature Gran % (Auto) 0.000, Neut % (Auto) 67.5, Lymph % (Auto) 18.8 L, Steele % (Auto) 9.4, Eos % (Auto) 3.9, Baso % (Auto) 0.4, Absolute Neuts (auto) 1.7 L, Absolute Lymphs (auto) 0.48 L, Nucleated RBC % 0, Differential Comment SCANNED, Diff Path Review March, Platelet Estimate MOD 10/17/20 06:10: Sodium 141, Potassium 3.4 L, Chloride 108 H, Carbon Dioxide 26.0, Anion Gap 7, BUN 5 L, Creatinine 0.57 L, Estim Creat Clear Calc 129.03, Est GFR (MDRD) Af Amer 190, Est GFR (MDRD) Non-Af 157, BUN/Creatinine Ratio 8.8 L, Glucose 211 H, Calcium 8.0 L Inpatient E&M: 32228 Disch Hosp
[2020-10-17] MEDS: Famotidine 200 MG/20 ML MDV 20 MG in 0.9% Normal Saline (Pres. free 8 ML 330 MG IV (11:04)
[2020-10-17] MEDS: 0.9% Saline Lock 10 ML Syringe IV (11:06)
--- NOTE | 2020-10-17 11:09 | PCM.PN.SRG ---
Patient Problems: Active and Suspected Problems Small bowel obstruction (Acute) Subjective: Patient has been having regular bowel movements. He is not complaining of any abdominal pain. Objective: Abdomen is soft No rebound guarding or peritoneal signs are identified - Physical Exam Vitals/I&O's: Vital Signs Temp Pulse Resp BP Pulse Ox 98.7 F 81 18 127/73 H 96 10/17/20 02:09 10/17/20 07:33 10/17/20 02:09 10/17/20 02:09 10/17/20 02:09 Oxygen Delivery Method Room Air Weight: 179 lb 3.773 oz Body Mass Index (BMI) 28.9 Finger Stick Blood Glucose 338 Intake and Output for Last 24 Hours 10/15/20 10/16/20 10/17/20 23:59 23:59 23:59 Intake Total 4103.33 / 4103.33 3163.34 / 3163.34 1000 / 1000 Output Total 2150 / 2150 750 / 750 200 / 200 Balance 1953.33 / 1953.33 2413.34 / 2413.34 800 / 800 Laboratory Results 10/16/20 12:02: POC Glucose 179 H 10/16/20 16:08: POC Glucose 195 H 10/16/20 21:31: POC Glucose 223 H 10/17/20 05:18: POC Glucose 259 H 10/17/20 06:10: WBC 2.6 L, RBC 3.41 L, Hgb 10.1 L, Hct 31.6 L, MCV 92.7, MCH 29.6, MCHC 32.0, RDW Std Deviation 48.3 H, RDW Coeff of Roland 14.3, Plt Count 75 L, MPV 10.8, Immature Gran % (Auto) 0.000, Neut % (Auto) 67.5, Lymph % (Auto) 18.8 L, Wilcox % (Auto) 9.4, Eos % (Auto) 3.9, Baso % (Auto) 0.4, Absolute Neuts (auto) 1.7 L, Absolute Lymphs (auto) 0.48 L, Nucleated RBC % 0, Differential Comment SCANNED, Diff Path Review March, Platelet Estimate MOD 10/17/20 06:10: Sodium 141, Potassium 3.4 L, Chloride 108 H, Carbon Dioxide 26.0, Anion Gap 7, BUN 5 L, Creatinine 0.57 L, Estim Creat Clear Calc 129.03, Est GFR (MDRD) Af Amer 190, Est GFR (MDRD) Non-Af 157, BUN/Creatinine Ratio 8.8 L, Glucose 211 H, Calcium 8.0 L Current Medications Albuterol Sulfate (Albuterol 2.5 Mg/3 Ml Vial.Neb.) 2.5 mg INHALATION Q2H PRN PRN PRN Reason: Dyspnea, wheezing Carbamazepine (Carbamazepine 200 Mg Tablet) 200 mg PO TID [facility] Last Admin: 10/17/20 05:26 Dose: 200 mg Documented by: Carbamazepine (Carbamazepine 200 Mg Tablet) 400 mg PO QHS [facility] Heparin Sodium (Beef Lung) (Heparin Pf Lock 10 Units/Ml 50 Units/5 Ml Syringe) 50 units IV UD PRN PRN Reason: HEPARIN FLUSH Last Admin: 10/17/20 11:05 Dose: 50 units Documented by: Hydralazine HCl (Hydralazine 20 Mg/Ml Vial) 10 mg IV Q4H PRN PRN PRN Reason: SBP > 160 Hydromorphone HCl (Hydromorphone 1 Mg/Ml Syringe) 1 mg IV Q4H PRN PRN PRN Reason: Pain Score 6-10 Last Admin: 10/15/20 21:20 Dose: 1 mg Documented by: Famotidine 20 mg/ Sodium (Chloride) 10 mls @ 300 mls/hr IV Q12 [facility] Last Admin: 10/17/20 11:04 Dose: 330 mls/hr Documented by: Insulin Human Lispro (Insulin Lispro 100 Unit/Ml Insuln.Pen) 0 unit SC Q6H [facility]; Protocol Last Admin: 10/17/20 05:26 Dose: 2 u Documented by: Ondansetron HCl (Ondansetron 4 Mg/2 Ml Vial) 4 mg IV Q8H PRN PRN PRN Reason: NAUSEA/VOMITING Last Admin: 10/13/20 14:00 Dose: 4 mg Documented by: Promethazine HCl (Promethazine 25 Mg/Ml Syringe) 12.5 mg IV Q6H PRN PRN PRN Reason: NAUSEA/VOMITING Last Admin: 10/13/20 18:51 Dose: 12.5 mg Documented by: Sodium Chloride (0.9% Saline Lock 10 Ml Syringe) 10 - 40 ml IV UD PRN PRN Reason: SALINE FLUSH Last Admin: 10/17/20 11:06 Dose: 10 ml Documented by: Sodium Chloride (0.9% Nacl R Port Flush) 10 - 40 ml IV UD PRN PRN Reason: R PORT FLUSH Throat Lozenges (Benzocaine/Menthol 1 Lozenge) 1 - 2 lozenge MUCOUS MEM Q2H PRN PRN PRN Reason: SORE THROAT Last Admin: 10/16/20 12:02 Dose: 2 lozenge Documented by: Medical Necessity - Tobacco Use Smoking Status: Former smoker Tobacco Use: Cigarettes Assessment/Plan All Active Problems Small bowel obstruction (Acute) Patient is appropriate for discharge today Inpatient E&M: 12722 Subs Hosp L2
[2020-10-17 11:24] VITALS: BP 137/81; PULSE 95; RESP 18; TEMP 36.6; O2SAT 98
--- NOTE | 2020-10-17 12:51 | NURSING ---
lindsay from [facility] informed of pt's dc home for resumption of pallative services and DC instructions and summary faxed to their office
[2020-10-18 13:26] LABS: Pathologist Review Reviewed
[2020-10-18 13:34] LABS: Pathologist Review Reviewed
--- NOTE | 2020-10-19 13:52 | CASEMGMT ---
CATHLEEN CM DC PHONE CALL DC DATE: 10.17.2020 DC DISPOSITION: Home DC DIAGNOSIS: SBO LACE/STRATA: 05/02 F/U APPTS MADE PRIOR TO DC: no Attempted call to phone. messaging unavailable. Evelin JASONN [employer]ARM[employer] PICKING TECH
== END 2020-10-17 11:25 | disposition home or self-care (01) | DRG 388 ==
LOC: ED 10:10 → MS3 16:01
PROVIDERS: Nurse Practitioner Family; Physician Assistant; Admitting Provider Student in an Organized Health Care Education/Training Program; Emergency Provider Emergency Medicine; PCP Internal Medicine; Visit Provider Internal Medicine
DX: K56.51 Intestinal adhesions [bands], with partial obstruction (principal); D61.810 Antineoplastic chemotherapy induced pancytopenia; C19 Malignant neoplasm of rectosigmoid junction; C18.4 Malignant neoplasm of transverse colon; C77.2 Secondary and unspecified malignant neoplasm of intra-abdominal lymph nodes; C78.7 Secondary malignant neoplasm of liver and intrahepatic bile duct; C78.02 Secondary malignant neoplasm of left lung; C78.01 Secondary malignant neoplasm of right lung; T45.1X5A Adverse effect of antineoplastic and immunosuppressive drugs, initial encounter; E11.9 Type 2 diabetes mellitus without complications; E78.5 Hyperlipidemia, unspecified; N40.0 Benign prostatic hyperplasia without lower urinary tract symptoms; F31.9 Bipolar disorder, unspecified; Z90.49 Acquired absence of other specified parts of digestive tract; Z79.4 Long term (current) use of insulin; Z79.899 Other long term (current) drug therapy; Z87.891 Personal history of nicotine dependence
CPT/HCPCS: 36415; 71045; 74018; 74019; 74177; 80048; 80053; 80156; 82962; 83605; 83690; 83735; 84100; 85025; 85027; 87426; 94640; 97110; 97162; 99285; J7030; Q9967; A4216; J2405; J3490

== ENCOUNTER 2021-01-17 16:17 | Emergency (ER) | payer BC, MEDICARE, SELFPAY ==
[2020-10-12 16:45] VITALS: BMI 28.9
[2021-01-17 16:19] VITALS: BP 155/85; PULSE 102; RESP 17; TEMP 36.6; O2SAT 98; BMI 31.1
[2021-01-17 17:40] LABS: Absolute Lymphocyte Count 0.33 X10^3/uL (0.83-4.51); Absolute Neutrophil Count 2.1 X10^3/uL (2.0-7.7); Basophil# 0.01 X10^3/uL; Basophil% 0.4 % (0-1); Eosinophil# 0.06 X10^3/uL; Eosinophils% 2.2 % (0-5); Hematocrit 30.4 % (40-54); Hemoglobin 9.8 g/dL (13.0-16.5); Lymphocyte # 0.33 X10^3/ul (4.0); Mean Corp Hgb Conc 32.2 g/dL (32-36); Mean Corpuscular Hgb 30.7 pg (27.0-32.0); Mean Corpuscular Volume 95.3 fL (80-94); Mean Platelet Vol. 10.7 fl (6.2-12.0); Monocyte# 0.23 X10^3/uL; Monocyte% 8.4 % (0-10); NRBC Flagged by Analyzer 0 % (0-5); Neutrophil # 2.11 X10^3/uL (2.7-7.7); Neutrophil % 76.6 % (47-70); POSITIVE COUNT YES; POSITIVE DIFFERENTIAL YES; Platelet Count 65 K/mm3 (150-450); RBC Distribution Width CV 14.3 % (11.6-14.6); RBC Distribution Width SD 49.6 fl (35.1-43.9); Red Blood Count 3.19 M/mm3 (4.6-6.2); White Blood Count 2.8 K/mm3 (4.4-11.0)
[2021-01-17 17:41] LABS: Differential Indicated SCAN CRITERIA MET; International Normalized Ratio 1.2; Prothrombin Time (Protime)PT. 14.3 SECONDS (11.7-14.9)
[2021-01-17 17:52] LABS: ALB/GLOB Ratio 0.6 RATIO (0.9-2.4); AST(SGOT) 55 U/L (15-37); Alanine Aminotransfer ALT/SGPT 48 U/L (16-61); Albumin, Serum 2.6 g/dL (3.2-5.0); Alkaline Phosphatase 170 U/L (45-117); Anion Gap 5 (5-15); BUN 9 mg/dL (7-18); BUN/Creat Ratio 16.9 RATIO (10-20); Chloride 106 mmol/L (98-107); Creatinine, Serum 0.53 mg/dL (0.70-1.30); EST Glomerular Filtration Rate 169 mL/min (>60); Est Glom Filt Rate - Afr Amer 204 mL/min (>60); Estimated Creatinine Clearance 138.77 ml/min; Globulin 4.1 g/dL (2.2-4.2); Glucose 146 mg/dL (74-106); Potassium 4.1 mmol/L (3.5-5.1); Protein, Total 6.7 g/dL (6.4-8.2); Sodium Level 138 mmol/L (136-145)
[2021-01-17] MEDS: Lidocaine 2% (20 ml mdv) 20 ML Vial INFILT (19:47)
[2021-01-17 19:48] VITALS: BP 143/78; PULSE 99; RESP 18; O2SAT 98
[2021-01-17 20:14] VITALS: BP 138/77; PULSE 99; RESP 18; O2SAT 100
--- NOTE | 2021-01-17 22:13 | ED.DCSUM_ITS ---
History of Present Illness Chief Complaint: Abd Pain Informant: Patient, Significant Other Onset: Weeks - 1-2 Context: Gradual Onset Timing: Continuous Quality: tightness, pain Location: throughout abd Current Severity: Moderate Maximum Severity: Moderate Worsened by: bending over, breathing Relieved by: resting Associated Symptoms: a little sob due to abd tightness Narrative: Patient with a history of metastatic colon cancer, remotely he had resection of his colon/mass, and additionally had resection of metastases that were on his liver according to him and , and currently is undergoing chemotherapy after also having had some radiation treatment. He saw his oncologist today for weight gain of 15 or 16 pounds and progressive abdominal swelling over the past week or 2, was placed on Lasix and advised to come to the emergency department if it was really bothering him for evaluation to for a paracentesis. He denies any fevers or chills or rashes. None of his surgeries were in the past month or 2. Other than occasional nosebleeds, he denies bleeding from anywhere recently. - Past Medical History (1) Colon cancer Status: Chronic (2) Small bowel obstruction Status: Chronic (3) Bipolar disorder Status: Chronic (4) DM type 2 (diabetes mellitus, type 2) Status: Chronic (5) Hyperlipidemia Status: Chronic (6) Neurogenic syncope Status: Chronic Past Medical History - Allergies and Home Meds Allergies/Adverse Reactions: Allergies amoxicillin trihydrate [From Augmentin] Allergy (Intermediate, Verified 10/12/20 09:01) Swelling eszopiclone [From Lunesta] Allergy (Mild, Verified 10/12/20 09:01) Rash tetracycline [Tetracycline] Allergy (Unknown, Verified 01/17/21 16:18) Unknown aspirin [From Fiorinal] Allergy (Verified 01/17/21 16:18) Unknown butalbital [From Fiorinal] Allergy (Verified 10/12/20 09:01) Unknown caffeine [From Fiorinal] Allergy (Verified 01/17/21 16:18) Unknown coconut Allergy (Verified 01/17/21 16:18) Anaphylaxis coconut oil Allergy (Verified 01/17/21 16:18) Anaphylaxis divalproex sodium [From Depakote] Allergy (Verified 01/17/21 16:18) Unknown fludrocortisone acetate [From Florinef] Allergy (Verified 01/17/21 16:18) Unknown ketorolac tromethamine [From Toradol] Allergy (Verified 01/17/21 16:18) Unknown meperidine HCl [From Demerol] Allergy (Verified 01/17/21 16:18) Swelling Penicillins Allergy (Verified 01/17/21 16:18) Swelling potassium clavulanate [From Augmentin] Allergy (Verified 01/17/21 16:18) Swelling sitagliptin phosphate [From Januvia] Allergy (Verified 01/17/21 16:18) Other zolpidem tartrate [From Ambien] Allergy (Verified 01/17/21 16:18) Unknown metformin Adverse Reaction (Mild, Verified 01/17/21 16:18) Nausea doxycycline Adverse Reaction (Verified 01/17/21 16:18) Unknown morphine Allergy (Severe, Uncoded 01/17/21 16:18) Swelling Primary Care Physician: Elizabeth Rodriguez MD [Primary Care Provider] - Farhan Sanchez DO [STAFF PHYSICIAN] - 3-5 Days Surgical History: - - right hemicolectomy for transverse colon cancer, Liver resections, appendectomy, port placement, right shoulder surgery ?3, right knee surgery ?1. Lives: Spouse/ Significant Other Smoking Status: Former smoker - Family History Paternal Family History: Reports: No pertinent history, - - No family history of colonic cancer in first-degree family relative. Maternal Family History: Reports: No pertinent history Review of Systems General: Reports: Malaise. Denies: Chills, Fever, Sweats Eyes: Denies: Visual changes - bilaterally, Diplopia ENT: Reports: - - Occasional nosebleed. Denies: Rhinorrhea, Sore throat Cardiovascular: Denies: Chest pain, Palpitations Respiratory: Reports: Dyspnea. Denies: Cough, Orthopnea Gastrointestinal: Reports: Abdominal pain - And distention. Denies: Nausea, Vomiting, Diarrhea, Melena, Hematochezia Genitourinary: Denies: Dysuria, Hematuria, Frequency Musculoskeletal: Reports: Swelling - Abdomen only. Denies: Back pain, Extremity Pain Skin: Denies: Rash, Wounds Neurological: Denies: Headache, Weakness, Numbness Physical Exam Vital Signs/Narrative: Vital Signs Pulse Resp BP Pulse Ox 01/17/21 20:14 99 18 138/77 H 100 01/17/21 19:48 99 18 143/78 H 98 Inital Vital Signs reviewed: Yes General: Well nourished, Well developed, No Acute Distress Head: Normocephalic, Atraumatic Eyes: Perrl, EOMI ENT: Moist mucous membranes, No rhinorrhea Neck: Supple, Nontender Cardiovascular: Regular rate, Regular rhythm, No murmurs Respiratory: No distress, CTA bilaterally, Chest nontender Abdomen: Soft, Nontender, Normal bowel sounds, - - Significant distention with fluid wave, abdomen feels tight but no tenderness. Negative for: Guarding, Rebound tenderness Back: Nontender, Normal Inspection Extremities: Nontender, No edema Skin: Normal color, No rash, No Trauma Neurological: Alert, Oriented x3, Cranial nerves II-XII grossly intact, Normal Strength, Normal Sensation Psychological: Normal affect, Normal Mood Diagnostic/Tx/Re-eval Laboratory Results 01/17/21 01/17/21 01/17/21 17:20 17:20 17:20 WBC 2.8 L RBC 3.19 L Hgb 9.8 L Hct 30.4 L MCV 95.3 H MCH 30.7 MCHC 32.2 RDW Std Deviation 49.6 H RDW Coeff of Roland 14.3 Plt Count 65 L MPV 10.7 Immature Gran % (Auto) 0.400 Neut % (Auto) 76.6 H Lymph % (Auto) 12.0 L [place] % (Auto) 8.4 Eos % (Auto) 2.2 Baso % (Auto) 0.4 Absolute Neuts (auto) 2.1 Absolute Lymphs (auto) 0.33 L Nucleated RBC % 0 Differential Comment Diff Path Review May foll PT 14.3 INR 1.2 Sodium 138 Potassium 4.1 Chloride 106 Carbon Dioxide 27.0 Anion Gap 5 BUN 9 Creatinine 0.53 L Estim Creat Clear Calc 138.77 Est GFR (MDRD) Af Amer 204 Est GFR (MDRD) Non-Af 169 BUN/Creatinine Ratio 16.9 Glucose 146 H Calcium 8.0 L Total Bilirubin 0.90 AST 55 H ALT 48 Alkaline Phosphatase 170 H Total Protein 6.7 Albumin 2.6 L Globulin 4.1 Albumin/Globulin Ratio 0.6 L - Medical Decision Making Liver enzymes are not elevated significantly and his INR is within normal limits. He is not anticoagulated. Does not appear to have cirrhosis, however he may have ascites in relation to the resections that he did have. His [facility] oncologist was not on-call today in order to discuss the details, but the patient is presenting wondering if we can take the fluid off. He was evaluated by myself just after radiology had left, so I consented him for a bedside ED paracentesis which was performed. Please see the procedure note. He felt much better afterwards, tolerated procedure well, this was done as a therapeutic procedure only I do not think he has bacterial peritonitis or needs to be worked up for the right now. He was advised to continue his Lasix and follow-up with his oncologist and he and significant other comfortable without overall plan. Of note, he has no fevers, he is borderline neutropenic but does not qualify for neutropenia, although he is pancytopenic. Procedures Procedure(s): ED paracentesis by ED physician --ultrasound was used to screen his lower abdomen, he had an old seroma scar on the right so we prefer to be done on the left, there was a good pocket of fluid there but it was very lateral in order to keep away from bowel. This area was prepped and draped in a sterile fashion with chlorhexidine, the ultrasound probe was also placed in a sterile sleeve. The area was locally anesthetized with a total of of 8 cc of plain 2% lidocaine. A paracentesis kit was not available so we modified a thoracentesis kit which has essentially the same equipment, and obtained some tubing for paracentesis drainage in order to attach the catheter to vacuum bottles. Isauro lazcano I placed the catheter under ultrasound guidance, upon entering the peritoneum the patient felt a pinch, I was able to easily withdraw straw-colored nonbloody fluid with the attached syringe, I attempted to slide the catheter over the needle into the peritoneum via Seldinger technique however no fluid was then able to be obtained after the needle was withdrawn and upon further inspection it was found that the catheter buckled up into the subcutaneous tissues and did not actually enter the peritoneum although the needle had. Therefore the catheter was removed, I straightened it and was able to replace the needle into it verifying that it had not been punctured anywhere, and repeated the procedure again under ultrasound guidance and the catheter was advanced via Seldinger technique without any resistance or difficulty or excessive discomfort. Straw-colored nonbloody fluid was withdrawn via the vacuum bottles for a total of approximately 3.25 L. However this took quite a long time because it kept stopping and starting again, I did attempt to manipulate the catheter multiple times, initially with sterile gloves handling the catheter every time, but then we started withdrawing and twisting gently and I used nonsterile gloves handling only the attached tubing and not the catheter itself. Eventually was withdrawn, the patient did feel much better, there were no complications. ED Disposition - Plan for ED Patient: Disposition: Home or Assisted Living Diagnosis: Ascites, Colon cancer, Pancytopenia Instructions: Paracentesis, ED Ascites Referrals: Elizabeth Rodriguez MD [Primary Care Provider] - Farhan Sanchez DO [STAFF PHYSICIAN] - 3-5 Days Additional Instructions: Continue taking your Lasix as prescribed. If you develop any redness, increased pain around the puncture site, worsening diffuse abdominal pain, and/or fevers, return to the ER.
[2021-01-17 22:19] VITALS: BP 123/73; PULSE 100; RESP 18; O2SAT 100
[2021-01-18 12:41] LABS: Pathologist Review Reviewed
== END 2021-01-17 22:19 | disposition home or self-care (01) ==
PROVIDERS: Emergency Provider Emergency Medicine; PCP Internal Medicine
DX: R18.8 Other ascites (principal); C18.9 Malignant neoplasm of colon, unspecified; C78.7 Secondary malignant neoplasm of liver and intrahepatic bile duct; D61.818 Other pancytopenia; E11.9 Type 2 diabetes mellitus without complications; E78.5 Hyperlipidemia, unspecified; F31.9 Bipolar disorder, unspecified; Z79.4 Long term (current) use of insulin; Z87.891 Personal history of nicotine dependence
CPT/HCPCS: 49083; 36591; 80053; 85025; 85610; 99284

== ENCOUNTER 2021-01-31 15:27 | Inpatient (IN) | payer BC, MEDICARE, SELFPAY ==
[2021-01-31] VITALS (9 sets, daily range): BP systolic 123–171; BP diastolic 71–99; PULSE 95–104; RESP 17–20; TEMP 36.3–37; O2SAT 95–99; BMI 29.4; BMI 27.5
--- NOTE | 2021-01-31 16:01 | CT_ITS ---
STUDY: CTA CHEST AND CTA ABDOMEN/PELVIS WITH CONTRAST REASON FOR EXAM: Male, 55 years old. Chest pain. Abdominal pain. History of colon cancer with liver and lung metastases. RADIATION DOSAGE (If Supplied By Facility): CTDIvol = ( 14.79 ) mGy, DLP = ( 1083.54 ) mGycm TECHNIQUE: The examination was performed with the intravenous administration of IV 100mL Isovue-370. Post-processing of the angiographic images was performed, with multiplanar reformation and 3D reconstruction. Additionally, axial CT angiography multi-detector data acquisition was obtained from the diaphragm to the ischial tuberosities. Axial images and MIP images were reconstructed from the axial data set. Post-processing of the angiographic images was performed, with multiplanar reformation and 3D reconstruction. Individualized dose optimization techniques were used for this CT. COMPARISON: CTA of the chest, 01/08/2018. FINDINGS: CTA Chest There is a left internal jugular Port-A-Cath with its tip in the superior vena cava Normal enhancement of the main pulmonary artery and right and left pulmonary arteries. Normal enhancement of the bilateral peripheral pulmonary arteries. There is no demonstrated pulmonary embolism. Normal thoracic aorta and visualized great vessels. No thoracic abdominal aneurysm. There is no demonstrated aortic dissection. Normal heart and pericardium. Nonspecific subcentimeter mediastinal lymphadenopathy. Normal hilar regions. Normal visualized trachea and bronchi. The lungs are well expanded. There are bilateral pleural effusions. This is moderate to large on the right and small on the left. There are multiple small soft tissue nodular densities throughout both lungs predominantly peripheral in location. The largest measures 1 cm. No infiltrate. There are minimal linear atelectatic changes at the lung bases to the pleural effusion. Normal chest wall structures. There are degenerative changes of the thoracic spine. No lytic or blastic lesions are noted. CTA Abdomen T Pelvis Abdominal aorta: No demonstrated narrowing. Celiac and superior mesenteric arteries: No demonstrated narrowing. Inferior mesenteric artery: No demonstrated narrowing. Right renal artery(arteries): No demonstrated narrowing. Left renal artery(arteries): No demonstrated narrowing. Right common iliac artery: No demonstrated narrowing. Right external iliac artery: No demonstrated narrowing. Right internal iliac artery: No demonstrated narrowing. Left common iliac artery: No demonstrated narrowing. Left external iliac artery: No demonstrated narrowing. Left internal iliac artery: No demonstrated narrowing. The liver is normal in size. There is low attenuation suggesting fatty infiltration. Along the anterolateral aspect of the right liver is of fluid density area measuring 4.3 x 2.7 x 8.1 cm in size. This appears to be subcapsular thickening overlying capsule. The remainder of the hepatic parenchyma is somewhat heterogenous in density. There are no distinct masses. There is non-visualization of the gallbladder, which may be secondary to either contraction or a prior cholecystectomy. Normal spleen. Normal pancreas. The adrenal glands are slightly prominent in size but maintain normal morphology suggesting hyperplasia. Possible metastatic disease cannot be entirely well. Normal right kidney. Normal left kidney. Hiatal hernia containing proximal stomach and ascites. The stomach is otherwise grossly unremarkable. Normal small intestine. 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 Distal colon is grossly normal. Normal inferior vena cava. Normal retroperitoneum. Normal urinary bladder. The prostate is ill-defined and appears mildly enlarged. There are phleboliths in the pelvis without lymphadenopathy. There is diffuse ascites throughout the abdominal cavity without free air. Small bilateral inguinal hernia is. There is minimal anasarca of the soft tissues of the abdominal wall and flanks. There are degenerative changes along the lumbar spine. No lytic or blastic lesions are seen. CT/CTA Chst, Abd, Pel W and/or WO IMPRESSION: 1. No evidence of pulmonary embolus. 2. Normal thoracic and abdominal aorta without dissection or aneurysm. 3. Multiple pulmonary metastases. 4. The surgical site in the liver suggesting resection on the tumor. There is associated residual fluid collection. Question seroma. 5. Diffuse ascites 6. Bilateral pleural effusions and atelectasis. 7. Evidence of prior resection of the right colon without evidence of local recurrence. Electronically Signed: Elijah Read DO at 18:15 EST Tel [phone], Service support ,
--- NOTE | 2021-01-31 16:02 | EKG12_ITS ---
Test Reason : ABDPAIN Blood Pressure : / mmHG Vent. Rate : 097 BPM Atrial Rate : 097 BPM P-R Int : 146 ms QRS Dur : 092 ms QT Int : 366 ms P-R-T Axes : 036 048 027 degrees QTc Int : 464 ms Normal sinus rhythm Low voltage QRS (Limb Leads) Confirmed by KIESHA PAREKH, ALPHONSO ([id number]), newspaper managing editor SELAM PHELPS ([id number]) on 02/02/2021 11:02:57 AM Referred By: DEMETRA Confirmed By:ALPHONSO POP MD
--- NOTE | 2021-01-31 16:03 | ED.VIS.GEN ---
History of Present Illness Chief Complaint: Abd Pain Informant: Patient Narrative: 55-year-old male with history of colon cancer with metastasis to his liver , and lungs with reported resection of the part of the bowel with colon cancer as well as resection of liver mass presenting today with chest and abdominal pain. He is currently on chemotherapy. He states he has been nauseous and vomiting for 3 days. His last emesis was 6:30 AM. He was able to eat toast and drink water today. He is not had a fever or cough. He states he is making urine but it is dark. Patient was here recently and had ascites which was drained by the ED physician. He states his stomach is not as large as it was then. He describes his pain down the right side of this chest wall down to his right upper abdomen. - Past Medical History (1) Bipolar disorder Status: Chronic (2) Colon cancer Status: Chronic (3) DM type 2 (diabetes mellitus, type 2) Status: Chronic (4) Hyperlipidemia Status: Chronic (5) Small bowel obstruction Status: Chronic Past Medical History - Allergies and Home Meds Allergies/Adverse Reactions: Allergies amoxicillin trihydrate [From Augmentin] Allergy (Intermediate, Verified 10/12/20 09:01) Swelling eszopiclone [From Lunesta] Allergy (Mild, Verified 10/12/20 09:01) Rash tetracycline [Tetracycline] Allergy (Unknown, Verified 01/17/21 16:18) Unknown aspirin [From Fiorinal] Allergy (Verified 01/17/21 16:18) Unknown butalbital [From Fiorinal] Allergy (Verified 10/12/20 09:01) Unknown caffeine [From Fiorinal] Allergy (Verified 01/17/21 16:18) Unknown coconut Allergy (Verified 01/17/21 16:18) Anaphylaxis coconut oil Allergy (Verified 01/17/21 16:18) Anaphylaxis divalproex sodium [From Depakote] Allergy (Verified 01/17/21 16:18) Unknown fludrocortisone acetate [From Florinef] Allergy (Verified 01/17/21 16:18) Unknown ketorolac tromethamine [From Toradol] Allergy (Verified 01/17/21 16:18) Unknown meperidine HCl [From Demerol] Allergy (Verified 01/17/21 16:18) Swelling palm kernel oil Allergy (Verified 01/31/21 15:29) Food Allergy Penicillins Allergy (Verified 01/17/21 16:18) Swelling potassium clavulanate [From Augmentin] Allergy (Verified 01/17/21 16:18) Swelling sitagliptin phosphate [From Januvia] Allergy (Verified 01/17/21 16:18) Other zolpidem tartrate [From Ambien] Allergy (Verified 01/17/21 16:18) Unknown metformin Adverse Reaction (Mild, Verified 01/17/21 16:18) Nausea doxycycline Adverse Reaction (Verified 01/17/21 16:18) Unknown morphine Allergy (Severe, Uncoded 01/17/21 16:18) Swelling Prior records reviewed: Yes Past Medical History: - - Reviewed in problem list Surgical History: - - right hemicolectomy for transverse colon cancer, Liver resections, appendectomy, port placement, right shoulder surgery ?3, right knee surgery ?1. Lives: Spouse/ Significant Other Smoking Status: Former smoker Alcohol: None Drugs: None - Family History Paternal Family History: Reports: No pertinent history, - - No family history of colonic cancer in first-degree family relative. Maternal Family History: Reports: No pertinent history Review of Systems General: Denies: Chills, Fever, Sweats Eyes: Denies: Visual changes - bilaterally, Diplopia ENT: Denies: Rhinorrhea, Sore throat Cardiovascular: Reports: Chest pain. Denies: Palpitations, Heart racing Respiratory: Reports: Dyspnea. Denies: Cough Gastrointestinal: Reports: Abdominal pain, Nausea, Vomiting Genitourinary: Denies: Dysuria, Hematuria Musculoskeletal: Denies: Myalgias, Arthralgias Skin: Denies: Rash, Abscess Neurological: Denies: Headache, Weakness, Parasthesia Psych: Denies: Depression, Anxiety Physical Exam Vital Signs/Narrative: Vital Signs Temp Pulse Resp BP Pulse Ox 01/31/21 15:29 97.4 F L 101 H 18 139/73 H 98 Inital Vital Signs reviewed: Yes General: Obese, No Acute Distress Head: Normocephalic, Atraumatic Eyes: Perrl, EOMI ENT: Moist mucous membranes, No rhinorrhea Cardiovascular: Regular rhythm, Tachycardia Respiratory: No distress, CTA bilaterally Abdomen: Tender - Right upper quadrant, - - Positive fluid waves and abdominal distention. Negative for: Guarding, Rebound tenderness Extremities: Nontender, No edema Skin: Normal color, No rash. Negative for: Cyanosis, Diaphoresis Neurological: Alert, Oriented x3, Cranial nerves II-XII grossly intact Psychological: Normal affect, Normal Mood Diagnostic/Tx/Re-eval Clinical Impression(s) from Imaging Studies Chest/Abdomen/Pelvis CTA 01/31/21 16:01 IMPRESSION: 1. No evidence of pulmonary embolus. 2. Normal thoracic and abdominal aorta without dissection or aneurysm. 3. Multiple pulmonary metastases. 4. The surgical site in the liver suggesting resection on the tumor. There is associated residual fluid collection. Question seroma. 5. Diffuse ascites 6. Bilateral pleural effusions and atelectasis. 7. Evidence of prior resection of the right colon without evidence of local recurrence. Electronically Signed: Elijah Read DO at 18:15 EST Tel [phone], Service support , Laboratory Data 01/31/21 01/31/21 01/31/21 16:30 16:30 17:52 WBC 3.7 L RBC 3.21 L Hgb 9.5 L Hct 31.2 L MCV 97.2 H MCH 29.6 MCHC 30.4 L RDW Std Deviation 51.9 H RDW Coeff of Roland 14.5 Plt Count 73 L MPV 11.2 Immature Gran % (Auto) 0.000 Neut % (Auto) 77.9 H Lymph % (Auto) 10.5 L [place] % (Auto) 8.3 Eos % (Auto) 3.0 Baso % (Auto) 0.3 Absolute Neuts (auto) 2.9 Absolute Lymphs (auto) 0.39 L Nucleated RBC % 0 Differential Comment Diff Path Review May foll Platelet Estimate MKD DEC RBC Morphology NORM C+C Sodium 140 Potassium 4.0 Chloride 107 Carbon Dioxide 28.0 Anion Gap 5 BUN 12 Creatinine 0.48 L Estim Creat Clear Calc 153.22 Est GFR (MDRD) Af Amer 229 Est GFR (MDRD) Non-Af 189 BUN/Creatinine Ratio 24.9 H Glucose 114 H Calcium 8.0 L Total Bilirubin 3.70 H AST 103 H ALT 96 H Alkaline Phosphatase 311 H Troponin I < 0.015 Total Protein 6.4 Albumin 2.3 L Globulin 4.1 Albumin/Globulin Ratio 0.6 L Lipase 59 L Urine Color Yellow Urine Clarity Clear Urine pH 7.0 Ur Specific [place] 1.005 Urine Protein 30 H Urine Glucose (UA) Normal Urine Ketones Negative Urine Occult Blood 10 H Urine Nitrite Negative Urine Bilirubin 1 H Urine Urobilinogen 4 H Ur Leukocyte Esterase 25 H Urine RBC 0 SEEN Urine WBC 0 SEEN Ur Squamous Epith Cells 0 SEEN Urine Bacteria 0 SEEN Urine Mucus 0 SEEN - Medical Decision Making Patient presenting with abdominal pain and chest pain on the right side of his body. He states he previously had to have his ascites drained in the ED. He does not have it set up to be done outpatient on a regular basis. He does not state that he is particularly short of breath. His pain is on the right side of his lower chest. Patient had EKG performed on arrival which shows a normal sinus rhythm at 97 bpm without signs of ischemic changes as interpreted by myself. Patient's chest pain above and below the diaphragm I did perform CTA of the chest abdomen pelvis. This identifies possible seroma at his previous surgical site in the right upper quadrant, diffuse ascites, bilateral pleural effusions with no evidence of PE or dissection. Patient's lab work shows white blood cell count of 3.7, hemoglobin 9.5, platelets 73 these all appear to be near baseline. GFR is normal total bilirubin is elevated at 3.70 alk phos at 311, AST 103, ALT 93. Lipase was negative. Patient required 2 doses of Dilaudid for pain control in the ED. He was given Reglan for his nausea as he states this helps. Given patient's continued pain and ascites I will admit him to the hospital to have pain control as well as obtain paracentesis. Impression: 1. History of metastatic adenocarcinoma 2. Transaminitis 3. Bilateral pleural effusions 4. Diffuse ascites ED Disposition - Plan for ED Patient:
[2021-01-31] MEDS: 0.9% Normal Saline 1,000 ML 1000 ML IV (16:33)
[2021-01-31] MEDS: DiphenhydrAMINE 50 MG/ML Syringe 25 MG IV (16:36)
[2021-01-31] MEDS: Metoclopramide 10 MG/2 ML Vial IV (16:37)
[2021-01-31 16:52] LABS: Absolute Lymphocyte Count 0.39 X10^3/uL (0.83-4.51); Absolute Neutrophil Count 2.9 X10^3/uL (2.0-7.7); Basophil# 0.01 X10^3/uL; Basophil% 0.3 % (0-1); Eosinophil# 0.11 X10^3/uL; Hematocrit 31.2 % (40-54); Hemoglobin 9.5 g/dL (13.0-16.5); Lymphocyte # 0.39 X10^3/ul (4.0); Lymphocyte % 10.5 % (19-41); Mean Corp Hgb Conc 30.4 g/dL (32-36); Mean Corpuscular Hgb 29.6 pg (27.0-32.0); Mean Corpuscular Volume 97.2 fL (80-94); Mean Platelet Vol. 11.2 fl (6.2-12.0); Monocyte# 0.31 X10^3/uL; Monocyte% 8.3 % (0-10); NRBC Flagged by Analyzer 0 % (0-5); Neutrophil % 77.9 % (47-70); POSITIVE COUNT YES; POSITIVE DIFFERENTIAL YES; Platelet Count 73 K/mm3 (150-450); RBC Distribution Width CV 14.5 % (11.6-14.6); RBC Distribution Width SD 51.9 fl (35.1-43.9); Red Blood Count 3.21 M/mm3 (4.6-6.2); White Blood Count 3.7 K/mm3 (4.4-11.0)
[2021-01-31 16:56] LABS: Differential Indicated SCAN CRITERIA MET
[2021-01-31 17:06] LABS: ALB/GLOB Ratio 0.6 RATIO (0.9-2.4); AST(SGOT) 103 U/L (15-37); Alanine Aminotransfer ALT/SGPT 96 U/L (16-61); Albumin, Serum 2.3 g/dL (3.2-5.0); Alkaline Phosphatase 311 U/L (45-117); Anion Gap 5 (5-15); BUN 12 mg/dL (7-18); BUN/Creat Ratio 24.9 RATIO (10-20); Chloride 107 mmol/L (98-107); Creatinine, Serum 0.48 mg/dL (0.70-1.30); EST Glomerular Filtration Rate 189 mL/min (>60); Est Glom Filt Rate - Afr Amer 229 mL/min (>60); Estimated Creatinine Clearance 153.22 ml/min; Globulin 4.1 g/dL (2.2-4.2); Glucose 114 mg/dL (74-106); Lipase 59 U/L (73-393); Protein, Total 6.4 g/dL (6.4-8.2); Sodium Level 140 mmol/L (136-145)
[2021-01-31 17:32] LABS: Platelet Estimate MKD DEC (ADEQ); Red Cell Morphology NORM C+C NORMAL (NORM C&C)
[2021-01-31] MEDS: HYDROmorphone 0.5 MG/0.5 ML SYRINGE IV ×2 (17:47→19:14)
[2021-01-31 17:59] LABS: Bacteria 0 SEEN /hpf (None Seen); Mucous, Urine 0 SEEN /hpf (<or=2+); Red Blood Cells-Urine 0 SEEN /hpf (0-5); Squamous Epithelial Cells - UA 0 SEEN /hpf (0-5); White Blood Cells 0 SEEN /hpf (0-5)
[2021-01-31 18:00] LABS: Color, Urine Yellow (Yellow); Glucose, Dipstick Normal (Normal); Ketone-Dipstick Negative (Negative); Leukocyte Esterase-Dipstick 25 /ul (Negative); Nitrite-Dipstick Negative (Negative); Occult Blood-Urine 10 /ul (Negative); Protein-Dipstick 30 mg/dl (Negative); Specific Gravity, Urine 1.005 (1.002-1.030); Urine Clarity Clear (Clear); Urine Urobilinogen 4 mg/dl (Normal)
[2021-01-31 18:04] LABS: Urine Bilirubin Dipstick 1 mg/dL (Negative)
--- NOTE | 2021-01-31 19:57 | HP.PCM_ITS ---
Problem List (1) Metastatic colon cancer to liver Status: Acute (2) Bipolar disorder Status: Chronic (3) Colon cancer Status: Chronic (4) DM type 2 (diabetes mellitus, type 2) Status: Chronic (5) Hyperlipidemia Status: Chronic (6) Small bowel obstruction Status: Chronic (7) Neurogenic syncope Status: Chronic (8) Ascites Status: Chronic Qualifiers: Ascites type: malignant Qualified Code(s): R18.0 - Malignant ascites (9) Bilateral pleural effusion Status: Acute History of Present Illness Date of Admission: 01/31/21 Chief Complaint: Abdominal and right-sided chest pain The patient is a 55 year old M with history of CA colon with metastasis to liver and lungs came to ED with shortness of breath, abdominal right-sided chest pain. Patient last ED visit was on January 17 when he had 3.25 L paracentesis done in ER was sent home. He follows Dr. Dr. Ventura was scheduled for chemotherapy next week. Patient has been feeling abdominal discomfort, shortness of breath for last 3 days and had nausea and vomiting for last 3 days. He denies any fever or chills or cough. Patient also getting jaundice and his urine is dark yellow. Patient had seizure: Diagnosed about 6 years ago and had right colectomy with ileocolonic anastomosis as per CT report. Patient has been on chemo before. CTA chest and abdomen was done in ER which shows bilateral pleural effusion, right more than left, multiple soft tissue nodular densities, largest measuring 1 cm. Normal small bowel. It also reported 4.3 x 2.7 x 1.1 cm of fluid density in anterolateral aspect of right liver. Labs are reviewed and are significant of pancytopenia, jaundice and elevated liver chemistry. [] Past Medical History Past Medical History (Chronic Problems): Chronic Problems Small bowel obstruction (Chronic) Ascites (Chronic) Neurogenic syncope (Chronic) DM type 2 (diabetes mellitus, type 2) (Chronic) Colon cancer (Chronic) Bipolar disorder (Chronic) Hyperlipidemia (Chronic) Allergies amoxicillin trihydrate [From Augmentin] Allergy (Intermediate, Verified 10/12/20 09:01) Swelling eszopiclone [From Lunesta] Allergy (Mild, Verified 10/12/20 09:01) Rash tetracycline [Tetracycline] Allergy (Unknown, Verified 01/17/21 16:18) Unknown aspirin [From Fiorinal] Allergy (Verified 01/17/21 16:18) Unknown butalbital [From Fiorinal] Allergy (Verified 10/12/20 09:01) Unknown caffeine [From Fiorinal] Allergy (Verified 01/17/21 16:18) Unknown coconut Allergy (Verified 01/17/21 16:18) Anaphylaxis coconut oil Allergy (Verified 01/17/21 16:18) Anaphylaxis divalproex sodium [From Depakote] Allergy (Verified 01/17/21 16:18) Unknown fludrocortisone acetate [From Florinef] Allergy (Verified 01/17/21 16:18) Unknown ketorolac tromethamine [From Toradol] Allergy (Verified 01/17/21 16:18) Unknown meperidine HCl [From Demerol] Allergy (Verified 01/17/21 16:18) Swelling palm kernel oil Allergy (Verified 01/31/21 15:29) Food Allergy Penicillins Allergy (Verified 01/17/21 16:18) Swelling potassium clavulanate [From Augmentin] Allergy (Verified 01/17/21 16:18) Swelling sitagliptin phosphate [From Januvia] Allergy (Verified 01/17/21 16:18) Other zolpidem tartrate [From Ambien] Allergy (Verified 01/17/21 16:18) Unknown metformin Adverse Reaction (Mild, Verified 01/17/21 16:18) Nausea doxycycline Adverse Reaction (Verified 01/17/21 16:18) Unknown morphine Allergy (Severe, Uncoded 01/17/21 16:18) Swelling Home Medications: Ambulatory Orders Medication Instructions Recorded Carbamazepine [Tegretol] 600 mg PO QHS 10/29/13 Carbamazepine [Tegretol] 400 mg PO BREAKFAST 09/10/14 Pregabalin [Lyrica] 150 mg PO BID 09/11/14 Insulin Aspart [Novolog Flexpen] 18 units SC TIDCM 01/27/15 Lorazepam [Ativan] 2 mg PO Q8H PRN PRN 05/08/15 Omeprazole [Prilosec] 40 mg PO DAILY 12/05/16 Tamsulosin HCl [Flomax] 0.4 mg PO QHS 12/05/16 Cyclobenzaprine HCl 10 mg PO PRN PRN 01/08/18 Insulin Degludec [Tresiba 90 unit SQ QHS 01/08/18 Flextouch U-100] Metoclopramide [Reglan] 10 mg PO PRN PRN 01/08/18 Multivitamins,Therapeutic 1 tablet PO DAILY 01/08/18 [Multivitamin] Pyridoxine HCl (Vitamin B6) [B-6] 200 mg PO DAILY 01/08/18 Dicyclomine HCl [Bentyl] 20 mg PO TIDAC 10/12/20 Furosemide 40 mg PO DAILY 10/12/20 Potassium Chloride 10 meq PO BID 10/12/20 Green Tea Parnell Extract [Green Tea] 500 mg PO DAILY 01/17/21 Oxycodone CR [Oxycontin] 40 mg PO Q12H 01/17/21 glipiZIDE [Glucotrol] 5 mg PO DAILY@0730 01/17/21 Hydrocodone/Acetaminophen 1 tab PO Q4H PRN PRN 01/31/21 [Hydrocodone-Acetamin 10-325 mg] Spironolactone [Aldactone] 25 mg PO DAILY 01/31/21 Surgical History: - - right hemicolectomy for transverse colon cancer, Liver resections, appendectomy, port placement, right shoulder surgery ?3, right knee surgery ?1. Psychiatric History: Bipolar, Depression, Prior suicide attempt - 1 year ago suicide attempt, EtOH. Lives: Spouse/ Significant Other Smoking Status: Former smoker Tobacco Use: Cigarettes Alcohol: None Drugs: None - *Family History Paternal History Items: No pertinent history, - - No family history of colonic cancer in first-degree family relative. Maternal History Items: No pertinent history Review of Systems Constitutional: Reports: Anorexia, Malaise, Weakness, Weight Change - Weight gain from ascites, Fatigue. Denies: Chills, Fever HEENT: Denies: Head Aches, Sinus Congestion, Sinus Drainage Cardiovascular: Reports: Chest Pain - Right-sided pleuritic chest pain. Denies: Palpitations Respiratory: Reports: Shortness of Breath, Shortness of breath at rest, Shortness of breath upon exertion. Denies: Cough, Sputum production Gastrointestinal: Reports: Abdominal Pain - Abdominal discomfort. Denies: Nausea, Vomiting Genitourinary: Denies: Dysuria, Frequency Musculoskeletal: Denies: Joint Pain, Joint Tenderness Skin: Denies: Rash, Wounds Neurological: Denies: Numbness, Tingling, Focal weakness Psychiatric: Denies: Anxiety, Depression, Homicidal Ideations, Suicidal Ideations Hematologic/ Lymphatic: Denies: Easy Bruising, Easy Bleeding VTE Information - Inpt Only VTE Present on Admission: No VTE Mechan Device Prophylaxis: None VTE Pharm Prophylaxis ordered?: Yes Patient Problems: Active and Suspected Problems Metastatic colon cancer to liver (Acute) Bilateral pleural effusion (Acute) - Physical Exam Vitals/I&O's: Vital Signs Temp Pulse Resp BP Pulse Ox 97.4 F L 103 H 20 H 171/99 H 96 01/31/21 15:29 01/31/21 19:32 01/31/21 19:32 01/31/21 19:32 01/31/21 19:32 Oxygen Delivery Method Room Air Weight: 182 lb 1.629 oz Body Mass Index (BMI) 29.4 Finger Stick Blood Glucose 338 Intake and Output for Last 24 Hours 01/29/21 01/30/21 01/31/21 23:59 23:59 23:59 Intake Total 1000 / 1000 Balance 1000 / 1000 General: Alert, Oriented x3, Cooperative HEENT: Atraumatic, PERRLA, EOMI, Normocephalic, - - Icterus present. Oral: Dry Mucosa, - Neck: Supple, No JVD, Negative Carotid Bruits Lungs: Clear to auscultation, No rhonchi, No wheeze, No rales, Diminished - Air entry diminished in bilateral lungs, right more than left. Cardiovascular: Regular rate, Regular Rhythm, Normal S1, Normal S2, No murmurs Abdomen: Bowel Sounds Present, Soft, Non Tender, Hypoactive Bowel Sounds, Distended, - - Ascites with fluid thrill Extremities: No edema - No ankle edema, Capillary Refill Less than 3 Seconds Skin: No rashes, No breakdown Musculoskeletal: No Tenderness to Palpation of Joints or Extremities, Arthritic Changes Neurological: Cranial nerves II-XII grossly intact, Deep Tendon Reflexes 2+/4 and Symmetrical, Neuro grossly intact Psych/Mental Status: Normal Affect, Appropriate Laboratory Results 01/31/21 16:30: WBC 3.7 L, RBC 3.21 L, Hgb 9.5 L, Hct 31.2 L, MCV 97.2 H, MCH 29.6, MCHC 30.4 L, RDW Std Deviation 51.9 H, RDW Coeff of Roland 14.5, Plt Count 73 L, MPV 11.2, Immature Gran % (Auto) 0.000, Neut % (Auto) 77.9 H, Lymph % (Auto) 10.5 L, Kidder % (Auto) 8.3, Eos % (Auto) 3.0, Baso % (Auto) 0.3, Absolute Neuts (auto) 2.9, Absolute Lymphs (auto) 0.39 L, Nucleated RBC % 0, Differential Comment , Diff Path Review March, Platelet Estimate MKD DEC, RBC Morphology NORM C+C 01/31/21 16:30: Sodium 140, Potassium 4.0, Chloride 107, Carbon Dioxide 28.0, Anion Gap 5, BUN 12, Creatinine 0.48 L, Estim Creat Clear Calc 153.22, Est GFR (MDRD) Af Amer 229, Est GFR (MDRD) Non-Af 189, BUN/Creatinine Ratio 24.9 H, Glucose 114 H, Calcium 8.0 L, Total Bilirubin 3.70 H, AST 103 H, ALT 96 H, Alkaline Phosphatase 311 H, Troponin I < 0.015, Total Protein 6.4, Albumin 2.3 L , Globulin 4.1, Albumin/Globulin Ratio 0.6 L, Lipase 59 L 01/31/21 17:52: Urine Color Yellow, Urine Clarity Clear, Urine pH 7.0, Ur Specific [place] 1.005, Urine Protein 30 H, Urine Glucose (UA) Normal, Urine Ketones Negative, Urine Occult Blood 10 H, Urine Nitrite Negative, Urine Bilirubin 1 H, Urine Urobilinogen 4 H, Ur Leukocyte Esterase 25 H, Urine RBC 0 SEEN, Urine WBC 0 SEEN, Ur Squamous Epith Cells 0 SEEN, Urine Bacteria 0 SEEN, Urine Mucus 0 SEEN Assessment/Plan All Active Problems Metastatic colon cancer to liver (Acute) Bilateral pleural effusion (Acute) The patient is a 55 year old M with history of CA colon with metastasis to liver and lungs came to ED with shortness of breath, abdominal right-sided chest pain and assessment overall consistent with metastatic colon cancer to liver and lungs with ascites and bilateral pleural effusion. 1. Ascites and bilateral pleural effusion, most probably malignant right more than left secondary to metastatic colon cancer: Patient is being admitted in PCU. Ultrasound-guided paracentesis ordered for tomorrow a.m. along with the lab orders for cell count, chemistry, culture and sensitivity and cytology. Lasix 40 mg IV twice daily. Patient is also on spironolactone which is continued. 2. CA: With metastatic liver and lungs: Elevated transaminases and total bilirubin. AST was 55 and total bili normal on January 17 which increased to total bilirubin 3.7 and elevated transaminases and alkaline phosphatase. Advise right upper quadrant sonogram after paracentesis. Patient also scheduled for chemotherapy by Dr. Sanchez. 3. Diabetes mellitus type 2: Accu-Cheks before meals and at bedtime. Patient on long-acting and short-acting insulin at home. 4. Bipolar disorder: On Tegretol 5. BPH: On Flomax VTE prophylaxis: High risk secondary to colon cancer. Lovenox 40 mg subcu daily. Discontinue if platelet count drops less than 50,000 or hemoglobin less than 8 g%. Living will/advanced directive/end of life care: Patient does have living will or advanced directive. After discussion of benefits/risks procedures involved with full code, DNR CC arrest and DNR CC, the patient opted for DNR-CC Arrest with no intubation Patient does not want artificial life support including intubation, tube feed, ventilator and/chest compression, central venous catheter, vasopressor and DC shock if needed Total time spent in [id number] encounter in discussion of advanced directive 16 minutes. [] Laboratory Results 01/31/21 16:30: WBC 3.7 L, RBC 3.21 L, Hgb 9.5 L, Hct 31.2 L, MCV 97.2 H, MCH 29.6, MCHC 30.4 L, RDW Std Deviation 51.9 H, RDW Coeff of Roland 14.5, Plt Count 73 L, MPV 11.2, Immature Gran % (Auto) 0.000, Neut % (Auto) 77.9 H, Lymph % (Auto) 10.5 L, Kidder % (Auto) 8.3, Eos % (Auto) 3.0, Baso % (Auto) 0.3, Absolute Neuts (auto) 2.9, Absolute Lymphs (auto) 0.39 L, Nucleated RBC % 0, Differential Comment , Diff Path Review May brain Platelet Estimate MKD DEC, RBC Morphology NORM C+C 01/31/21 16:30: Sodium 140, Potassium 4.0, Chloride 107, Carbon Dioxide 28.0, Anion Gap 5, BUN 12, Creatinine 0.48 L, Estim Creat Clear Calc 153.22, Est GFR (MDRD) Af Amer 229, Est GFR (MDRD) Non-Af 189, BUN/Creatinine Ratio 24.9 H, Glucose 114 H, Calcium 8.0 L, Total Bilirubin 3.70 H, AST 103 H, ALT 96 H, Alkaline Phosphatase 311 H, Troponin I < 0.015, Total Protein 6.4, Albumin 2.3 L , Globulin 4.1, Albumin/Globulin Ratio 0.6 L, Lipase 59 L 01/31/21 17:52: Urine Color Yellow, Urine Clarity Clear, Urine pH 7.0, Ur S pecific [place] 1.005, Urine Protein 30 H, Urine Glucose (UA) Normal, Urine Ketones Negative, Urine Occult Blood 10 H, Urine Nitrite Negative, Urine Bilirubin 1 H, Urine Urobilinogen 4 H, Ur Leukocyte Esterase 25 H, Urine RBC 0 SEEN, Urine WBC 0 SEEN, Ur Squamous Epith Cells 0 SEEN, Urine Bacteria 0 SEEN, Urine Mucus 0 SEEN Clinical Impression(s) from Imaging Studies Chest/Abdomen/Pelvis CTA 01/31/21 16:01 IMPRESSION: 1. No evidence of pulmonary embolus. 2. Normal thoracic and abdominal aorta without dissection or aneurysm. 3. Multiple pulmonary metastases. 4. The surgical site in the liver suggesting resection on the tumor. There is associated residual fluid collection. Question seroma. 5. Diffuse ascites 6. Bilateral pleural effusions and atelectasis. 7. Evidence of prior resection of the right colon without evidence of local recurrence. Inpatient E&M: 73246 Init Hosp L3 Procedures: 11627 Advncd Care Plan 30 Min
[2021-01-31] MEDS: 0.9% Saline Lock 10 ML Syringe IV ×2 (20:35→21:54)
[2021-01-31] MEDS: Furosemide 40 MG/4 ML Vial IV (20:35)
[2021-01-31 21:31] LABS: Bedside Glucose 45 mg/dL (70-110)
[2021-01-31] MEDS: Dextrose 50%-Water 25 GM/50 ML DISP.SYRIN IV (21:51)
[2021-01-31] MEDS: carBAMazepine 200 MG Tablet 600 MG PO (22:25)
[2021-01-31] MEDS: Tamsulosin HCl 0.4 MG Capsule PO (22:25)
[2021-01-31] MEDS: Pregabalin 75 MG Capsule 150 MG PO (22:25)
[2021-01-31 22:36] LABS: Bedside Glucose 175 mg/dL (70-110)
[2021-01-31 22:36] LABS: Bedside Glucose 44 mg/dL (70-110)
[2021-02-01] VITALS (12 sets, daily range): BP systolic 121–140; BP diastolic 67–82; PULSE 60–106; RESP 16–18; TEMP 36.2–37.2; O2SAT 93–98
[2021-02-01 01:21] LABS: Bedside Glucose 121 mg/dL (70-110)
[2021-02-01 04:31] LABS: Bedside Glucose 110 mg/dL (70-110)
[2021-02-01] MEDS: oxyCODONE 5 MG Tablet PO (05:21)
[2021-02-01 06:30] LABS: Absolute Lymphocyte Count 0.55 X10^3/uL (0.83-4.51); Absolute Neutrophil Count 2.6 X10^3/uL (2.0-7.7); Basophil# 0.01 X10^3/uL; Basophil% 0.3 % (0-1); Eosinophil# 0.13 X10^3/uL; Eosinophils% 3.5 % (0-5); Hematocrit 30.9 % (40-54); Hemoglobin 9.5 g/dL (13.0-16.5); Lymphocyte # 0.55 X10^3/ul (4.0); Lymphocyte % 14.8 % (19-41); Mean Corp Hgb Conc 30.7 g/dL (32-36); Mean Corpuscular Hgb 30.1 pg (27.0-32.0); Mean Corpuscular Volume 97.8 fL (80-94); Mean Platelet Vol. 11.2 fl (6.2-12.0); Monocyte# 0.43 X10^3/uL; Monocyte% 11.6 % (0-10); NRBC Flagged by Analyzer 0 % (0-5); Neutrophil # 2.58 X10^3/uL (2.7-7.7); Neutrophil % 69.5 % (47-70); POSITIVE COUNT YES; POSITIVE DIFFERENTIAL YES; Platelet Count 76 K/mm3 (150-450); RBC Distribution Width CV 14.4 % (11.6-14.6); RBC Distribution Width SD 51.3 fl (35.1-43.9); Red Blood Count 3.16 M/mm3 (4.6-6.2); White Blood Count 3.7 K/mm3 (4.4-11.0)
[2021-02-01 06:31] LABS: Differential Indicated SCAN CRITERIA MET
[2021-02-01 06:55] LABS: ALB/GLOB Ratio 0.5 RATIO (0.9-2.4); AST(SGOT) 101 U/L (15-37); Alanine Aminotransfer ALT/SGPT 93 U/L (16-61); Albumin, Serum 2.2 g/dL (3.2-5.0); Alkaline Phosphatase 310 U/L (45-117); Anion Gap 6 (5-15); BUN 12 mg/dL (7-18); BUN/Creat Ratio 24.6 RATIO (10-20); Calcium,Total 7.8 mg/dL (8.5-10.1); Chloride 106 mmol/L (98-107); Creatinine, Serum 0.49 mg/dL (0.70-1.30); EST Glomerular Filtration Rate 187 mL/min (>60); Est Glom Filt Rate - Afr Amer 226 mL/min (>60); Globulin 4.2 g/dL (2.2-4.2); Glucose 80 mg/dL (74-106); Magnesium 1.9 mg/dL (1.6-2.6); Potassium 3.6 mmol/L (3.5-5.1); Protein, Total 6.4 g/dL (6.4-8.2); Sodium Level 139 mmol/L (136-145)
--- NOTE | 2021-02-01 08:27 | US_ITS ---
PROCEDURE: ULTRASOUND GUIDED PARACENTESIS CLINICAL HISTORY: Male, 55 years old. ASCITES CONSENT: The risks, benefits and alternatives to the procedure were explained to the patient, and the patient agreed to the procedure and signed the consent. SEDATION: Local Anesthesia STERILE BARRIER TECHNIQUE: The following sterile barrier precautions were used during the procedure: hand hygiene; use of 2% chlorhexidine aseptic; use of a cap, mask, sterile gown, sterile gloves, sterile full body drape, and a large sterile sheet. PROCEDURE/TECHNIQUE: The risks, benefits, and alternatives to the procedure were explained to patient, and the patient agreed to the procedure and signed a consent form for the procedure. TECHNIQUE: Under the ultrasound guidance using sterile technique and after infiltration of the skin and subcutaneous soft tissues with 10 mL of lidocaine 1% a 5 Occitan drainage catheter is introduced in the lower part of the abdomen. 2650 mL of fluid were removed sample sent to lab for evaluation. The patient tolerated the procedure there was no immediate complication. FINDINGS: FLUID PRE-PROCEDURE There is posterior enhancement. The findings appear anechoic. There is no loculation. FLUID POST-PROCEDURE Amount of fluid drained: 2650 ml. US/Paracentesis with US IMPRESSION: Successful ultrasound-guided paracentesis. Electronically Signed: Genesis Angel MD at 16:32 EST Tel , Service support ,
[2021-02-01] MEDS: Pantoprazole Sodium 40 MG Tablet PO (09:28)
[2021-02-01] MEDS: Potassium Chloride Oral Tablet 10 MEQ PO ×2 (09:28→16:53)
[2021-02-01] MEDS: Pregabalin 75 MG Capsule 150 MG PO ×2 (09:28→21:13)
[2021-02-01] MEDS: Spironolactone 25 MG Tablet PO (09:29)
[2021-02-01] MEDS: Furosemide 40 MG/4 ML Vial IV ×2 (09:29→16:53)
[2021-02-01] MEDS: carBAMazepine 200 MG Tablet 400 MG PO (09:29)
--- NOTE | 2021-02-01 10:05 | CASEMGMT ---
CATHLEEN CORTEZ Assessment: Face to Face with patient for initial transition planning/care coordination assessment. RN DANA introduced self and role at [facility], pt voices understanding and consents to assessment. Pt is sitting up in chair eating breakfast. Pt is A/Ox4 and answers questions appropriately. Care providers, pharmacy, and demographics verified. Presentation: abd pain, lung pain Admitting dx: SOB, malignant ascites PCP:Michael Specialists: Masci- onc Preferred Pharmacy:[facility] [place] Insurance:CARMEN Maharaj Prescription Benefit: yes Living Will/HPOA:yes, HPOA is Jessika Nayak. Pt is aware that LW/HPOA is not on file at [facility]. States will bring in. LNOK: Jessika Living Arrangements: Pt lives in a 2 story house with his and dtr and states no concerns at this time. Pt states I in ADL's. Transportation:Pt drives self and has no concerns with transportation. DME/HHC:Pt reports having a cane, walker and shower chair at home. Denies need for further DME. Denies any previous HHC. States he is active with [facility]iative Care. TC to Denae at [facility] who confirmed this. Pt states no concerns with going home at time of dc. Pt is disabled. He reports no smoking or drinking ETOH. Pt states no further concerns/needs. CM to follow for any further dc planning/needs. Advised pt to ask for CM if any further questions/concerns/needs arise, voices understanding. Pt goal: Home Plan:Home
[2021-02-01 11:01] LABS: Bedside Glucose 130 mg/dL (70-110)
[2021-02-01 11:01] LABS: Bedside Glucose 49 mg/dL (70-110)
[2021-02-01] MEDS: Dicyclomine 10 MG Capsule 20 MG PO ×2 (11:23→16:53)
[2021-02-01 12:30] LABS: Pathologist Review Reviewed
[2021-02-01 12:30] LABS: Pathologist Review Reviewed
--- NOTE | 2021-02-01 12:43 | CHAPLAIN ---
Type of Pastoral Visit _x__ Initial Visit ___ Follow-up Visit ___ On-call Visit ___ General Patient Visit ___ Spiritual Assessment ___ Family Conference ___ Bereavement ___ Rapid Response ___ Code Blue ___ Other (describe below) Pastoral Care Referral From _x__ Patient ___ Family ___ Nurse ___ Physician ___ Supervisor Hydrochloric Area ___ Senior Cognos Developer ___ Other (describe below) Sacrament/Intervention _x__ Active listening ___ Anointing ___ Church ___ Bereavement ___ Communion ___ Gauri exploration ___ _x__ Life review _x__ Prayer ___ Reconciliation ___ Sacrament of Sick _x__ Supportive presence ___ Wedding ___ Other (describe below) Pastoral Comments patient and spouse together in room; pt several times repeats his issue is knowing what I should do; pt discusses his thomas with cancer, his bucket list, and his chemo treatments; spouse states absolute support for pt and he agrees about their unity in thomas; pt welcomes prayer and presence, expresses thanks for the conversation and visit.
--- NOTE | 2021-02-01 14:31 | NURSING ---
During pt's paracentesis pt mentioned that Dr. Sanchez said the patient would be able to have a catheter placed in his abdomen to drain at home if need be. Pt said he would like to have this procedure done, however, Dr. Sanchez said it would need to be done outside of [place]. CATHLEEN Simon informed the patient that surgeons at [facility] do the procedure Dr. Sanchez referring to and Dr. Sanchez could consult them if that is what the patient would like. Pt states he would much rather stay in [place] if possible. Pt then continued to talk about the extensive abdominal surgeries he has had throughout his journey with colon CA. CATHLEEN Simon informed pt that could be part of why Dr. Sanchez stated he would need to have the procedure done somewhere other than [place], but that he could always consult a [facility] surgeon to see if they would be comfortable doing the procedure. CATHLEEN Simon called Dr. Sanchez's RN to inform her of this discussion. Dr. Sanchez's nurse states that she will talk with Dr. Sanchez to make sure he is aware of patient's request.
[2021-02-01 17:06] LABS: Bedside Glucose 126 mg/dL (70-110)
--- NOTE | 2021-02-01 17:23 | PCM.PROGNOTE ---
Patient Problems: Active and Suspected Problems Metastatic colon cancer to liver (Acute) Bilateral pleural effusion (Acute) Subjective: Patient was seen and examined today, I talked extensively with the patient as well as his who was in the room at the time of my examination. Patient underwent a paracentesis today with removal of 2650 cc of fluid from the abdomen, unfortunately I was not aware that oncology wanted the fluid check for cytology and the fluid was discarded. Patient does have a sizable right pleural effusion, I have talked with oncology today and they feel that it would be beneficial for the patient to undergo thoracentesis tomorrow and the patient has consented. The patient's pleural fluid will be sent to the lab for cytology. There was some talk about having the patient follow-up with general surgery as an outpatient for placement of a Pleurx catheter in the abdominal wall for future drainage but I talked with oncology and they stated that they could arrange for that as an outpatient so I am not going to have general surgery see the patient while he is in the hospital. Patient's bilirubin is elevated-it is severely elevated as compared to his bilirubin just 2-1/2 to 3 weeks ago. Oncology is aware of this and they will recheck it as an outpatient this week. - Physical Exam Vitals/I&O's: Vital Signs Temp Pulse Resp BP Pulse Ox 97.9 F 95 16 140/77 H 93 02/01/21 14:19 02/01/21 15:00 02/01/21 14:19 02/01/21 14:19 02/01/21 14:00 Oxygen Delivery Method [5] Room Air Oxygen Delivery Method [4] Room Air Oxygen Delivery Method [3] Room Air Oxygen Delivery Method [2] Room Air Oxygen Delivery Method [1 ( Room Air Initial Baseline)] Oxygen Delivery Method Room Air Weight: 79.2 kg Body Mass Index (BMI) 27.5 Finger Stick Blood Glucose 338 Intake and Output for Last 24 Hours 01/30/21 01/31/21 02/01/21 23:59 23:59 23:59 Intake Total 1000 / 1220 720 / 720 Output Total 4000 / 4000 Balance 1000 / 320 -3280 / -3280 General: Alert, Oriented x3, Cooperative, No apparent distress, Well developed HEENT: Atraumatic, PERRLA, EOMI, Normocephalic Oral: Moist Mucosa Neck: Supple, No JVD, Trachea Midline, Thyroid Normal Size and Texture Lungs: Clear to auscultation, Normal air movement, No rhonchi, No wheeze, No rales Cardiovascular: Regular rate, Regular Rhythm, Normal S1, Normal S2, No murmurs, PMI Normal, No rub noted, No Gallop Abdomen: Bowel Sounds Present, Soft, Non Tender, Non-Distended Extremities: No clubbing, No cyanosis, Capillary Refill Less than 3 Seconds Skin: No rashes, No breakdown Musculoskeletal: No Tenderness to Palpation of Joints or Extremities Neurological: Cranial nerves II-XII grossly intact, Neuro grossly intact, Sensory exam intact to light touch and pain Psych/Mental Status: Normal Affect, Appropriate, Alert and oriented to time, place, person, mood and affect Microbiology Past 72 Hours 01/31/21 20:00 Mucosa - Nose SARS-CoV-2 Antigen (Rapid) - Final Laboratory Results 01/31/21 16:30: Differential Comment , Diff Path Review Reviewed, Platelet Estimate MKD DEC, RBC Morphology NORM C+C 01/31/21 17:52: Urine Color Yellow, Urine Clarity Clear, Urine pH 7.0, Ur Specific [place] 1.005, Urine Protein 30 H, Urine Glucose (UA) Normal, Urine Ketones Negative, Urine Occult Blood 10 H, Urine Nitrite Negative, Urine Bilirubin 1 H, Urine Urobilinogen 4 H, Ur Leukocyte Esterase 25 H, Urine RBC 0 SEEN, Urine WBC 0 SEEN, Ur Squamous Epith Cells 0 SEEN, Urine Bacteria 0 SEEN, Urine Mucus 0 SEEN 01/31/21 21:20: POC Glucose 45 L 01/31/21 21:45: POC Glucose 44 L* 01/31/21 22:21: POC Glucose 175 H 02/01/21 01:11: POC Glucose 121 H 02/01/21 04:06: POC Glucose 110 02/01/21 05:57: WBC 3.7 L, RBC 3.16 L, Hgb 9.5 L, Hct 30.9 L, MCV 97.8 H, MCH 30.1, MCHC 30.7 L, RDW Std Deviation 51.3 H, RDW Coeff of Roland 14.4, Plt Count 76 L, MPV 11.2, Immature Gran % (Auto) 0.300, Neut % (Auto) 69.5, Lymph % (Auto) 14.8 L, [place] % (Auto) 11.6 H, Eos % (Auto) 3.5, Baso % (Auto) 0.3, Absolute Neuts (auto) 2.6, Absolute Lymphs (auto) 0.55 L, Nucleated RBC % 0, Diff Path Review Reviewed 02/01/21 05:57: Sodium 139, Potassium 3.6, Chloride 106, Carbon Dioxide 27.0, Anion Gap 6, BUN 12, Creatinine 0.49 L, Estim Creat Clear Calc 150.10, Est GFR (MDRD) Af Amer 226, Est GFR (MDRD) Non-Af 187, BUN/Creatinine Ratio 24.6 H, Glucose 80, Calcium 7.8 L, Magnesium 1.9, Total Bilirubin 3.70 H, AST 101 H, ALT 93 H, Alkaline Phosphatase 310 H, Total Protein 6.4, Albumin 2.2 L, Globulin 4.2, Albumin/Globulin Ratio 0.5 L 02/01/21 09:15: POC Glucose 49 L 02/01/21 10:46: POC Glucose 130 H 02/01/21 16:46: POC Glucose 126 H Current Medications Acetaminophen (Acetaminophen 325 Mg Tablet) 650 mg PO Q6H PRN PRN PRN Reason: Pain Score 1-10/Temp > 100.7 F Al Hydroxide/Mg Hydroxide (Mag Hydrox/Al Hydrox/Simeth 30 Ml Udc) 30 ml PO Q6H PRN PRN PRN Reason: Gastric Burning Albuterol Sulfate (Albuterol 2.5 Mg/3 Ml Vial.Neb.) 2.5 mg INHALATION Q2H PRN PRN PRN Reason: SOB/Wheezing Carbamazepine (Carbamazepine 200 Mg Tablet) 400 mg PO BREAKFAST [facility] Last Admin: 02/01/21 09:29 Dose: 400 mg Documented by: Carbamazepine (Carbamazepine 200 Mg Tablet) 600 mg PO QHS [facility] Last Admin: 01/31/21 22:25 Dose: 600 mg Documented by: Cyclobenzaprine HCl (Cyclobenzaprine Hcl 10 Mg Tablet) 10 mg PO TID PRN PRN PRN Reason: MUSCLE SPASM Dextrose (Dextrose 50%-Water 25 Gm/50 Ml Disp.Syrin) 0 gm IV X1 PRN; Protocol PRN Reason: Hypoglycemia Last Admin: 01/31/21 21:51 Dose: 25 gm Documented by: Dicyclomine HCl (Dicyclomine 10 Mg Capsule) 20 mg PO TIDAC [facility] Last Admin: 02/01/21 16:53 Dose: 20 mg Documented by: Enoxaparin Sodium (Enoxaparin 40 Mg/0.4 Ml Syringe) 40 mg SC DAILY [facility] Last Admin: 01/31/21 22:25 Dose: Not Given Documented by: Furosemide (Furosemide 40 Mg/4 Ml Vial) 40 mg IV BID@1000,1800 [facility] Last Admin: 02/01/21 16:53 Dose: 40 mg Documented by: Glucagon (Glucagon 1 Mg/Ml Syringe) 1 mg IM .X1 PRN PRN Reason: Hypoglycemia Insulin Glargine (Insulin Glargine 100 Units/Ml Pen) 10 units SC BREAKFAST [facility] Last Admin: 02/01/21 09:23 Dose: Not Given Documented by: Insulin Human Lispro (Insulin Lispro 100 Unit/Ml Insuln.Pen) 15 unit SC TIDCM [facility] Last Admin: 02/01/21 17:05 Dose: Not Given Documented by: Lorazepam (Lorazepam 1 Mg Tablet) 2 mg PO Q8H PRN PRN PRN Reason: ANXIETY Metoclopramide HCl (Metoclopramide 10 Mg Tablet) 10 mg PO Q8H PRN PRN PRN Reason: GI CRAMPING Morphine Sulfate (Morphine 2 Mg/Ml Syringe) 2 mg IV Q3H PRN PRN PRN Reason: Pain Score 6-10 Nitroglycerin (Nitroglycerin (Inpatient Use) 0.4 Mg Tab.Subl) 0.4 mg SL Q5M PRN PRN Reason: CARDIAC/CHEST PAIN Nutritional Formula (Lactose Free) (Ensure Enlive 120 Ml Liquid) 120 ml PO 4X/DAY [facility] Last Admin: 02/01/21 17:05 Dose: Not Given Documented by: Ondansetron HCl (Ondansetron 4 Mg/2 Ml Vial) 4 mg IV Q8H PRN PRN PRN Reason: NAUSEA/VOMITING Oxycodone HCl (Oxycodone 5 Mg Tablet) 5 mg PO Q4H PRN PRN PRN Reason: Pain Score 4-5 Last Admin: 02/01/21 05:21 Dose: 5 mg Documented by: Oxycodone HCl (Oxycodone Cr 20 Mg Tablet) 40 mg PO Q12 [facility] Last Admin: 02/01/21 09:28 Dose: 40 mg Documented by: Pantoprazole Sodium (Pantoprazole Sodium 40 Mg Tablet) 40 mg PO DAILY [facility] Last Admin: 02/01/21 09:28 Dose: 40 mg Documented by: Potassium Chloride (Potassium Chloride Oral Tablet 10 Meq) 10 meq PO BIDCM [facility] Last Admin: 02/01/21 16:53 Dose: 10 meq Documented by: Pregabalin (Pregabalin 75 Mg Capsule) 150 mg PO BID [facility] Last Admin: 02/01/21 09:28 Dose: 150 mg Documented by: Senna/Docusate Sodium (Senna/Docusate Sodium 1 Tablet) 2 tablet PO BID PRN PRN PRN Reason: Constipation Sodium Chloride (0.9% Saline Lock 10 Ml Syringe) 10 - 40 ml IV UD PRN PRN Reason: SALINE FLUSH Last Admin: 01/31/21 21:54 Dose: 10 ml Documented by: Spironolactone (Spironolactone 25 Mg Tablet) 25 mg PO DAILY [facility] Last Admin: 02/01/21 09:29 Dose: 25 mg Documented by: Tamsulosin HCl (Tamsulosin Hcl 0.4 Mg Capsule) 0.4 mg PO QHS [facility] Last Admin: 01/31/21 22:25 Dose: 0.4 mg Documented by: Medical Necessity - Tobacco Use Smoking Status: Former smoker Tobacco Use: Cigarettes Assessment/Plan All Active Problems Metastatic colon cancer to liver (Acute) Bilateral pleural effusion (Acute) #1 ascites-etiology unclear at this point, according to oncology, they are not absolutely sure the patient has recurrent cancer in his liver. #2 stage IV colon cancer with metastatic spread to the lungs-patient will undergo a right thoracentesis tomorrow, oncology told me by phone today that if the pleural fluid shows tumor cells that the patient will need to be hospice. #3 type 2 diabetes-continue to monitor blood sugars #4 hyperlipidemia #5 bipolar disorder Inpatient E&M: [id number] [facility] Hosp L2
[2021-02-01 18:04] LABS: International Normalized Ratio 1.3; Prothrombin Time (Protime)PT. 15.6 SECONDS (11.7-14.9)
[2021-02-01 18:05] LABS: Partial Thromboplast Time 33.5 Seconds (24.1-36.2)
[2021-02-01] MEDS: Tamsulosin HCl 0.4 MG Capsule PO (21:14)
[2021-02-01] MEDS: carBAMazepine 200 MG Tablet 600 MG PO (21:14)
[2021-02-01 21:31] LABS: Bedside Glucose 162 mg/dL (70-110)
[2021-02-02] VITALS (10 sets, daily range): BP systolic 102–137; BP diastolic 57–80; PULSE 93–109; RESP 16–18; TEMP 36.8–36.9; O2SAT 95–99
--- NOTE | 2021-02-02 | FLU_PTH ---
PATIENT: UYEN BRIGGS LOC: [facility] U#:[id number] AGE/SX: 55/M ROOM: [facility] RE01/31/[address]: Dr. Nico Alexander DO : 1965 BED: 1 DIS: 02/03/2021 SPEC #: [id number] RECD: 02/03/21 07:53 STATUS: GIANFRANCO REQ #: [id number] MAYRA: 02/02/21 00:[address]: Nico Alexander DEPT: CYTOLOGY RECD BY: Jone Isaac ENTERED: 02/03/21 07:53 SP TYPE: Fluid OTHR DR: MD Dr. Elizabeth Gale MD Dr. Prakash Chand, MD Tissues: THORACIC FLUID Procedures: Special Stain Group II Surgery Specimen Level IV Cytospin Fluid HEADER OPERATION: Ultrasound-guided right thoracentesis PRE-OP DIAGNOSIS: Ascites TISSUE SUBMITTED: Thoracentesis fluid for cytology DIAGNOSIS CYTOLOGY Thoracentesis fluid for cytology (cytospin): Negative for malignant cells. AM:she 02/04/2021 COMMENT Case is discussed with Dr. Alexander 02/04/[address] Jarrell. CYTOLOGY STUDY Slides are reviewed. CYTOLOGY GROSS Received is 100 ml of yellow cloudy fluid labeled with the patient's name and and designated per the requisition as thoracentesis. Submitted for cytology preparation including cell block. / she 02/03/2021 TC:5 CPT: 29158
[2021-02-02] MEDS: oxyCODONE 5 MG Tablet PO ×2 (03:09→23:16)
[2021-02-02] MEDS: Dicyclomine 10 MG Capsule 20 MG PO ×2 (06:30→11:58)
[2021-02-02] MEDS: Potassium Chloride Oral Tablet 10 MEQ PO ×2 (08:29→17:28)
[2021-02-02] MEDS: carBAMazepine 200 MG Tablet 400 MG PO (08:29)
[2021-02-02] MEDS: Pregabalin 75 MG Capsule 150 MG PO ×2 (08:29→21:23)
[2021-02-02] MEDS: Spironolactone 25 MG Tablet PO (08:29)
[2021-02-02] MEDS: Furosemide 40 MG/4 ML Vial IV ×2 (08:29→17:28)
[2021-02-02] MEDS: Pantoprazole Sodium 40 MG Tablet PO (08:29)
[2021-02-02 08:31] LABS: Bedside Glucose 88 mg/dL (70-110)
[2021-02-02 08:48] LABS: AST(SGOT) 104 U/L (15-37); Alanine Aminotransfer ALT/SGPT 97 U/L (16-61); Albumin, Serum 2.3 g/dL (3.2-5.0); Alkaline Phosphatase 304 U/L (45-117); Globulin 4.2 g/dL (2.2-4.2); Protein, Total 6.5 g/dL (6.4-8.2)
[2021-02-02 10:50] LABS: Bedside Glucose 165 mg/dL (70-110)
--- NOTE | 2021-02-02 11:07 | US_ITS ---
STUDY: ABDOMINAL ULTRASOUND - RIGHT UPPER QUADRANT REASON FOR VISIT: Male, 55 years old INCREASED BILIRUBIN, METASTATIC COLON CANCER -- LIVER/GALLBLADDER,PANCREAS TECHNIQUE: Ultrasound evaluation of the right upper quadrant was performed with real-time and static matos-scale imaging. TECHNICAL QUALITY: Adequate. COMPARISON: None. FINDINGS: Liver: The liver measures 15.5 cm. There is heterogeneous echogenicity of the liver. The bile ducts are dilated There is hepatic color flow. The direction of portal flow is hepatopetal. There is a cystic lesion in the right lobe measuring 6.6 x 4.8 x 3.2 cm. Gallbladder: Not visualized status post cholecystectomy. Common Bile Duct (C.B.D.): Not visualized.. Pancreas: Normal size of the head, body and tail of the pancreas. There is normal echogenicity of the pancreas. There is no demonstrated pancreatic mass or cyst. Right Kidney: Normal size of the right kidney. The right kidney measures 11.7 x 6.4 x 5.7 cm. Normal renal cortex. The right cortex measures 1.8 cm. There is no demonstrated renal mass or cyst. There is no right hydronephrosis. Mild ascites noted as well as a small right pleural effusion. US/Abdomen Limited IMPRESSION: Postsurgical changes status post cholecystectomy. Dilatation of the intrahepatic ducts but nonvisualization of the common bile duct. MRI/MRCP recommended for further evaluation if indicated Heterogeneous appearing liver with small cystic lesion in the right lobe Electronically Signed: Jae Mason MD at 16:02 EST , Service support ,
--- NOTE | 2021-02-02 11:49 | CASEMGMT ---
Patient has a Healthcare Power of [employer] Pants Outseamer and a Healthcare Living Will. He is aware they are not on file at [facility]. His Jessika is his Healthcare Power of Chainstit[employer] Pants Outseamer. Daksha WILCOX
--- NOTE | 2021-02-02 13:30 | US_ITS ---
PROCEDURE: ULTRASOUND GUIDED THORACENTESIS - right hemithorax CLINICAL HISTORY: Male, 55 years old. Right pleural effusion CONSENT: The risks, benefits and alternatives to the procedure were explained to the patient, and the patient agreed to the procedure and signed the consent. STERILE BARRIER TECHNIQUE: The following sterile barrier precautions were used during the procedure: hand hygiene; use of 2% chlorhexidine aseptic; use of a cap, mask, sterile gown, sterile gloves, sterile full body drape, and a large sterile sheet. SEDATION: Local anesthesia TECHNIQUE: Under the ultrasound guidance using all elements of maximum sterile technique and after infiltration of the skin and subcutaneous soft tissues with 10 mL of lidocaine 1% a 5 [place] Citizen drainage catheter is introduced in the lower part of the right hemithorax. 1100 mL of fluid were removed sample sent to lab for evaluation. The patient tolerated the procedure there was no immediate complication. US/Thoracentesis W US IMPRESSION: Successful ultrasound-guided thoracentesis on the right. Electronically Signed: Genesis Angel MD at 15:07 EST Tel , Service support ,
--- NOTE | 2021-02-02 14:00 | RAD_ITS ---
STUDY: X-RAY CHEST REASON FOR EXAM: Male, 55 years old. post thora TECHNIQUE: Inspiration and expiration views of the chest. COMPARISON: CT scan from 01/31/2021 FINDINGS: Mediport is seen on the left side, its tip is at the cavoatrial junction. Innumerable bilateral lung nodules are noted consistent with metastatic disease. The right pleural effusion has markedly decreased in size. There is no evidence of pneumothorax. Normal size heart. Normal mediastinum and ruby. Normal visualized pulmonary arteries. Normal visualized aortic arch and descending thoracic aorta. Normal visualized thoracic spine. There is degenerative osteoarthritis of the bilateral shoulders. There is no demonstrated abnormality of the visualized soft tissue structures of the upper abdomen. RAD/Chest Insp/Exp 2 View IMPRESSION: The right pleural effusion has markedly decreased in size. There is no evidence of pneumothorax. Electronically Signed: Genesis Angel MD at 15:06 EST Tel , Service support ,
[2021-02-02 14:25] LABS: Cytology, Body Fluid / CSF SEE PATHOLOGY REPORT
[2021-02-02 14:31] LABS: Bedside Glucose 117 mg/dL (70-110)
[2021-02-02 16:26] LABS: Bedside Glucose 141 mg/dL (70-110)
--- NOTE | 2021-02-02 16:56 | MRI_ITS ---
STUDY: MR MRCP WITHOUT CONTRAST REASON FOR EXAM: Male, 55 years old. Bile duct obstruction. Metastatic colon cancer to the lungs. TECHNIQUE: Standard MRCP technique was utilized. COMPARISON: CT of the abdomen and pelvis, 01/31/2021. Abdominal ultrasound, 02/02/2021. FINDINGS: Gall Bladder: Gallbladder is surgically absent. Cystic duct: Prominent cystic duct stump. Intrahepatic ducts: Marked dilatation of the left intrahepatic bile ducts. The right appear grossly normal in size. Common hepatic duct: Nonvisualization of the common hepatic duct. Just beyond the confluence of the right and left main intrahepatic bile ducts. Common bile duct: Only the portion of the common bile duct within the pancreatic head is visualized. It appears normal in diameter without filling defect. Pancreatic duct: Normal with no demonstrated fixed filling defect, dilation or stricture. There is marked reduction of the right pleural effusion when compared to the prior CT. Small bilateral pleural effusions are noted. The liver is normal in size. There is prominence of caudate and left lateral lobe. Again seen is a fluid collection in the region of segment 4 of the liver with surrounding surgical clips. No other masses seen in the liver. Normal spleen. Normal pancreas. Normal adrenal glands. Normal kidneys. Normal aorta and IVC. Normal retroperitoneum. Hiatal hernia. Otherwise normal stomach. Normal visualized small bowel. Feces is seen throughout the colon. There is diffuse ascites again noted. Anasarca the flanks. The abdominal wall is otherwise unremarkable.. Normal lumbar spine. MRI/MRCP Abdomen without Contrast IMPRESSION: 1. Dilatation of the left intrahepatic bile ducts. The the ducts from the right lobe appear normal. 2. Nonvisualization of the common hepatic duct and CBD to the level of the pancreatic head. The distal CBD appears normal. Possibility of a portal hilar mass. Lymph nodes are seen in the right hilum on the prior CT. ERCP may be required to better demonstrate these findings 3. Dilated cystic duct stump. The gallbladder is absent. 4. Diffuse ascites. 5. Stable fluid collection in segment 4 of liver with surgical clips. 6. Splenomegaly. 7. Decreased right pleural effusion. Electronically Signed: Elijah Read DO at 19:46 EST Tel [phone], Service support ,
[2021-02-02] MEDS: carBAMazepine 200 MG Tablet 600 MG PO (21:25)
[2021-02-02] MEDS: Tamsulosin HCl 0.4 MG Capsule PO (21:25)
[2021-02-02 21:31] LABS: Bedside Glucose 186 mg/dL (70-110)
[2021-02-03] VITALS (13 sets, daily range): BP systolic 114–132; BP diastolic 69–86; PULSE 98–107; RESP 16–20; TEMP 36.6–37; O2SAT 88–100; BMI 28.3; BMI 27.2
--- NOTE | 2021-02-03 | FLU_PTH ---
PATIENT: UYEN BRIGGS LOC: [facility] U#:[id number] AGE/SX: 55/M ROOM: [facility] RE01/31/[address]: Dr. Nico Alexander DO : 1965 BED: 1 DIS: 02/03/2021 SPEC #: [id number] RECD: 02/03/21 10:46 STATUS: GIANFRANCO REQ #: [id number] MAYRA: 02/03/21 00:[address]: Jasbir Lainez DEPT: CYTOLOGY RECD BY: Jone Isaac ENTERED: 02/03/21 10:47 SP TYPE: Fluid OTHR DR: MD Dr. Elizabeth Gale MD Dr. Mark Tereletsky, DO Dr. Prakash Chand, MD Tissues: A - Bile duct, NOS C - Bile duct, NOS Procedures: Special Stain Group II Surgery Specimen Level IV Comments: @ Ordering doctor for SSII edited from to @ sonali SANTOS at 02/03/21 1303 @ Ordering doctor for SUIV edited from to @ by TOM at 02/03/21 1303 @ Submitting doctor edited from to @ by TOM at 02/03/21 1303 HEADER OPERATION: ERCP PRE-OP DIAGNOSIS: Dilation of intrahepatic bile ducts, ? periportal mass TISSUE SUBMITTED: A - Common bile duct brushing slides x3, B - Tip of brush DIAGNOSIS CYTOLOGY A. Bile duct, brushings (smears): Possible malignant cells consistent with non-small cell carcinoma. B. Tissue from cytology brush (cytospin and cell block): Possible malignant cells consistent with non-small cell carcinoma. See comment. AM:she 02/04/2021 COMMENT B. Immunohistochemistry ([id number]) supports the above diagnosis. Case is discussed with Dr. Alexander 02/04/[address] Jarrell. Case has been reviewed in consultation with Dr. Rudd who concurs with the above diagnosis. IDC:SJ CYTOLOGY STUDY Slides are reviewed. CYTOLOGY GROSS A - Received are three smears labeled with the patient's name and designated per the requisition as common bile duct. Submitted for staining. B - Received is a metallic endoscopic cytobrush with adherent minute fragments of graf-red tissue brush in 2 ml of clear red fluid and labeled with the patient's name and and designated per the requisition as brush. The material is dislodged from the brush and submitted for cytology preparation including cell block. / she 02/03/2021 TC:0 CPT: 78417, 77478
--- NOTE | 2021-02-03 | IMM_PTH ---
PATIENT: UYEN BRIGGS LOC: [facility] U#:[id number] AGE/SX: 55/M ROOM: [facility] RE01/31/[address]: Dr. Nico Alexander DO : 1965 BED: 1 DIS: 02/03/2021 SPEC #: [id number] RECD: 02/04/21 11:58 STATUS: GIANFRANCO REQ #: [id number] MAYRA: 02/03/21 00:[address]: Jasbir Lainez DEPT: IMMUNOHISTOCHEMISTRY RECD BY: Sara Solis ENTERED: 02/04/21 12:00 SP TYPE: IMMUNO OTHR DR: MD Dr. Nico Madden DO Dr. Prakash Chand, MD Tissues: B - Bile duct, NOS Procedures: Synapto (add) CHROMO (add) P53 (add) Pankeratin (initial) PHYSICIAN & INSTITUTION [place] [id number] SPECIMEN INFORMATION: Tissue Source: B - Bile duct brushings Clinical Info: ? periportal mass Specimen Number: [id number] CPT code: 30669, 49005 x3 METHODOLOGY: Deparaffinized sections of prefer/formalin-fixed tissue or PAP/DQ stained slides are incubated with monoclonal/polyclonal antibodies/oligonucleotide probes. Localization is made via biotin free immunoperoxidase method. Appropriate controls are performed and reacted as expected. Results on target cell population are indicated in the following table: RESULTS: ANTIBODY / CLONE RESULT Block B AE1-3 (AE1/AE3/PCK26) positive Chromo (LK2H10) negative Synapto (polyclonal) negative P53 (DO-7) positive, rare These tests were developed and their performance characteristics determined by [facility]. They may not have been cleared or approved by the U.S. Food and Drug Administration. The FDA has determined that such clearance or approval is not necessary. The above immunohistochemical/dualISH markers are ordered and reviewed by the Pathologist. INTERPRETATION: B. Bile duct brushings: Atypical cells consistent with malignancy. AM:she 02/07/2021
--- NOTE | 2021-02-03 07:21 | PCM.CONS.GEN ---
Problem List (1) Obstructive jaundice Status: Acute Reason for Consult Date of Consultation: 02/03/21 History of Present Illness: The patient is a 55 year old M patient came in with fatigue and abdominal pain and was found to have ascites as well as pleural effusions. The patient has a history of colon cancer with metastatic disease to the liver which was resected. The patient had thoracentesis as well as paracentesis during this visit. Patient said he a lot of abdominal pain overnight. Past Medical History Past Medical History (Chronic Problems): Chronic Problems Small bowel obstruction (Chronic) Ascites (Chronic) Neurogenic syncope (Chronic) DM type 2 (diabetes mellitus, type 2) (Chronic) Colon cancer (Chronic) Bipolar disorder (Chronic) Hyperlipidemia (Chronic) Allergies amoxicillin trihydrate [From Augmentin] Allergy (Intermediate, Verified 10/12/20 09:01) Swelling eszopiclone [From Lunesta] Allergy (Mild, Verified 10/12/20 09:01) Rash tetracycline [Tetracycline] Allergy (Unknown, Verified 01/17/21 16:18) Unknown aspirin [From Fiorinal] Allergy (Verified 01/17/21 16:18) Unknown butalbital [From Fiorinal] Allergy (Verified 10/12/20 09:01) Unknown caffeine [From Fiorinal] Allergy (Verified 01/17/21 16:18) Unknown coconut Allergy (Verified 01/17/21 16:18) Anaphylaxis coconut oil Allergy (Verified 01/17/21 16:18) Anaphylaxis divalproex sodium [From Depakote] Allergy (Verified 01/17/21 16:18) Unknown fludrocortisone acetate [From Florinef] Allergy (Verified 01/17/21 16:18) Unknown ketorolac tromethamine [From Toradol] Allergy (Verified 01/17/21 16:18) Unknown meperidine HCl [From Demerol] Allergy (Verified 01/17/21 16:18) Swelling palm kernel oil Allergy (Verified 01/31/21 15:29) Food Allergy Penicillins Allergy (Verified 01/17/21 16:18) Swelling potassium clavulanate [From Augmentin] Allergy (Verified 01/17/21 16:18) Swelling sitagliptin phosphate [From Januvia] Allergy (Verified 01/17/21 16:18) Other zolpidem tartrate [From Ambien] Allergy (Verified 01/17/21 16:18) Unknown metformin Adverse Reaction (Mild, Verified 01/17/21 16:18) Nausea doxycycline Adverse Reaction (Verified 01/17/21 16:18) Unknown morphine Allergy (Severe, Uncoded 01/17/21 16:18) Swelling Home Medications: Ambulatory Orders Medication Instructions Recorded Carbamazepine [Tegretol] 600 mg PO QHS 10/29/13 Carbamazepine [Tegretol] 400 mg PO BREAKFAST 09/10/14 Pregabalin [Lyrica] 150 mg PO BID 09/11/14 Insulin Aspart [Novolog Flexpen] 18 units SC TIDCM 01/27/15 Lorazepam [Ativan] 2 mg PO Q8H PRN PRN 05/08/15 Omeprazole [Prilosec] 40 mg PO DAILY 12/05/16 Tamsulosin HCl [Flomax] 0.4 mg PO QHS 12/05/16 Cyclobenzaprine HCl 10 mg PO PRN PRN 01/08/18 Insulin Degludec [Tresiba 90 unit SQ QHS 01/08/18 Flextouch U-100] Metoclopramide [Reglan] 10 mg PO PRN PRN 01/08/18 Multivitamins,Therapeutic 1 tablet PO DAILY 01/08/18 [Multivitamin] Pyridoxine HCl (Vitamin B6) [B-6] 200 mg PO DAILY 01/08/18 Dicyclomine HCl [Bentyl] 20 mg PO TIDAC 10/12/20 Furosemide 40 mg PO DAILY 10/12/20 Potassium Chloride 10 meq PO BID 10/12/20 Green Tea [place] Extract [Green Tea] 500 mg PO DAILY 01/17/21 Oxycodone CR [Oxycontin] 40 mg PO Q12H 01/17/21 glipiZIDE [Glucotrol] 5 mg PO DAILY@0730 01/17/21 Hydrocodone/Acetaminophen 1 tab PO Q4H PRN PRN 01/31/21 [Hydrocodone-Acetamin 10-325 mg] Spironolactone [Aldactone] 25 mg PO DAILY 01/31/21 Surgical History: - - right hemicolectomy for transverse colon cancer, Liver resections, appendectomy, port placement, right shoulder surgery ?3, right knee surgery ?1. Psychiatric History: Bipolar, Depression, Prior suicide attempt - 1 year ago suicide attempt, EtOH. Lives: Spouse/ Significant Other Smoking Status: Former smoker Tobacco Use: Cigarettes Alcohol: None Drugs: None - *Family History Paternal History Items: No pertinent history, - - No family history of colonic cancer in first-degree family relative. Maternal History Items: No pertinent history Review of Systems Constitutional: Denies: Anorexia, Fever Respiratory: Reports: Shortness of Breath. Denies: Cough Gastrointestinal: Reports: Abdominal Pain Musculoskeletal: Reports: Joint Tenderness Psychiatric: Denies: Anxiety Hematologic/ Lymphatic: Denies: Adenopathy Patient Problems: Active and Suspected Problems Metastatic colon cancer to liver (Acute) Bilateral pleural effusion (Acute) - Physical Exam Vitals/I&O's: Vital Signs Temp Pulse Resp BP Pulse Ox 98.2 F 99 16 122/79 H 94 02/03/21 03:20 02/03/21 03:20 02/03/21 03:20 02/03/21 03:20 02/03/21 03:20 Oxygen Delivery Method [5] Room Air Oxygen Delivery Method [4] Room Air Oxygen Delivery Method [3] Room Air Oxygen Delivery Method [2] Room Air Oxygen Delivery Method [1 ( Room Air Initial Baseline)] Oxygen Delivery Method Room Air Weight: 168 lb 13.985 oz Body Mass Index (BMI) 28.3 Finger Stick Blood Glucose 338 Intake and Output for Last 24 Hours 02/01/21 02/02/21 02/03/21 23:59 23:59 23:59 Intake Total 1660 / 1660 1330 / 1330 0 / 0 Output Total 5525 / 5525 3475 / 3475 300 / 300 Balance -3865 / -3865 -2145 / -2145 -300 / -300 General: Alert, Oriented x3 Neck: Negative Carotid Bruits Cardiovascular: Regular rate, Regular Rhythm Abdomen: Soft, Distended Extremities: No clubbing Musculoskeletal: No Muscle Wasting Neurological: Cranial nerves II-XII grossly intact Psych/Mental Status: Normal Affect Microbiology Past 72 Hours 01/31/21 20:00 Mucosa - Nose SARS-CoV-2 Antigen (Rapid) - Final Laboratory Results 02/02/21 08:05: Total Bilirubin 4.70 H, Direct Bilirubin 3.90 H, AST 104 H, ALT 97 H, Alkaline Phosphatase 304 H, Total Protein 6.5, Albumin 2.3 L, Globulin 4.2 02/02/21 08:18: POC Glucose 88 02/02/21 10:47: POC Glucose 165 H 02/02/21 13:45: Miscellaneous Cytology Pending 02/02/21 14:26: POC Glucose 117 H 02/02/21 16:18: POC Glucose 141 H 02/02/21 21:28: POC Glucose 186 H 02/03/21 06:02: Total Bilirubin Pending, Direct Bilirubin Pending, AST Pending, ALT Pending, Alkaline Phosphatase Pending, Total Protein Pending, Albumin Pending Clinical Impression(s) from Imaging Studies Abdomen Ultrasound 02/02/21 11:07 IMPRESSION: Postsurgical changes status post cholecystectomy. Dilatation of the intrahepatic ducts but nonvisualization of the common bile duct. MRI/MRCP recommended for further evaluation if indicated Heterogeneous appearing liver with small cystic lesion in the right lobe Electronically Signed: Jae Mason MD at 16:02 EST , Service support , Thoracentesis Ultrasound 02/02/21 13:30 IMPRESSION: Successful ultrasound-guided thoracentesis on the right. Electronically Signed: Genesis Angel MD at 15:07 EST Tel , Service support , Chest X-Ray 02/02/21 14:00 IMPRESSION: The right pleural effusion has markedly decreased in size. There is no evidence of pneumothorax. Electronically Signed: Genesis Angel MD at 15:06 EST Tel , Service support , MRCP 02/02/21 16:56 IMPRESSION: 1. Dilatation of the left intrahepatic bile ducts. The the ducts from the right lobe appear normal. 2. Nonvisualization of the common hepatic duct and CBD to the level of the pancreatic head. The distal CBD appears normal. Possibility of a portal hilar mass. Lymph nodes are seen in the right hilum on the prior CT. ERCP may be required to better demonstrate these findings 3. Dilated cystic duct stump. The gallbladder is absent. 4. Diffuse ascites. 5. Stable fluid collection in segment 4 of liver with surgical clips. 6. Splenomegaly. 7. Decreased right pleural effusion. Electronically Signed: Elijah Read DO at 19:46 EST Tel [phone], Service support , Current Medications Acetaminophen (Acetaminophen 325 Mg Tablet) 650 mg PO Q6H PRN PRN PRN Reason: Pain Score 1-10/Temp > 100.7 F Al Hydroxide/Mg Hydroxide (Mag Hydrox/Al Hydrox/Simeth 30 Ml Udc) 30 ml PO Q6H PRN PRN PRN Reason: Gastric Burning Albuterol Sulfate (Albuterol 2.5 Mg/3 Ml Vial.Neb.) 2.5 mg INHALATION Q2H PRN PRN PRN Reason: SOB/Wheezing Carbamazepine (Carbamazepine 200 Mg Tablet) 400 mg PO BREAKFAST [facility] Last Admin: 02/02/21 08:29 Dose: 400 mg Documented by: Carbamazepine (Carbamazepine 200 Mg Tablet) 600 mg PO QHS [facility] Last Admin: 02/02/21 21:25 Dose: 600 mg Documented by: Cyclobenzaprine HCl (Cyclobenzaprine Hcl 10 Mg Tablet) 10 mg PO TID PRN PRN PRN Reason: MUSCLE SPASM Dextrose (Dextrose 50%-Water 25 Gm/50 Ml Disp.Syrin) 0 gm IV X1 PRN; Protocol PRN Reason: Hypoglycemia Last Admin: 01/31/21 21:51 Dose: 25 gm Documented by: Dicyclomine HCl (Dicyclomine 10 Mg Capsule) 20 mg PO TIDAC [facility] Last Admin: 02/03/21 06:00 Dose: Not Given Documented by: Enoxaparin Sodium (Enoxaparin 40 Mg/0.4 Ml Syringe) 40 mg SC DAILY [facility] Last Admin: 01/31/21 22:25 Dose: Not Given Documented by: Furosemide (Furosemide 40 Mg/4 Ml Vial) 40 mg IV BID@1000,1800 [facility] Last Admin: 02/02/21 17:28 Dose: 40 mg Documented by: Glucagon (Glucagon 1 Mg/Ml Syringe) 1 mg IM .X1 PRN PRN Reason: Hypoglycemia Insulin Glargine (Insulin Glargine 100 Units/Ml Pen) 10 units SC BREAKFAST [facility] Last Admin: 02/02/21 08:22 Dose: Not Given Documented by: Insulin Human Lispro (Insulin Lispro 100 Unit/Ml Insuln.Pen) 15 unit SC TIDCM [facility] Last Admin: 02/02/21 17:30 Dose: Not Given Documented by: Lorazepam (Lorazepam 1 Mg Tablet) 2 mg PO Q8H PRN PRN PRN Reason: ANXIETY Metoclopramide HCl (Metoclopramide 10 Mg Tablet) 10 mg PO Q8H PRN PRN PRN Reason: GI CRAMPING Morphine Sulfate (Morphine 2 Mg/Ml Syringe) 2 mg IV Q3H PRN PRN PRN Reason: Pain Score 6-10 Nitroglycerin (Nitroglycerin (Inpatient Use) 0.4 Mg Tab.Subl) 0.4 mg SL Q5M PRN PRN Reason: CARDIAC/CHEST PAIN Nutritional Formula (Lactose Free) (Ensure Enlive 120 Ml Liquid) 120 ml PO 4X/DAY [facility] Last Admin: 02/02/21 21:17 Dose: Not Given Documented by: Ondansetron HCl (Ondansetron 4 Mg/2 Ml Vial) 4 mg IV Q8H PRN PRN PRN Reason: NAUSEA/VOMITING Oxycodone HCl (Oxycodone 5 Mg Tablet) 5 mg PO Q4H PRN PRN PRN Reason: Pain Score 4-5 Last Admin: 02/02/21 23:16 Dose: 5 mg Documented by: Oxycodone HCl (Oxycodone Cr 20 Mg Tablet) 40 mg PO Q12 [facility] Last Admin: 02/02/21 21:23 Dose: 40 mg Documented by: Pantoprazole Sodium (Pantoprazole Sodium 40 Mg Tablet) 40 mg PO DAILY [facility] Last Admin: 02/02/21 08:29 Dose: 40 mg Documented by: Potassium Chloride (Potassium Chloride Oral Tablet 10 Meq) 10 meq PO BIDCM [facility] Last Admin: 02/02/21 17:28 Dose: 10 meq Documented by: Pregabalin (Pregabalin 75 Mg Capsule) 150 mg PO BID [facility] Last Admin: 02/02/21 21:23 Dose: 150 mg Documented by: Senna/Docusate Sodium (Senna/Docusate Sodium 1 Tablet) 2 tablet PO BID PRN PRN PRN Reason: Constipation Sodium Chloride (0.9% Saline Lock 10 Ml Syringe) 10 - 40 ml IV UD PRN PRN Reason: SALINE FLUSH Last Admin: 01/31/21 21:54 Dose: 10 ml Documented by: Spironolactone (Spironolactone 25 Mg Tablet) 25 mg PO DAILY [facility] Last Admin: 02/02/21 08:29 Dose: 25 mg Documented by: Tamsulosin HCl (Tamsulosin Hcl 0.4 Mg Capsule) 0.4 mg PO QHS [facility] Last Admin: 02/02/21 21:25 Dose: 0.4 mg Documented by: Assessment/Plan All Active Problems Metastatic colon cancer to liver (Acute) Bilateral pleural effusion (Acute) Obstructive jaundice (Acute) 55-year-old male with obstructive jaundice 1. Patient had ascites on admission which is a new finding for him. He has had paracentesis and thoracentesis. The patient had elevated liver enzymes which are continuing to rise. The patient had MRCP yesterday which showed dilation of the intrahepatic bile ducts especially on the left with nonvisualization of the mid common bile duct and revisualization of the common bile duct at the pancreas. I believe the patient has compression and there was question of periportal mass. 2. I discussed his MRI findings with him and his . I discussed ERCP with stent placement. I discussed the risks of the procedure such as bleeding, infection, perforation of the bile duct or bowel, pancreatitis. I explained stent placement to the patient. I explained that this would not be a treatment for this but more of a solution to his obstructive jaundice to allow the bile to flow and help with abdominal pain. The patient will need to see his oncologist to discuss treatment options for this mass. 3. I will proceed with ERCP this morning. Jasbir Lainez MD Pager: [facility] [address] [place] [address] Office:
[2021-02-03 07:26] LABS: AST(SGOT) 106 U/L (15-37); Alanine Aminotransfer ALT/SGPT 97 U/L (16-61); Albumin, Serum 2.2 g/dL (3.2-5.0); Alkaline Phosphatase 312 U/L (45-117); Bilirubin, Direct 3.88 mg/dL (0.00-0.30); Globulin 4.1 g/dL (2.2-4.2); Protein, Total 6.3 g/dL (6.4-8.2)
[2021-02-03 07:55] LABS: Bedside Glucose 112 mg/dL (70-110)
--- NOTE | 2021-02-03 08:40 | RAD_ITS ---
ERCP INDICATION: Abdominal pain. TECHNIQUE: Fluoroscopy of the abdomen was utilized upper arm during ERCP and 8 images are somewhat limited for interpretation. FINDINGS: Examination the biliary tree demonstrates a severe stricture of the proximal common bile duct which was treated with biliary stent placement. IMPRESSION: Biliary stricture treated with stent placement. Electronically Signed: Bill Canada MD at 11:40 EST Tel , Service support , RAD/ERCP Biliary Only
--- NOTE | 2021-02-03 09:15 | OP.ERCP_ITS ---
Patient Name: Holden Nayak Procedure Date: 02/03/2021 8:06 AM Date of : 1965 Age: 55 Procedure: ERCP Indications: Abnormal MRCP Providers: Jasbir Lainez MD Medicines: Monitored Anesthesia Care Patient Profile: This is a 55 year old male. Refer to note in patient chart for documentation of history and physical. Complications: No immediate complications. Procedure: Pre-Anesthesia Assessment: - Prior to the procedure, a History and Physical was performed, and patient medications and allergies were reviewed. The patient's tolerance of previous anesthesia was also reviewed. The risks and benefits of the procedure and the sedation options and risks were discussed with the patient. All questions were answered, and informed consent was obtained. Prior Anticoagulants: The patient has taken no previous anticoagulant or antiplatelet agents. After reviewing the risks and benefits, the patient was deemed in satisfactory condition to undergo the procedure. After obtaining informed consent, the scope was passed under direct vision. Throughout the procedure, the patient's blood pressure, pulse, and oxygen saturations were monitored continuously. The duodenoscope was introduced through the mouth, and advanced to the duodenum and used to inject contrast into the bile duct. The ERCP was accomplished without difficulty. The patient tolerated the procedure well. Scope In: 8:40:46 AM Scope Out: 9:00:48 AM Total Procedure Duration Time 0 hours 20 minutes 2 seconds Findings: A 0.035 inch x 260 cm straight Dreamwire was passed into the biliary tree. The sphincterotome was passed over the guidewire and the bile duct was then deeply cannulated. Contrast was injected. I personally interpreted the bile duct images. There was brisk flow of contrast through the ducts. The middle third of the main bile duct was partially obstructed by what appeared to be a mass. Biliary sphincterotomy was made with a monofilament sphincterotome using ERBE electrocautery. There was no post-sphincterotomy bleeding. Cells for cytology were obtained by brushing in the middle third of the main bile duct. One 10 Fr by 5 cm plastic stent with a single external flap and a single internal flap was placed into the common bile duct. Bile flowed through the stent. The stent was in good position. Impression: - A biliary tract obstruction secondary to what appeared to be a mass was found in the middle third of the main duct. - A biliary sphincterotomy was performed. - Cells for cytology obtained in the middle third of the main bile duct. - One plastic stent was placed into the common bile duct. Recommendation: - [facility]. Procedure Code(s): --- Professional --- 34474, Endoscopic retrograde cholangiopancreatography (ERCP); with placement of endoscopic stent into biliary or pancreatic duct, including pre- and post-dilation and guide wire passage, when performed, including sphincterotomy, when performed, each stent Diagnosis Code(s): --- Professional --- K83.1, Obstruction of bile duct R93.2, Abnormal findings on diagnostic imaging of liver and biliary tract CPT copyright 2017 [employer]. All rights reserved. The codes documented in this report are preliminary and upon extractor operator solvent process review may be revised to meet current compliance requirements. Jasbir Lainez MD 02/03/2021 9:15:31 AM This report has been signed electronically. Number of Addenda: 0 Note Initiated On: 02/03/2021 8:06 AM
--- NOTE | 2021-02-03 09:16 | OP.CCLET_ITS ---
02/03/2021 Elizabeth Rodriguez [address] [place] [address] Re : ERCP procedure for Holden Nayak Dear Dr. Rodriguez This procedure was performed on January. My impressions and recommendations are as follows: Impressions : - A biliary tract obstruction secondary to what appeared to be a mass was found in the middle third of the main duct. - A biliary sphincterotomy was performed. - Cells for cytology obtained in the middle third of the main bile duct. - One plastic stent was placed into the common bile duct. Recommendations : - [facility]. My findings are described in the full procedure note, which is enclosed. If I can be of further assistance, please feel free to contact me at Doctor phone number(s): , Work: . Sincerely, Jasbir Lainez MD 02/03/2021 9:15:31 AM This report has been signed electronically.
[2021-02-03] MEDS: 0.9% Normal Saline 1,000 ML 100 ML IV (09:20)
[2021-02-03 09:36] LABS: Bedside Glucose 100 mg/dL (70-110)
[2021-02-03 11:01] LABS: Bedside Glucose 119 mg/dL (70-110)
--- NOTE | 2021-02-03 11:49 | DCINST_ITS ---
- Discharge Diagnoses Current Active Problems: Current Active and Chronic Problems Small bowel obstruction (Chronic) Metastatic colon cancer to liver (Acute) Ascites (Chronic) Bilateral pleural effusion (Acute) Obstructive jaundice (Acute) Neurogenic syncope (Chronic) DM type 2 (diabetes mellitus, type 2) (Chronic) Colon cancer (Chronic) Bipolar disorder (Chronic) Hyperlipidemia (Chronic) You will use the following diet at home:: Calorie/Carbohydrate Controlled (specify 1200, 1400, etc) - 1800 amara diet Your food should be the consistency of: Regular Your liquids should be the consistency of: Regular/Thin Discharge Activity: Return to Normal Activity Weight Bearing Status: Full weight bearing Allergies/Adverse Reactions: Allergies amoxicillin trihydrate [From Augmentin] Allergy (Intermediate, Verified 10/12/20 09:01) Swelling eszopiclone [From Lunesta] Allergy (Mild, Verified 10/12/20 09:01) Rash tetracycline [Tetracycline] Allergy (Unknown, Verified 01/17/21 16:18) Unknown aspirin [From Fiorinal] Allergy (Verified 01/17/21 16:18) Unknown butalbital [From Fiorinal] Allergy (Verified 10/12/20 09:01) Unknown caffeine [From Fiorinal] Allergy (Verified 01/17/21 16:18) Unknown coconut Allergy (Verified 01/17/21 16:18) Anaphylaxis coconut oil Allergy (Verified 01/17/21 16:18) Anaphylaxis divalproex sodium [From Depakote] Allergy (Verified 01/17/21 16:18) Unknown fludrocortisone acetate [From Florinef] Allergy (Verified 01/17/21 16:18) Unknown ketorolac tromethamine [From Toradol] Allergy (Verified 01/17/21 16:18) Unknown meperidine HCl [From Demerol] Allergy (Verified 01/17/21 16:18) Swelling palm kernel oil Allergy (Verified 01/31/21 15:29) Food Allergy Penicillins Allergy (Verified 01/17/21 16:18) Swelling potassium clavulanate [From Augmentin] Allergy (Verified 01/17/21 16:18) Swelling sitagliptin phosphate [From Januvia] Allergy (Verified 01/17/21 16:18) Other zolpidem tartrate [From Ambien] Allergy (Verified 01/17/21 16:18) Unknown metformin Adverse Reaction (Mild, Verified 01/17/21 16:18) Nausea doxycycline Adverse Reaction (Verified 01/17/21 16:18) Unknown morphine Allergy (Severe, Uncoded 01/17/21 16:18) Swelling Medications to take at Discharge Carbamazepine [Tegretol] 600 mg PO QHS 10/29/13 Carbamazepine [Tegretol] 400 mg PO BREAKFAST 09/10/14 Pregabalin [Lyrica] 150 mg PO BID 09/11/14 Lorazepam [Ativan] 2 mg PO Q8H PRN PRN 05/08/15 Omeprazole [Prilosec] 40 mg PO DAILY 12/05/16 Tamsulosin HCl [Flomax] 0.4 mg PO QHS 12/05/16 Cyclobenzaprine HCl 10 mg PO PRN PRN 01/08/18 Metoclopramide [Reglan] 10 mg PO PRN PRN 01/08/18 Multivitamins,Therapeutic [Multivitamin] 1 tablet PO DAILY 01/08/18 Pyridoxine HCl (Vitamin B6) [B-6] 200 mg PO DAILY 01/08/18 Dicyclomine HCl [Bentyl] 20 mg PO TIDAC 10/12/20 Furosemide 40 mg PO DAILY 10/12/20 Potassium Chloride 10 meq PO BID 10/12/20 Green Tea [place] Extract [Green Tea] 500 mg PO DAILY 01/17/21 Oxycodone CR [Oxycontin] 40 mg PO Q12H 01/17/21 Hydrocodone/Acetaminophen [Hydrocodone-Acetamin 10-325 mg] 1 tab PO Q4H PRN PRN 01/31/21 Spironolactone [Aldactone] 25 mg PO DAILY 01/31/21 Insulin Aspart [Novolog Flexpen] 10 units SC TIDCM #0 02/03/21 Insulin Degludec [Tresiba Flextouch U-100] 10 unit SQ QHS #0 02/03/21 Primary Care Physician: Elizabeth Rodriguez MD [Primary Care Provider] - Test Results: Test results from this visit will be discussed in further detail at your follow- up appointment, if applicable. Please Follow Up With: Farhan Sanchez DO When: tomorrow at 11:15
[2021-02-03] MEDS: carBAMazepine 200 MG Tablet 400 MG PO (11:50)
[2021-02-03] MEDS: Spironolactone 25 MG Tablet PO (11:51)
[2021-02-03] MEDS: Pantoprazole Sodium 40 MG Tablet PO (11:51)
[2021-02-03] MEDS: Dicyclomine 10 MG Capsule 20 MG PO (11:51)
[2021-02-03] MEDS: 0.9% Saline Lock 10 ML Syringe IV (11:52)
[2021-02-03] MEDS: Furosemide 40 MG/4 ML Vial IV (11:52)
[2021-02-03] MEDS: Pregabalin 75 MG Capsule 150 MG PO (11:54)
--- NOTE | 2021-02-03 14:30 | PHA.DC.MR ---
Pharmacy Service has performed discharge medication reconciliation for this patient. No new medications at time of discharge. Medications reviewed are from previously reported home medications. Home Medications Carbamazepine [Tegretol] 600 mg PO QHS 10/29/13 Carbamazepine [Tegretol] 400 mg PO BREAKFAST 09/10/14 Pregabalin [Lyrica] 150 mg PO BID 09/11/14 Lorazepam [Ativan] 2 mg PO Q8H PRN PRN 05/08/15 Omeprazole [Prilosec] 40 mg PO DAILY 12/05/16 Tamsulosin HCl [Flomax] 0.4 mg PO QHS 12/05/16 Cyclobenzaprine HCl 10 mg PO PRN PRN 01/08/18 Metoclopramide [Reglan] 10 mg PO PRN PRN 01/08/18 Multivitamins,Therapeutic [Multivitamin] 1 tablet PO DAILY 01/08/18 Pyridoxine HCl (Vitamin B6) [B-6] 200 mg PO DAILY 01/08/18 Dicyclomine HCl [Bentyl] 20 mg PO TIDAC 10/12/20 Furosemide 40 mg PO DAILY 10/12/20 Potassium Chloride 10 meq PO BID 10/12/20 Green Tea [place] Extract [Green Tea] 500 mg PO DAILY 01/17/21 Oxycodone CR [Oxycontin] 40 mg PO Q12H 01/17/21 Hydrocodone/Acetaminophen [Hydrocodone-Acetamin 10-325 mg] 1 tab PO Q4H PRN PRN 01/31/21 Spironolactone [Aldactone] 25 mg PO DAILY 01/31/21 Insulin Aspart [Novolog Flexpen] 10 units SC TIDCM #0 02/03/21 Insulin Degludec [Tresiba Flextouch U-100] 10 unit SQ QHS #0 02/03/21 The patient's discharge medication list was reviewed for discrepancies and discrepancies were resolved.
--- NOTE | 2021-02-03 15:28 | PCM.DC.SUM ---
Discharge Date and Diagnosis - Problem List Patient Problems: Active and Suspected Problems Metastatic colon cancer to liver (Suspected) Bilateral pleural effusion (Acute) Obstructive jaundice (Acute) Date of Admission: 01/31/21 Date of Discharge: 02/03/21 - Primary Discharge Diagnosis Acute Problems: Active Problems #1 intractable ascites-etiology unclear #2 bilateral pleural effusions-etiology unclear #3 Common bile duct obstruction secondary to neoplasm #4 metastatic adenocarcinoma of the colon #5 obstructive jaundice secondary to common bile duct obstruction from neoplasm #6 type 2 diabetes - Secondary Discharge Diagnosis Chronic Problems: Chronic Problems Small bowel obstruction (Chronic) Ascites (Chronic) Neurogenic syncope (Chronic) DM type 2 (diabetes mellitus, type 2) (Chronic) Colon cancer (Chronic) Bipolar disorder (Chronic) Hyperlipidemia (Chronic) Hospital Course and Treatment Imaging Results: 02/03/21 08:40 ERCP Biliary Only [RAD] Routine O.R. Fluoro for C-Arm [RAD] Routine Operations: None Procedures: Paracentesis, Thoracentesis, - - ERCP with biliary stent placement Summary of Care Provided: The patient is a 55 year old M was seen in the emergency room at [facility] with a chief complaint of abdominal distention and discomfort along with right-sided chest pain. Patient had a history of ascites from an unknown reason and had a paracentesis performed in the emergency room approximately 2 weeks prior. Work-up in the emergency room included a CTA of the chest, abdomen, and pelvis which showed a large amount of ascites present in the abdominal cavity along with bilateral pleural effusions worse on the right. White blood cell count was 3.7, hemoglobin was 9.5, platelet count was 73,000. Patient's total bilirubin was elevated at 3.7 and several of his liver enzymes were also elevated. Patient's lipase was negative. Patient was given Dilaudid for pain control in the emergency room, he was admitted to PCU and placed on IV Lasix. Patient underwent a paracentesis on 02/01/2021 with removal of 2650 cc of fluid, unfortunately this fluid was not sent down for analysis. Repeat lab work showed his bilirubin to continue to elevate further, it was decided to perform a right thoracentesis to remove fluid, and also he had an abdominal ultrasound performed. 1100 cc of fluid was removed during the thoracentesis and this was sent for cytology. Patient's abdominal ultrasound indicated that there was a common bile duct obstruction, I discussed this with oncology and general surgery and an MRCP was performed which showed dilation of the left intrahepatic bile ducts and nonvisualization of the common hepatic duct and common bile duct to the level of the pancreatic head. The distal common bile duct appeared normal. There was also the possibility of a portal hilar mass present. There was also noted to be diffuse ascites and decreased right pleural effusion. On 02/03/2021, an ERCP was performed with insertion of a stent into the common bile duct and a sphincterotomy with free flow of bile from the common bile duct. There was noted to be a mid common bile duct obstruction felt to be a probable neoplasm, brushings were taken of the area. After the patient's procedure, he had no increased abdominal pain and he was discharged home in stable condition on 02/03/2021 to follow-up with oncology. Patient was seen and examined on 02/03/2021: On examination he appeared in good health and spirits. Vital signs as documented. Skin warm and dry and without overt rashes. Neck without JVD, neck was supple, trachea midline, thyroid was normal. Lungs clear bilaterally, normal air movement was noted. Heart exam notable for regular rhythm, normal sounds and absence of murmurs, rubs or gallops. Abdomen unremarkable and without evidence of organomegaly, masses, or abdominal aortic enlargement. Bowel sounds are present, abdomen was moderately distended tympanic, abdomen was nontender. Extremities nonedematous, no cyanosis was noted, no clubbing was noted. Neuro: Cranial nerves II through XII are grossly intact, no focal motor deficits were noted, sensation to light touch and pinprick intact, motor exam 5/5 throughout. Psych: Patient is alert and oriented x3, he does not appear anxious or depressed, he does not appear agitated. Patient was discharged home in stable condition on 02/03/2021. Patient Problems: Active and Suspected Problems Metastatic colon cancer to liver (Suspected) Bilateral pleural effusion (Acute) Obstructive jaundice (Acute) - Physical Exam Vitals/I&O's: Vital Signs Temp Pulse Resp BP Pulse Ox 97.8 F 99 20 H 132/69 H 92 02/03/21 12:00 02/03/21 14:20 02/03/21 12:00 02/03/21 12:00 02/03/21 13:45 Oxygen Flow Rate (L/min) 2 Oxygen Delivery Method [5] Room Air Oxygen Delivery Method [4] Room Air Oxygen Delivery Method [3] Room Air Oxygen Delivery Method [2] Room Air Oxygen Delivery Method [1 ( Room Air Initial Baseline)] Oxygen Delivery Method Room Air Weight: 76.6 kg Body Mass Index (BMI) 27.2 Finger Stick Blood Glucose 338 Intake and Output for Last 24 Hours 02/01/21 02/02/21 02/03/21 23:59 23:59 23:59 Intake Total 1660 / 1660 1330 / 1330 106 / 106 Output Total 5525 / 5525 3475 / 3475 300 / 300 Balance -3865 / -3865 -2145 / -2145 -194 / -194 Microbiology Past 72 Hours 01/31/21 20:00 Mucosa - Nose SARS-CoV-2 Antigen (Rapid) - Final Laboratory Results 02/02/21 16:18: POC Glucose 141 H 02/02/21 21:28: POC Glucose 186 H 02/03/21 06:02: Total Bilirubin 4.40 H, Direct Bilirubin 3.88 H, AST 106 H, ALT 97 H, Alkaline Phosphatase 312 H, Total Protein 6.3 L, Albumin 2.2 L, Globulin 4.1 02/03/21 07:49: POC Glucose 112 H 02/03/21 09:31: POC Glucose 100 02/03/21 10:54: POC Glucose 119 H Current Medications Acetaminophen (Acetaminophen 325 Mg Tablet) 650 mg PO Q6H PRN PRN PRN Reason: Pain Score 1-10/Temp > 100.7 F Al Hydroxide/Mg Hydroxide (Mag Hydrox/Al Hydrox/Simeth 30 Ml Udc) 30 ml PO Q6H PRN PRN PRN Reason: Gastric Burning Albuterol Sulfate (Albuterol 2.5 Mg/3 Ml Vial.Neb.) 2.5 mg INHALATION Q2H PRN PRN PRN Reason: SOB/Wheezing Carbamazepine (Carbamazepine 200 Mg Tablet) 400 mg PO BREAKFAST [facility] Last Admin: 02/03/21 11:50 Dose: 400 mg Documented by: Carbamazepine (Carbamazepine 200 Mg Tablet) 600 mg PO QHS [facility] Last Admin: 02/02/21 21:25 Dose: 600 mg Documented by: Cyclobenzaprine HCl (Cyclobenzaprine Hcl 10 Mg Tablet) 10 mg PO TID PRN PRN PRN Reason: MUSCLE SPASM Dextrose (Dextrose 50%-Water 25 Gm/50 Ml Disp.Syrin) 0 gm IV X1 PRN; Protocol PRN Reason: Hypoglycemia Last Admin: 01/31/21 21:51 Dose: 25 gm Documented by: Dicyclomine HCl (Dicyclomine 10 Mg Capsule) 20 mg PO TIDAC [facility] Last Admin: 02/03/21 11:51 Dose: 20 mg Documented by: Enoxaparin Sodium (Enoxaparin 40 Mg/0.4 Ml Syringe) 40 mg SC DAILY [facility] Last Admin: 01/31/21 22:25 Dose: Not Given Documented by: Furosemide (Furosemide 40 Mg/4 Ml Vial) 40 mg IV BID@1000,1800 [facility] Last Admin: 02/03/21 11:52 Dose: 40 mg Documented by: Glucagon (Glucagon 1 Mg/Ml Syringe) 1 mg IM .X1 PRN PRN Reason: Hypoglycemia Insulin Glargine (Insulin Glargine 100 Units/Ml Pen) 10 units SC BREAKFAST [facility] Last Admin: 02/03/21 11:21 Dose: Not Given Documented by: Insulin Human Lispro (Insulin Lispro 100 Unit/Ml Insuln.Pen) 15 unit SC TIDCM [facility] Last Admin: 02/03/21 11:22 Dose: Not Given Documented by: Lorazepam (Lorazepam 1 Mg Tablet) 2 mg PO Q8H PRN PRN PRN Reason: ANXIETY Metoclopramide HCl (Metoclopramide 10 Mg Tablet) 10 mg PO Q8H PRN PRN PRN Reason: GI CRAMPING Morphine Sulfate (Morphine 2 Mg/Ml Syringe) 2 mg IV Q3H PRN PRN PRN Reason: Pain Score 6-10 Nitroglycerin (Nitroglycerin (Inpatient Use) 0.4 Mg Tab.Subl) 0.4 mg SL Q5M PRN PRN Reason: CARDIAC/CHEST PAIN Nutritional Formula (Lactose Free) (Ensure Enlive 120 Ml Liquid) 120 ml PO 4X/DAY [facility] Last Admin: 02/03/21 14:38 Dose: 120 ml Documented by: Ondansetron HCl (Ondansetron 4 Mg/2 Ml Vial) 4 mg IV Q8H PRN PRN PRN Reason: NAUSEA/VOMITING Oxycodone HCl (Oxycodone 5 Mg Tablet) 5 mg PO Q4H PRN PRN PRN Reason: Pain Score 4-5 Last Admin: 02/02/21 23:16 Dose: 5 mg Documented by: Oxycodone HCl (Oxycodone Cr 20 Mg Tablet) 40 mg PO Q12 [facility] Last Admin: 02/03/21 13:37 Dose: 40 mg Documented by: Pantoprazole Sodium (Pantoprazole Sodium 40 Mg Tablet) 40 mg PO DAILY [facility] Last Admin: 02/03/21 11:51 Dose: 40 mg Documented by: Potassium Chloride (Potassium Chloride Oral Tablet 10 Meq) 10 meq PO BIDCM [facility] Last Admin: 02/03/21 11:53 Dose: Not Given Documented by: Pregabalin (Pregabalin 75 Mg Capsule) 150 mg PO BID [facility] Last Admin: 02/03/21 11:54 Dose: 150 mg Documented by: Senna/Docusate Sodium (Senna/Docusate Sodium 1 Tablet) 2 tablet PO BID PRN PRN PRN Reason: Constipation Sodium Chloride (0.9% Saline Lock 10 Ml Syringe) 10 - 40 ml IV UD PRN PRN Reason: SALINE FLUSH Last Admin: 02/03/21 11:52 Dose: 10 ml Documented by: Spironolactone (Spironolactone 25 Mg Tablet) 25 mg PO DAILY [facility] Last Admin: 02/03/21 11:51 Dose: 25 mg Documented by: Tamsulosin HCl (Tamsulosin Hcl 0.4 Mg Capsule) 0.4 mg PO QHS [facility] Last Admin: 02/02/21 21:25 Dose: 0.4 mg Documented by: Discharge Activity: Return to Normal Activity Weight Bearing Status: Full weight bearing Home Medications: Medications to take at Discharge Carbamazepine [Tegretol] 600 mg PO QHS 10/29/13 Carbamazepine [Tegretol] 400 mg PO BREAKFAST 09/10/14 Pregabalin [Lyrica] 150 mg PO BID 09/11/14 Lorazepam [Ativan] 2 mg PO Q8H PRN PRN 05/08/15 Omeprazole [Prilosec] 40 mg PO DAILY 12/05/16 Tamsulosin HCl [Flomax] 0.4 mg PO QHS 12/05/16 Cyclobenzaprine HCl 10 mg PO PRN PRN 01/08/18 Metoclopramide [Reglan] 10 mg PO PRN PRN 01/08/18 Multivitamins,Therapeutic [Multivitamin] 1 tablet PO DAILY 01/08/18 Pyridoxine HCl (Vitamin B6) [B-6] 200 mg PO DAILY 01/08/18 Dicyclomine HCl [Bentyl] 20 mg PO TIDAC 10/12/20 Furosemide 40 mg PO DAILY 10/12/20 Potassium Chloride 10 meq PO BID 10/12/20 Green Tea [place] Extract [Green Tea] 500 mg PO DAILY 01/17/21 Oxycodone CR [Oxycontin] 40 mg PO Q12H 01/17/21 Hydrocodone/Acetaminophen [Hydrocodone-Acetamin 10-325 mg] 1 tab PO Q4H PRN PRN 01/31/21 Spironolactone [Aldactone] 25 mg PO DAILY 01/31/21 Insulin Aspart [Novolog Flexpen] 10 units SC TIDCM #0 02/03/21 Insulin Degludec [Tresiba Flextouch U-100] 10 unit SQ QHS #0 02/03/21 Primary Care Physician: Elizabeth Rodriguez MD [Primary Care Provider] - Please Follow Up With: Farhan Sanchez DO When: tomorrow at 11:15 Please Follow Up With: Elizabeth Rodriguez MD Disposition: Home Minutes spent on discharge:: 33 Patient Condition:: Stable Medical Necessity - Tobacco Use Smoking Status: Former smoker Tobacco Use: Cigarettes Meaningful Use Info Meaningful Use Diagnoses (Choose all that apply): None applicable Inpatient E&M: 02143 Disch Hosp
--- NOTE | 2021-02-03 15:45 | PN_ITS ---
Patient Problems: Active and Suspected Problems Metastatic colon cancer to liver (Suspected) Bilateral pleural effusion (Acute) Obstructive jaundice (Acute) Subjective: The date of this entry is 02/02/2021. Patient was seen and examined today, he underwent a thoracentesis today with removal of 1100 cc of fluid, the fluid was sent for cytology. I also ordered an abdominal ultrasound which showed dilated hepatic ducts but nonvisualization of the common bile duct. I spent some time talking with the patient and his , I also talked with Dr. Sanchez the patient's oncologist and general surgery, it was recommended the patient undergo an MRCP which was performed late this afternoon. The MRCP shows obstruction of the common bile duct proximal to the distal common bile duct. I talked with general surgery and they are going to perform an ERCP on the patient tomorrow with possible stent placement. Objective: General: Alert, Oriented x3, Cooperative, No apparent distress, Well developed HEENT: Atraumatic, PERRLA, EOMI, Normocephalic Oral: Moist Mucosa Neck: Supple, No JVD, Trachea Midline, Thyroid Normal Size and Texture Lungs: Clear to auscultation, Normal air movement, No rhonchi, No wheeze, No rales Cardiovascular: Regular rate, Regular Rhythm, Normal S1, Normal S2, No murmurs, PMI Normal, No rub noted, No Gallop Abdomen: Bowel Sounds Present, Soft, Non Tender, moderate abdominal distention is noted but the abdomen is tympanic Extremities: No clubbing, No cyanosis, Capillary Refill Less than 3 Seconds Skin: No rashes, No breakdown Musculoskeletal: No Tenderness to Palpation of Joints or Extremities Neurological: Cranial nerves II-XII grossly intact, Neuro grossly intact, Sensory exam intact to light touch and pain Psych/Mental Status: Normal Affect, Appropriate, Alert and oriented to time, place, person, mood and affect - Physical Exam Vitals/I&O's: Vital Signs Temp Pulse Resp BP Pulse Ox 97.8 F 99 20 H 132/69 H 92 02/03/21 12:00 02/03/21 14:20 02/03/21 12:00 02/03/21 12:00 02/03/21 13:45 Oxygen Flow Rate (L/min) 2 Oxygen Delivery Method [5] Room Air Oxygen Delivery Method [4] Room Air Oxygen Delivery Method [3] Room Air Oxygen Delivery Method [2] Room Air Oxygen Delivery Method [1 ( Room Air Initial Baseline)] Oxygen Delivery Method Room Air Weight: 76.6 kg Body Mass Index (BMI) 27.2 Finger Stick Blood Glucose 338 Intake and Output for Last 24 Hours 02/01/21 02/02/21 02/03/21 23:59 23:59 23:59 Intake Total 1660 / 1660 1330 / 1330 106 / 106 Output Total 5525 / 5525 3475 / 3475 300 / 300 Balance -3865 / -3865 -2145 / -2145 -194 / -194 Microbiology Past 72 Hours 01/31/21 20:00 Mucosa - Nose SARS-CoV-2 Antigen (Rapid) - Final Laboratory Results 02/02/21 16:18: POC Glucose 141 H 02/02/21 21:28: POC Glucose 186 H 02/03/21 06:02: Total Bilirubin 4.40 H, Direct Bilirubin 3.88 H, AST 106 H, ALT 97 H, Alkaline Phosphatase 312 H, Total Protein 6.3 L, Albumin 2.2 L, Globulin 4.1 02/03/21 07:49: POC Glucose 112 H 02/03/21 09:31: POC Glucose 100 02/03/21 10:54: POC Glucose 119 H Current Medications Acetaminophen (Acetaminophen 325 Mg Tablet) 650 mg PO Q6H PRN PRN PRN Reason: Pain Score 1-10/Temp > 100.7 F Al Hydroxide/Mg Hydroxide (Mag Hydrox/Al Hydrox/Simeth 30 Ml Udc) 30 ml PO Q6H PRN PRN PRN Reason: Gastric Burning Albuterol Sulfate (Albuterol 2.5 Mg/3 Ml Vial.Neb.) 2.5 mg INHALATION Q2H PRN PRN PRN Reason: SOB/Wheezing Carbamazepine (Carbamazepine 200 Mg Tablet) 400 mg PO BREAKFAST [facility] Last Admin: 02/03/21 11:50 Dose: 400 mg Documented by: Carbamazepine (Carbamazepine 200 Mg Tablet) 600 mg PO QHS [facility] Last Admin: 02/02/21 21:25 Dose: 600 mg Documented by: Cyclobenzaprine HCl (Cyclobenzaprine Hcl 10 Mg Tablet) 10 mg PO TID PRN PRN PRN Reason: MUSCLE SPASM Dextrose (Dextrose 50%-Water 25 Gm/50 Ml Disp.Syrin) 0 gm IV X1 PRN; Protocol PRN Reason: Hypoglycemia Last Admin: 01/31/21 21:51 Dose: 25 gm Documented by: Dicyclomine HCl (Dicyclomine 10 Mg Capsule) 20 mg PO TIDAC [facility] Last Admin: 02/03/21 11:51 Dose: 20 mg Documented by: Enoxaparin Sodium (Enoxaparin 40 Mg/0.4 Ml Syringe) 40 mg SC DAILY [facility] Last Admin: 01/31/21 22:25 Dose: Not Given Documented by: Furosemide (Furosemide 40 Mg/4 Ml Vial) 40 mg IV BID@1000,1800 [facility] Last Admin: 02/03/21 11:52 Dose: 40 mg Documented by: Glucagon (Glucagon 1 Mg/Ml Syringe) 1 mg IM .X1 PRN PRN Reason: Hypoglycemia Insulin Glargine (Insulin Glargine 100 Units/Ml Pen) 10 units SC BREAKFAST [facility] Last Admin: 02/03/21 11:21 Dose: Not Given Documented by: Insulin Human Lispro (Insulin Lispro 100 Unit/Ml Insuln.Pen) 15 unit SC TIDCM [facility] Last Admin: 02/03/21 11:22 Dose: Not Given Documented by: Lorazepam (Lorazepam 1 Mg Tablet) 2 mg PO Q8H PRN PRN PRN Reason: ANXIETY Metoclopramide HCl (Metoclopramide 10 Mg Tablet) 10 mg PO Q8H PRN PRN PRN Reason: GI CRAMPING Morphine Sulfate (Morphine 2 Mg/Ml Syringe) 2 mg IV Q3H PRN PRN PRN Reason: Pain Score 6-10 Nitroglycerin (Nitroglycerin (Inpatient Use) 0.4 Mg Tab.Subl) 0.4 mg SL Q5M PRN PRN Reason: CARDIAC/CHEST PAIN Nutritional Formula (Lactose Free) (Ensure Enlive 120 Ml Liquid) 120 ml PO 4X/DAY [facility] Last Admin: 02/03/21 14:38 Dose: 120 ml Documented by: Ondansetron HCl (Ondansetron 4 Mg/2 Ml Vial) 4 mg IV Q8H PRN PRN PRN Reason: NAUSEA/VOMITING Oxycodone HCl (Oxycodone 5 Mg Tablet) 5 mg PO Q4H PRN PRN PRN Reason: Pain Score 4-5 Last Admin: 02/02/21 23:16 Dose: 5 mg Documented by: Oxycodone HCl (Oxycodone Cr 20 Mg Tablet) 40 mg PO Q12 [facility] Last Admin: 02/03/21 13:37 Dose: 40 mg Documented by: Pantoprazole Sodium (Pantoprazole Sodium 40 Mg Tablet) 40 mg PO DAILY [facility] Last Admin: 02/03/21 11:51 Dose: 40 mg Documented by: Potassium Chloride (Potassium Chloride Oral Tablet 10 Meq) 10 meq PO BIDCM [facility] Last Admin: 02/03/21 11:53 Dose: Not Given Documented by: Pregabalin (Pregabalin 75 Mg Capsule) 150 mg PO BID [facility] Last Admin: 02/03/21 11:54 Dose: 150 mg Documented by: Senna/Docusate Sodium (Senna/Docusate Sodium 1 Tablet) 2 tablet PO BID PRN PRN PRN Reason: Constipation Sodium Chloride (0.9% Saline Lock 10 Ml Syringe) 10 - 40 ml IV UD PRN PRN Reason: SALINE FLUSH Last Admin: 02/03/21 11:52 Dose: 10 ml Documented by: Spironolactone (Spironolactone 25 Mg Tablet) 25 mg PO DAILY [facility] Last Admin: 02/03/21 11:51 Dose: 25 mg Documented by: Tamsulosin HCl (Tamsulosin Hcl 0.4 Mg Capsule) 0.4 mg PO QHS [facility] Last Admin: 02/02/21 21:25 Dose: 0.4 mg Documented by: Medical Necessity - Tobacco Use Smoking Status: Former smoker Tobacco Use: Cigarettes Assessment/Plan All Active Problems Bilateral pleural effusion (Acute) Obstructive jaundice (Acute) #1 ascites-etiology unclear at this point #2 stage IV colon cancer with metastatic spread to the lungs-patient underwent a right thoracentesis today, fluid will be sent for cytology #3 type 2 diabetes-continue to monitor blood sugars #4 hyperlipidemia #5 bipolar disorder #6 obstructive jaundice with common bile duct obstruction-secondary possibly to neoplasm, patient will undergo an ERCP tomorrow, a stent will need to be placed, if this is not successful patient will have to be transferred to another facility. Inpatient E&M: 51305 [facility] Hosp L2
--- NOTE | 2021-02-04 12:46 | CASEMGMT ---
CATHLEEN CORTEZ Discharge Follow-Up Phone Call. Lace: 11 Strata: 3 Discharge Date: 02/03/21 Adm Dx: SOB, Malignant ascites Call to pt to inquire about how he has been doing since being discharged from the hospital. Pt's , Jessika, answered. She states they were in to see Dr Sanchez today and he reviewed pathology results with them. She states pt is scheduled for a consult with Dr Lainez on Sunday for a drain placement. 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 She denies having any questions about the discharge instructions or medications. Pt also has a f/u appt with his PCP, Dr Rodriguez, on 02/11. Mrs Nayak states to CATHLEEN CORTEZ, Please tell all the nurses we sure appreciate them. They were all great. Luma SEAMAN RN, CM
== END 2021-02-03 16:02 | disposition home or self-care (01) | DRG 445 ==
LOC: ED 17:11 → PCU 20:15
PROVIDERS: Surgery; Admitting Provider Internal Medicine; Emergency Provider Student in an Organized Health Care Education/Training Program; PCP Internal Medicine; Visit Provider Internal Medicine
PROC: 0FD98ZX Extraction of Common Bile Duct, Via Natural or Artificial Opening Endoscopic, Diagnostic (ICD-10-PCS; CPT 43260; principal; 2021-02-03 07:55)
DX: K83.1 Obstruction of bile duct (principal); R18.8 Other ascites; J90 Pleural effusion, not elsewhere classified; C78.7 Secondary malignant neoplasm of liver and intrahepatic bile duct; C78.00 Secondary malignant neoplasm of unspecified lung; C18.9 Malignant neoplasm of colon, unspecified; E11.9 Type 2 diabetes mellitus without complications; Z90.49 Acquired absence of other specified parts of digestive tract; Z87.891 Personal history of nicotine dependence; Z79.4 Long term (current) use of insulin; F31.9 Bipolar disorder, unspecified; N40.0 Benign prostatic hyperplasia without lower urinary tract symptoms; Z66 Do not resuscitate; Z79.899 Other long term (current) drug therapy; E78.5 Hyperlipidemia, unspecified
CPT/HCPCS: 32555; 36415; 36591; 49083; 71046; 71275; 74174; 74181; 74328; 76000; 76705; 80053; 80076; 81001; 82962; 83690; 83735; 84484; 85025; 85610; 85730; 87426; 88108; 88305; 88313; 88341; 88342; 93005; 99251; 99285; J7030; Q9967; A4216; G0463; J1940; J2405

== ENCOUNTER 2021-02-07 12:54 | Day surgery (SDC) | payer BC, MEDICARE, SELFPAY ==
[2021-02-03 07:51] VITALS: BMI 27.2
[2021-02-07] VITALS (8 sets, daily range): BP systolic 103–130; BP diastolic 58–94; PULSE 16–106; RESP 16–18; TEMP 36.3–37.4; O2SAT 94–97; BMI 27.4
--- NOTE | 2021-02-07 12:46 | HP.PCM_ITS ---
Problem List (1) Malignant ascites Status: Acute History and Physical Date of Admission: 02/07/21 Intake Vital Signs 02/07/21 BP 121/77 H 02/07/21 Blood Pressure Location Lt brachial 02/07/21 Position Sitting 02/07/21 Respiration 18 02/07/21 Pulse 104 H 02/07/21 Pulse Source NIBP 02/07/21 Temp 98.5 F 02/07/21 Temp Source Temporal 02/07/21 Pulse Oximetry (%) 92 02/07/21 Oxygen Delivery Method room air Intake Visit Reasons: PLUERX CATH PLACEMENT Chief Complaint: discuss Pleurex Marketing Traffic Coordinator Required: No Is patient in pain?: No Allergies amoxicillin trihydrate [From Augmentin] Allergy (Intermediate, Verified 10/12/20 09:01) Swelling eszopiclone [From Lunesta] Allergy (Mild, Verified 10/12/20 09:01) Rash tetracycline [Tetracycline] Allergy (Unknown, Verified 01/17/21 16:18) Unknown aspirin [From Fiorinal] Allergy (Verified 01/17/21 16:18) Unknown butalbital [From Fiorinal] Allergy (Verified 10/12/20 09:01) Unknown caffeine [From Fiorinal] Allergy (Verified 01/17/21 16:18) Unknown coconut Allergy (Verified 01/17/21 16:18) Anaphylaxis coconut oil Allergy (Verified 01/17/21 16:18) Anaphylaxis divalproex sodium [From Depakote] Allergy (Verified 01/17/21 16:18) Unknown fludrocortisone acetate [From Florinef] Allergy (Verified 01/17/21 16:18) Unknown ketorolac tromethamine [From Toradol] Allergy (Verified 01/17/21 16:18) Unknown meperidine HCl [From Demerol] Allergy (Verified 01/17/21 16:18) Swelling palm kernel oil Allergy (Verified 01/31/21 15:29) Food Allergy Penicillins Allergy (Verified 01/17/21 16:18) Swelling potassium clavulanate [From Augmentin] Allergy (Verified 01/17/21 16:18) Swelling sitagliptin phosphate [From Januvia] Allergy (Verified 01/17/21 16:18) Other zolpidem tartrate [From Ambien] Allergy (Verified 01/17/21 16:18) Unknown metformin Adverse Reaction (Mild, Verified 01/17/21 16:18) Nausea doxycycline Adverse Reaction (Verified 01/17/21 16:18) Unknown morphine Allergy (Severe, Uncoded 01/17/21 16:18) Swelling Medications Carbamazepine [Tegretol] 600 mg PO QHS 10/29/13 [History Confirmed 02/07/21] Carbamazepine [Tegretol] 400 mg PO BREAKFAST 09/10/14 [History Confirmed 02/07/21] Pregabalin [Lyrica] 150 mg PO BID 09/11/14 [History Confirmed 02/07/21] Lorazepam [Ativan] 2 mg PO Q8H PRN PRN 05/08/15 [History Confirmed 02/07/21] Omeprazole [Prilosec] 40 mg PO DAILY 12/05/16 [History Confirmed 02/07/21] Tamsulosin HCl [Flomax] 0.4 mg PO QHS 12/05/16 [History Confirmed 02/07/21] Cyclobenzaprine HCl 10 mg PO PRN PRN 01/08/18 [History Confirmed 02/07/21] Metoclopramide [Reglan] 10 mg PO PRN PRN 01/08/18 [History Confirmed 02/07/21] Multivitamins,Therapeutic [Multivitamin] 1 tab PO DAILY 01/08/18 [History Confirmed 02/07/21] Pyridoxine HCl (Vitamin B6) [B-6] 200 mg PO DAILY 01/08/18 [History Confirmed 02/07/21] Dicyclomine HCl [Bentyl] 20 mg PO TIDAC 10/12/20 [History Confirmed 02/07/21] Furosemide 40 mg PO DAILY 10/12/20 [History Confirmed 02/07/21] Potassium Chloride 10 meq PO BID 10/12/20 [History Confirmed 02/07/21] Green Tea [place] Extract [Green Tea] 500 mg PO DAILY 01/17/21 [History Confirmed 02/07/21] Oxycodone CR [Oxycontin] 40 mg PO Q12H 01/17/21 [History Confirmed 02/07/21] Hydrocodone/Acetaminophen [Hydrocodone-Acetamin 10-325 mg] 1 tab PO Q4H PRN PRN 01/31/21 [History Confirmed 02/07/21] Spironolactone [Aldactone] 25 mg PO DAILY 01/31/21 [History Confirmed 02/07/21] Insulin Aspart [Novolog Flexpen] 10 units SC TIDCM #0 02/03/21 [Rx Confirmed 02/07/21] Insulin Degludec [Tresiba Flextouch U-100] 10 unit SQ QHS #0 02/03/21 [Rx Confirmed 02/07/21] PFSH Medical History (Updated 02/07/21 @ 12:37 by Selina Hernandes) Anxiety and depression (Acute) Small bowel obstruction (Chronic) Metastatic colon cancer to liver (Suspected) Ascites (Chronic) Bilateral pleural effusion (Acute) Obstructive jaundice (Acute) Neurogenic syncope (Chronic) DM type 2 (diabetes mellitus, type 2) (Chronic) Colon cancer (Chronic) Bipolar disorder (Chronic) Hyperlipidemia (Chronic) Surgical History (Updated 02/07/21 @ 12:37 by Selina Hernandes) History of colectomy (Acute ~2014) History of colonoscopy (Acute) History of knee replacement (Acute) History of resection of liver (Acute) Social History (Updated 02/07/21 @ 12:[address] Jasbir Lainez MD) Smoking Status: Former smoker HPI HPI HPI: UYEN BRIGGS, is a 56 M who presents to the office today for HPI HPI HPI: Patient is a 56-year-old male with a history of colon cancer. The patient had a colectomy in the past with metastatectomy. The patient was treated postoperatively and recently was admitted to the hospital with new onset ascites and pleural effusion. The patient had ERCP and the brushings are suggestive of adenocarcinoma. The patient is here today for discussion of Pleurx catheter in the abdomen and the patient was recently made hospice. ROS General General: Yes weight change, fatigue and colon cancer; no appetite, breast cancer or weakness HEENT HEENT: No difficulty swallowing, eye injury, eye surgery, swollen glands or hoarseness Endo Endocrine: Yes diabetes mellitus; no thyroid disease, thyroid cancer, Hair loss, heat intolerance or cold intolerance Musc Musculoskeletal: No back problems, arthritis, rheumatoid arthritis, gout or joint pain Cardio Cardiovascular: No murmur, pacemaker, heart disease, atrial fibrillation, high blood pressure, heart attack, heart stent, palpitations, shortness of breat with exertion or chest pain Psych Psychiatric: Yes depression and anxiety; no hearing voices Resp Respiratory: No shortness of breath, Yes sleep apnea, No cough, No COPD, No asthma, No emphysema, No wheezing Gastro Gastrointestinal: Yes abdominal pain, No nausea or vomiting, No diarrhea, No constipation, No blood in stool, Yes acid reflux, No hemorrhoids, No ulcers, No gallbladder problem, No black,tarry stools Natanael Hematologic: No blood thinners, No blood disorders, No bleeding, No anemia, No blood clots Neuro Neurologic: No weakness Exam Const General: cooperative Orientation: alert, oriented x3 Resp Effort & Inspection: normal respiratory effort Auscultation: clear to auscultation bilaterally Cardio Rate: regular rate Rhythm: regular rhythm Heart Sounds: no murmurs GI Inspection: non-distended Palpation: soft, nontender Skin General: jaundice Assessment & Plan Problems 1. Malignant ascites R18.0 Plan The patient has ascites which is likely due to his metastatic cancer. The patient was recently admitted to hospice. The patient presents for discussion of Pleurx catheter in the abdomen for management of his malignant ascites. I discussed the procedure with him in detail. I discussed the risks including not limited to bleeding, infection, injury to underlying bowel. The patient understands risks and would like Pleurx catheter placed. The patient is here and has transport and I will see if we can add them on today for placement of this catheter as the patient is very uncomfortable. Jasbir Lainez MD Pager: [facility] [address] [place] [address], [address] [place] [address] Office:
[2021-02-07] MEDS: Lactated Ringers 1,000 ML 100 ML IV (14:05)
[2021-02-07 14:16] LABS: Bedside Glucose 145 mg/dL (70-110)
--- NOTE | 2021-02-07 15:38 | OP.PCM_ITS ---
Problem List (1) Malignant ascites Status: Acute Report of Operation Date of Procedure: 02/07/21 Pre-Operative Diagnosis: Malignant ascites Post-Operative Diagnosis: Same Surgery/Procedure Performed:: Ultrasound-guided intraperitoneal Pleurx catheter placement Specimen's removed: 2500 cc of ascites Description of Procedure: Patient was brought back to the operating room and left abdomen was prepped and draped in usual sterile fashion. Ultrasound was used to localize a segment of the abdomen with copious ascites. The skin was injected with local anesthetic in 2 places. 2 small incisions were made with a scalpel. The needle was placed into the abdomen and once ascites was aspirated the guidewire was placed into the abdomen and the needle was removed. The peel-away sheath was placed over the guidewire and into the abdomen and the guidewire was removed. The catheter was then guided from the lower incision to the upper one in place to the peel- away sheath and the peel-away sheath was removed. The ascites was suctioned and 2500 cc of straw-colored fluid were removed. The upper skin incision was closed with the included absorbable suture and then glue was placed. The silk suture was then used to suture the catheter to the skin. A dressing was applied. Patient was taken to PACU in stable condition. Grafts/Implants Used: Pleurx catheter into the abdominal cavity - Admit VTE Documentation VTE Mechan Device Prophylaxis: SCD's
--- NOTE | 2021-02-07 15:41 | DCINST_ITS ---
Discharge Diet: Light diet - advance as tolerated Discharge Activity: May Shower Call your doctor if your incision/area has: Sudden Increased Bleeding, Increased Pain/ Swelling, Increased Redness Call your doctor if you observe: Fever of 101 or Higher Suture Line Care: Avoid Pulling/Pushing, Avoid Pinching/Bending Allergies/Adverse Reactions: Allergies amoxicillin trihydrate [From Augmentin] Allergy (Intermediate, Verified 10/12/20 09:01) Swelling eszopiclone [From Lunesta] Allergy (Mild, Verified 10/12/20 09:01) Rash tetracycline [Tetracycline] Allergy (Unknown, Verified 01/17/21 16:18) Unknown aspirin [From Fiorinal] Allergy (Verified 01/17/21 16:18) Unknown butalbital [From Fiorinal] Allergy (Verified 10/12/20 09:01) Unknown caffeine [From Fiorinal] Allergy (Verified 01/17/21 16:18) Unknown coconut Allergy (Verified 01/17/21 16:18) Anaphylaxis coconut oil Allergy (Verified 01/17/21 16:18) Anaphylaxis divalproex sodium [From Depakote] Allergy (Verified 01/17/21 16:18) Unknown fludrocortisone acetate [From Florinef] Allergy (Verified 01/17/21 16:18) Unknown ketorolac tromethamine [From Toradol] Allergy (Verified 01/17/21 16:18) Unknown meperidine HCl [From Demerol] Allergy (Verified 01/17/21 16:18) Swelling palm kernel oil Allergy (Verified 01/31/21 15:29) Food Allergy Penicillins Allergy (Verified 01/17/21 16:18) Swelling potassium clavulanate [From Augmentin] Allergy (Verified 01/17/21 16:18) Swelling sitagliptin phosphate [From Januvia] Allergy (Verified 01/17/21 16:18) Other zolpidem tartrate [From Ambien] Allergy (Verified 01/17/21 16:18) Unknown metformin Adverse Reaction (Mild, Verified 01/17/21 16:18) Nausea doxycycline Adverse Reaction (Verified 01/17/21 16:18) Unknown morphine Allergy (Severe, Uncoded 01/17/21 16:18) Swelling Medications to take at Discharge Carbamazepine [Tegretol] 600 mg PO QHS 12/04/13 Carbamazepine [Tegretol] 400 mg PO BREAKFAST 09/10/14 Pregabalin [Lyrica] 150 mg PO BID 09/11/14 Lorazepam [Ativan] 2 mg PO Q8H PRN PRN 05/08/15 Omeprazole [Prilosec] 40 mg PO DAILY 12/05/16 Tamsulosin HCl [Flomax] 0.4 mg PO QHS 12/05/16 Cyclobenzaprine HCl 10 mg PO PRN PRN 01/08/18 Metoclopramide [Reglan] 10 mg PO PRN PRN 01/08/18 Dicyclomine HCl [Bentyl] 20 mg PO TIDAC 10/12/20 Furosemide 40 mg PO DAILY 10/12/20 Green Tea [place] Extract [Green Tea] 500 mg PO DAILY 01/17/21 Oxycodone CR [Oxycontin] 40 mg PO Q12H 01/17/21 Spironolactone [Aldactone] 25 mg PO DAILY 01/31/21 Insulin Aspart [Novolog Flexpen] 10 units SC TIDCM #0 02/03/21 Insulin Degludec [Tresiba Flextouch U-100] 10 unit SQ QHS #0 02/03/21 Primary Care Physician: Elizabeth Rodriguez MD [Primary Care Provider] - Test Results: Test results from this visit will be discussed in further detail at your follow- up appointment, if applicable. Please Follow Up With: Jasbir Lainez MD When: As needed
== END 2021-02-07 16:44 | disposition home or self-care (01) ==
LOC: SDC 12:57 → AC 12:57
PROVIDERS: PCP Internal Medicine; Referring Provider Surgery; Visit Provider Surgery
PROC: (CPT 32550; principal; 2021-02-07 14:15)
DX: C18.9 Malignant neoplasm of colon, unspecified (principal); R18.0 Malignant ascites; C78.7 Secondary malignant neoplasm of liver and intrahepatic bile duct; C78.02 Secondary malignant neoplasm of left lung; C78.01 Secondary malignant neoplasm of right lung; G47.33 Obstructive sleep apnea (adult) (pediatric); K21.9 Gastro-esophageal reflux disease without esophagitis; E11.9 Type 2 diabetes mellitus without complications; F31.9 Bipolar disorder, unspecified; F41.9 Anxiety disorder, unspecified; Z87.891 Personal history of nicotine dependence; Z90.49 Acquired absence of other specified parts of digestive tract; Z79.4 Long term (current) use of insulin; Z79.899 Other long term (current) drug therapy
CPT/HCPCS: 49083; 82962; J7120; A4216